=== PATIENT | female | born 1940 | race Hispanic/Latino ===

== ENCOUNTER → 2020-06-27 | Day surgery (SDC) | payer OTHER ==
[~2020-06-27] MED LIST: BUPIVACAINE 0.25% PF 10 ML VIAL ONE
--- OUTSIDE RECORDS SUMMARY | 2020-06-27 07:15 | XMS REPORT | Continuity of Care Document ---
:[address] [facility] t Address [address] [place] [address] Care Team Providers Name Role Phone Julio Cesar Jennings Attending Clinician Doctor Unassigned, Name Attending Clinician Unavailable Carmine North MD Attending Clinician Problems This patient has no known problems. Allergies, Adverse Reactions, Alerts Allergy Allergy Status Severity Reaction(s) Onset Inactive Treating Comm ents Source Name Type Date Date Clinician penicill Adverse Active Info Not [facility] Macrodan Adverse Active Info Not [facility] tin Reaction Available [facility] Cipro Adverse Active Info Not [facility] Reaction Available [facility] Bactrim Adverse Active Info Not [facility] DS Reaction Available [facility] Medications Ordered Filled Start Stop Current Ordering Indication Dosage Frequency Signature Comments Components Source Medication Medication Date Date Medication? Clinician (SIG) Name Name Mary Hernandez Yes Yung 1 tablet [facility] Procedures This patient has no known procedures. Encounters Start End Encounter Admission Attending Care Care Encounter Source Date/Time Date/Time Type Type Clinicians Facility Department ID 2020-05-04 2020-05-04 Refill LOIS Lovell [id number] 00:00:00 00:00:00 Julio Cesar [facility] [id number] Surgical [id number] Specialti [id number] es [address] [place] 2020-05-03 2020-05-03 [facility] [id number] [facility] 2020-04-08 2020-04-08 [facility] [id number] [facility]00 [facility] 2020-04-06 2020-04-06 Orders Doctor MINGO [id number] 00:00:00 00:00:00 Only Unassigned, [facility] [id number] [facility] [id number] 2020-04-05 2020-04-05 [facility] [id number] 00:00:00 00:00:00 [facility] [id number] Surgical [id number] Specialti [id number] es [address] [place] 2020-04-04 2020-04-04 Outpatient [facility] [id number] [facility] 00[facility]:00 [facility] 2020-03-24 2020-03-24 Orders Doctor AGUILA [id number] 00:00:00 00:00:00 Only Unassigned, RANDOL[place] [id number] [facility] [id number] 2020-03-14 2020-03-14 [facility] [id number] 00:00:00 00:00:00 [facility] [id number] Surgical [id number] Specialti [id number] es [address] [place] 2020-03-09 2020-03-09 [facility] [id number] 13:35:04 23:59:00 Encounter Navi Ngo [place] [id number] [place] [id number] [place] [id number] 2020-03-09 2020-03-09 Office Can RILILIAN [id number] 13:56:50 14:25:04 Visit [place] [id number] Surgical [id number] [facility] [id number] es Aura Thomas 2020-03-07 2020-03-07 Outpatient [facility] [id number] [facility] 2020-03-04 2020-03-04 [facility] [id number] [facility] 2020-03-01 2020-03-01 [facility] [id number] [facility] 2020-02-19 2020-02-19 Outpatient [facility] [id number] [facility] 2020-02-18 2020-02-18 Out[facility] [id number] [facility] 2020-02-11 2020-02-11 Out[facility] [id number] [facility] 2020-02-05 2020-02-05 [facility] [id number] [facility] 09:53:00 09:53:00 [facility] l Medicine Outpati ent Clinics 2020-02-04 2020-02-04 [facility] [id number] 10:45:00 10:45:00 t [facility] - Drive [facility] l Medicine Outpati ent Clinics 2020-02-02 2020-02-02 [facility] [id number] [address] 10:40:00 10:40:00 t [facility] - Drive [facility] Medicine l Medicine Outpati ent Clinics 2020-01-22 2020-01-22 [facility] [id number] 09:57:00 09:57:00 t [facility] [employer] [facility] Medicine l Medicine Outpati ent Clinics 2020-01-20 2020-01-20 [facility] [id number] 11:35:00 11:35:00 t [facility] l Medicine Outpati ent Clinics 2020-01-01 2020-01-01 [facility] [id number] 08:45:00 08:45:00 t [facility] l Medicine Outpati ent Clinics 2019-12-14 2019-12-14 [facility] [id number] [facility] 13:15:00 13:15:00 t Specialty/U Fide kes - Specialty rology Memori a /Urology Clinic l Clinic Outpati ent Clinics 2019-12-14 2019-12-14 [facility] [id number] [address] 09:00:00 09:00:00 t [facility] Medicine Outpati ent Clinics 2019-11-27 2019-11-27 [facility] [id number] 15:47:00 15:47:00 t [facility] Medicine Outpati ent Clinics 2019-11-05 2019-11-05 [facility] [id number] 16:14:00 16:14:00 t [facility] l Medicine Outpati ent Clinics 2019-10-14 2019-10-14 [facility] [id number] 10:30:00 10:30:00 t Specialty/U Fide kes - Specialty rology Memori a /Urology Clinic l Clinic Outpati ent Clinics 2019-10-02 2019-10-02 [facility] [id number] [facility] 10:04:00 10:04:00 t [facility] Medicine Outpati ent Clinics 2019-10-02 2019-10-02 [facility] [id number] [address] 10:00:00 10:00:00 t [facility] l Medicine Outpati ent Clinics 2019-10-02 2019-10-02 [facility] [id number] 09:15:00 09:15:00 [place] [employer] s - Drive [facility] Medicine l Medicine Outpati ent Clinics 2019-09-04 2019-09-04 [facility] [id number] 10:51:00 10:51:00 t [place] K[place] s - Drive [facility] Medicine Outpati ent Clinics 2019-07-16 2019-07-16 [facility] [id number] 13:32:00 13:32:00 t [place] K[place] s - Drive [facility] l Medicine Outpati ent Clinics 2019-07-15 2019-07-15 [facility] [id number] 09:30:00 09:30:00 t Specialty/U Fide kes - Specialty rology Memori a /Urology Clinic l Clinic Outpati ent Clinics 2019-07-08 2019-07-08 [facility] [id number] [facility] 16:44:00 16:44:00 [place] - Drive [facility] Medicine Outpati ent Clinics 2019-07-02 2019-07-02 [facility] [id number] 09:30:00 09:30:00 [place] - Drive [facility] Medicine Outpati ent Clinics 2019-06-25 2019-06-25 [facility] [id number] 09:30:00 09:30:00 t Specialty/U Fide kes - Specialty rology Memori a /Urology Clinic l Clinic Outpati ent Clinics 2019-06-16 2019-06-16 [facility] [id number] [facility] 14:49:00 14:49:00 [place] - Drive [facility] Medicine Medicine Outpati ent Clinics 2019-04-21 2019-04-21 [facility] [id number] 16:37:00 16:37:00 [place] - Drive [facility] l Medicine Outpati ent Clinics 2019-04-03 2019-04-03 [facility] [id number] 10:18:00 10:18:[address] [place] [address] - Drive [facility] Medicine Medicine Outpati ent Clinics 2019-04-01 2019-04-01 [facility] [id number] 09:45:00 09:45:[address] [place] [address] - Drive [facility] Medicine l Medicine Outpati ent Clinics 2019-02-19 2019-02-19 [facility] [id number] [facility] 14:34:00 14:34:[address] [place] [address] - Drive [facility] Medicine Medicine Outpati ent Clinics 2019-02-18 2019-02-18 [facility] [id number] [address] 08:03:00 08:03:[address] [place] [address] - Drive [facility] l Medicine Outpati ent Clinics 2019-02-17 2019-02-17 [facility] [id number] 08:36:00 08:36:00 [place] [employer] Luke s - Drive [facility] Medicine Outpati ent Clinics 2019-02-17 2019-02-17 [facility] [id number] 08:30:00 08:30:00 [place] [employer] Luke s - Drive [facility] Medicine Outpati ent Clinics 2019-02-12 2019-02-12 [facility] [id number] 14:02:00 14:02:00 [place] [employer] Luke s - Drive [facility] Medicine Outpati ent Clinics 2019-01-29 2019-01-29 [facility] [id number] 15:37:00 15:37:[address] [place] [address] - Drive [facility] Medicine Medicine Outpati ent Clinics 2018-12-17 2018-12-17 [facility] [id number] 15:00:00 15:00:[address] [place] [address] - Drive [facility] Medicine Outpati ent Clinics 2018-12-11 2018-12-11 [facility] [id number] [facility] 08:15:00 08:15:00 [place] [employer] Luke s - Drive [facility] Medicine Outpati ent Clinics 2018-12-10 2018-12-10 [facility] [id number] 13:26:00 13:26:[address] [place] [address] - Drive [facility] Medicine l Medicine Outpati ent Clinics 2018-12-10 2018-12-10 [facility] [id number] 11:15:00 11:15:[address] [place] [address] - Drive [facility] Medicine l Medicine Outpati ent Clinics 2018-11-25 2018-11-25 [facility] [id number] 09:51:00 09:51:[address] [place] [address] - Drive [facility] Medicine l Medicine Outpati ent Clinics 2018-11-12 2018-11-12 [facility] [id number] 16:03:00 16:03:[address] [place] [address] - Drive [facility] Medicine l Medicine Outpati ent Clinics 2018-09-30 2018-09-30 [facility] [id number] 10:20:00 10:20:[address] [place] [address] - Drive [facility] Medicine l Medicine Outpati ent Clinics 2018-09-25 2018-09-25 [facility] [id number] 09:30:00 09:30:[address] [place] [address] - Drive [facility] Medicine l Medicine Outpati ent Clinics 2018-09-22 2018-09-22 [facility] [id number] 12:14:00 12:14:[address] [place] [address] - Drive [facility] Medicine l Medicine Outpati ent Clinics 2018-09-10 2018-09-10 [facility] [id number] 11:30:00 11:30:[address] [place] [address] - Drive [facility] Medicine l Medicine Outpati ent Clinics 2018-08-26 2018-08-26 [facility] [id number] 08:30:00 08:30:[address] [place] [address] - Drive [facility] Medicine l Medicine Outpati ent Clinics 2018-08-20 2018-08-20 [facility] [id number] 14:30:00 14:30:[address] [place] [address] - Drive [facility] Medicine l Medicine Outpati ent Clinics 2018-08-19 2018-08-19 [facility] [id number] [facility] 12:42:00 12:42:00 t [facility] ent Clinics 2018-08-07 2018-08-07 [facility] [id number] 08:53:00 08:53:00 [place] [employer] - [employer] [facility] ent Clinics 2018-08-01 2018-08-01 [facility] [id number] [facility] 11:15:00 11:15:00 t [facility] 2018-07-25 2018-07-25 [facility] [id number] 10:45:00 10:45:00 [place] [employer] - [employer] [facility] ent Clinics 2018-07-23 2018-07-23 [facility] [id number] 09:00:00 09:00:00 t [facility] ent Clinics 2018-07-09 2018-07-09 [facility] [id number] 14:55:00 14:55:00 t [facility] ent Clinics 2018-07-04 2018-07-04 [facility] [id number] 14:54:00 14:54:00 [place] [facility] - [facility] ent Clinics 2018-06-10 2018-06-10 [facility] [id number] [address] 13:30:00 13:30:00 [place] [employer] - [employer] [facility] ent Clinics 2018-05-28 2018-05-28 [facility] [id number] 11:17:00 11:17:00 [place] - Drive [facility] ent Clinics 2018-05-27 2018-05-27 [facility] [id number] 10:45:00 10:45:[address] [place] [address] - [address] [facility] Medicine l Medicine Outpati ent Clinics 2018-05-27 2018-05-27 [facility] [id number] 09:58:00 09:58:[address] [place] [address] - Drive [facility] Medicine l Medicine Outpati ent Clinics 2018-05-23 2018-05-23 [facility] [id number] 15:20:00 15:20:[address] [place] [address] - Drive [facility] Medicine l Medicine Outpati ent Clinics 2018-05-15 2018-05-15 [facility] [id number] 12:06:00 12:06:[address] - [address] [facility] l Medicine Outpati ent Clinics 2018-04-29 2018-04-29 [facility] [id number] 14:06:00 14:06:[address] [place] [address] - [address] [facility] Medicine l Medicine Outpati ent Clinics 2018-02-25 2018-02-25 [facility] [id number] 08:31:00 08:31:[address] [place] [address] - Drive [facility] Medicine l Medicine Outpati ent Clinics 2018-02-24 2018-02-24 [facility] [id number] [facility] 09:30:00 09:30:[address] [place] [address] - Drive [facility] Medicine l Medicine Outpati ent Clinics 2018-01-30 2018-01-30 [facility] [id number] 11:22:00 11:22:[address] [place] [address] - [address] [facility] Medicine l Medicine Outpati ent Clinics 2018-01-27 2018-01-27 [facility] [id number] [facility] 09:16:00 09:16:[address] [place] [address] - Drive [facility] Medicine l Medicine Outpati ent Clinics 2018-01-15 2018-01-15 [facility] [id number] [facility] 13:10:00 13:10:[address] [place] [address] - Drive [facility] Medicine l Medicine Outpati ent Clinics 2018-01-13 2018-01-13 [facility] [id number] 14:29:00 14:29:[address] - [address] [facility] Medicine Outpati ent Clinics 2018-01-08 2018-01-08 [facility] [id number] 09:00:00 09:00:[address] - Drive [facility] Medicine Outpati ent Clinics 2017-12-19 2017-12-19 [facility] [id number] 10:30:00 10:30:00 [place] [employer] - Drive [facility] Medicine Outpati ent Clinics 2017-12-16 2017-12-16 [facility] [id number] 08:45:00 08:45:00 [place] - Drive [facility] Medicine Outpati ent Clinics 2017-09-16 2017-09-16 [facility] [id number] [facility] 14:47:00 14:47:00 [place] - Drive [facility] Medicine Outpati ent Clinics 2017-09-16 2017-09-16 [facility] [id number] [facility] 10:00:00 10:00:00 [place] - Drive [facility] Medicine Outpati ent Clinics 2017-08-13 2017-08-13 [facility] [id number] 09:30:00 09:30:00 t [place] - Drive [facility] Medicine Outpati ent Clinics Results This patient has no known results.
--- OUTSIDE RECORDS SUMMARY | 2020-06-27 07:16 | XMS REPORT | Summary of Care ---
:1940 Author Organization [facility] - Health Address [address] [place] [address] Care Team Providers Name Role Phone Yung Reyes Primary Care Provider Encounter Details Date Type Department Care Team Description 04/06/2020 Orders Only [facility] Doctor Unassigned, No [address] [facility] [place] [address] [address] [facility] [place] [phone] Allergies Active Allergy Reactions Severity Noted Date Comments Ciprofloxacin Other - See comments 08/05/2015 Dye Other - See comments 08/05/2015 Penicillins Other - See comments 08/05/2015 Sulfa (Sulfonamide Antibiotics) Other - See comments 0 08/05/2015 documented as of this encounter (statuses as of 04/20/2020) Medications Medication Sig Dispensed Refills Start Date End Date Status simvastatin (ZOCOR) 40 0 05/08/2015 Active mg tablet levothyroxine 0 06/03/2015 Activ e (SYNTHROID) 125 mcg tablet ferrous sulfate 325 mg 0 07/21/2015 Active (65 mg iron) tablet HYDROcodone-acetaminophe 0 08/02/2015 Active n (NORCO 5) 5-325 mg tablet ALPRAZolam (XANAX) 0.25 Take 0.25 mg by 0 Active mg tablet mouth 3 (three) times daily. meclizine (ANTIVERT) 25 Take 25 mg by 0 Active mg tablet mouth 3 (three) times daily as needed. metoprolol succinate XL Take 50 mg by 0 Active (TOPROL XL) 50 mg 24 hr mouth daily. tablet losartan-hydrochlorothia Take 1 Tab by 0 Active zide (HYZAAR) 100-25 mg mouth daily. per tablet sitagliptin-metformin Take by mouth. 0 Active (JANUMET XR) 50-1,000 mg per tablet traMADOL (ULTRAM) 50 mg Take 1 tablet by 40 tablet 0 6 Active tablet mouth every 6 (six) hours as needed (prn pain). diclofenac 75 mg EC Take 1 tablet by 60 tablet 1 03/09/2020 Active tabletIndications: Pain mouth 2 (two) in both knees, times daily with unspecified chronicity meals. DICLOFENAC 75 mg EC TAKE 1 TABLET BY 60 tablet 0 04/05/2020 Active tabletIndications: Pain MOUTH TWICE in both knees, DAILY WITH MEALS unspecified chronicity documented as of this encounter (statuses as of 04/20/2020) Active Problems No known active problemsdocumented as of this encounter (statuses as of 04/20/2020) Social History Tobacco Use Types Packs/Day Years Used Date Never Smoker Alcohol Use Drinks/Week oz/Week Comments Not Asked 0 Standard drinks or equivalent 0.0 Sex Assigned at Date Recorded Not on file COVID-19 Exposure Response Date Recorded In the last month, have you been in contact with No / Unsure 03/09/2020 2:01 PM CDT someone who was confirmed or suspected to have Coronavirus / COVID-19? documented as of this encounter Last Filed Vital Signs Not on filedocumented in this encounter Plan of Treatment Health Maintenance Due Date Last Done Comments DTaP,Tdap,and Td Vaccines (1 - Tdap) 1959 Zoster Recombinant Vaccine (SHINGRIX) (1 of 2) 1992 Medicare Wellness Visit 12/22/2007 Osteoporosis Screening 12/22/2007 PNEUMOCOCCAL VACCINES 65+ (1 of 1 - PPSV23) 12/22/2007 INFLUENZA VACCINE (#1) 2020 Depression Screening 03/09/2021 03/09/2020 documented as of this encounter Procedures Procedure Name Priority Date/Time Associated Diagnosis Comme nts EXTERNAL PROVIDER - ADC Routine 04/06/2020 12:01 AM 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
--- OUTSIDE RECORDS SUMMARY | 2020-06-27 07:16 | XMS REPORT ---
:1940 Author Organization [facility] Address [address] [place] [address] Care Team Providers Name Role Phone Yung Reyes Unavailable [phone] PROBLEMS Type Condition ICD9-CM [id number] Onset Condition SNOMED Code Notes Code Code Dates Status Problem Vitamin B 12 E53.8 Active 32859501 deficiency Problem Depression with F41.8 Active 362295227 anxiety Problem Cirrhosis of liver K74.60 Active 63078873 Problem Chronic kidney N18.3 Active 720391307 disease, stage 3 Problem Malaise and R53.81 Active 012181966 fatigue Problem Nausea R11.0 Active 084995370 Problem Hypomagnesemia E83.42 Active 525576274 Problem Osteoarthritis of M15.9 Active 497005761 multiple joints Problem GERD without K21.9 Active 907775343 esophagitis Problem Hyperlipidemia, E78.2 Active 665402486 mixed Problem Decreased hearing H91.93 Active 036136763 of both ears Problem 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 Active 73520085 simplex virus) anogenital infection Problem Diverticulosis of K57.30 Active 578618956 colon Problem Varicose veins I86.8 Active 559495140 Problem Slow transit K59.01 Active 27008367 constipation Problem Elevated alkaline R74.8 Active 762193005 phosphatase level Problem Encounter for Z01.419 Active 901204311 gynecological examination without abnormal finding Problem Hypothyroidism E03.9 Active 53114754 Problem Encounter for Z12.31 Active 024423714 screening mammogram for breast cancer Problem Vitamin D E55.9 Active 43713897 deficiency Problem Torus fracture of S52.522S Active 897151127 lower end of left radius, sequela Problem Hypertension I10 Active 12953231 Problem Left ovarian cyst N83.202 Active 59962959225085 108 Problem Dizziness R42 Active 153054498 Problem Migraine without G43.009 Active 154236882 aura and without status migrainosus, not intractable Problem Allergic rhinitis, J30.2 Active 769413443 seasonal Problem Displaced fracture S42.252S Active 749326182 of greater tuberosity of left humerus, sequela Problem Iron deficiency D50.0 Active 376663836 anemia due to chronic blood loss Problem Chronic J44.9 Active 32174035 obstructive pulmonary disease, unspecified COPD type Problem Urinary R32 Active 225763539 incontinence, unspecified type Problem Anemia, D64.9 Active 425157988 unspecified type Problem Generalized F41.1 Active 24281836 anxiety disorder Problem Secondary I85.10 Active 16362226 esophageal varices without bleeding Problem Diabetic E11.40 Active 812757160 neuropathy Problem Stress N39.3 Active 90658481 incontinence Problem Thrombocytopenia D69.6 Active 200455179 Problem Cervical disc M50.121 Active 663525121 disorder at C4-C5 level with radiculopathy Problem Gastritis K29.70 Active 5242699 Problem Intramural D25.1 Active 39103394 leiomyoma of uterus Problem Venous I87.2 Active 49210616 insufficiency Problem Current moderate F32.1 Active 05489708 episode of major depressive disorder without prior episode Problem [facility] Z79.4 Active 519208693 (current) use of insulin Problem Diabetes type 2, E11.65 Active 999912039 uncontrolled Problem Chronic kidney N18.3 Active 435777773 disease, stage 3 (moderate) Problem Type 2 diabetes E11.22 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 mellitus with diabetic chronic kidney disease ALLERGIES Allergen (clinical drug Drug/Non Drug Reaction Allergy Type Onset D ate Status ingredient) Allergy documented on EMR nitrofurantoin Macrodantin(NDC Unknown Drug Allergy Act chucho Code:[address]-89) ciprofloxacin Cipro(NDC Unknown Drug Allergy Active Code:[address]-97) sulfamethoxazole / Bactrim DS(NDC Unknown Drug Allergy Active trimethoprim Code:[address]-21) penicillin Unknown Drug Allergy Active ENCOUNTERS from 1940 to 2020-04-08 Encounter Location Date Provider Diagnosis Mikael Bowles [address], [place] [address] IMMUNIZATIONS No Information SOCIAL HISTORY Sex Assigned At : Social History Observation Description Sex Assigned At Unknown PHQ9 Question Answer Notes Little interest or pleasure in doing things More than half t he days Feeling down, depressed, or hopeless Several days Trouble falling or staying asleep or sleeping too much Not a t all Feeling tired or having little energy Not at all Poor appetite or overeating Several days Feeling bad about yourself, or that you are a failure, Not a t all or have let yourself or your family down Trouble concentrating on things, such as reading the Not at all newspaper or watching television Moving or speaking so slowly that other people could Not at all have noticed; or the opposite, being so fidgety or restless that you have been moving around a lot more than usual Total Score 4 Interpretation Minimal Depression Thoughts that you would be better off or of Not at all hurting yourself in some way REASON FOR REFERRAL No Information VITAL SIGNS No information MEDICATIONS Medication SIG (Take, Route, Notes Start Date End Date Status Frequency, Duration) Diazepam 5 MG (Schedule IV Drug) Act chucho TK 1 T PO QD Orally Once a day for 14 Aspirin 81 81 MG 1 tablet Orally Once Active a day Pravastatin Sodium 40 MG 1 tablet Orally Once Active a day NovoLog Mix 70/30 Flexpen INJECT 70 UNITS Active (70-30) 100 UNIT/ML UNDER THE SKIN EVERY MORNING WITH BREAKFAST AND 40 UNITS EVERY EVENING WITH DINNER for 27 Cozaar 100 MG 1 tablet Orally Once A ctive a day for 90 days Magnesium Oxide 400 MG 1 tablet as needed Active Orally Three times a day for 30 Levothyroxine Sodium 137 MCG 1 tablet on an empty Active stomach in the morning Orally Once a day for 90 days Pravastatin Sodium 40 MG TAKE 1 TABLET BY Active MOUTH EVERY DAY for 90 Breo Ellipta 200-25 MCG/INH 1 puff Inhalation Active Once a day for 30 Meclizine HCl 25 MG 1 tablet as needed Active Orally Once a day PRN Dizziness for 30 day(s) Hydrocodone-Acetaminophen 1 tablet as needed Active 5-325 MG Orally every 6 hrs Furosemide 20 MG TAKE 1 TABLET BY Ac tive MOUTH EVERY DAY for 90 Levothyroxine Sodium 137 MCG TAKE 1 TABLET BY Not-Taking MOUTH EVERY DAY for 90 Losartan Potassium 100 1 tablet Orally Once Not-Taking a day for 30 Promethazine HCl 25 MG TAKE 1 TABLET BY Active MOUTH EVERY DAILY NEEDED FOR FOR NAUSEA AND VOMITING for 30 NovoFine 32G X 6 MM as directed SB Twice Active a day for 90 days Amlodipine Besylate 10 MG TAKE 1 TABLET BY Active MOUTH EVERY DAY for 90 NovoLog Mix 70/30 Flexpen INJECT 70 UNITS Active (70-30) 100 UNIT/ML UNDER THE SKIN EVERY MORNING WITH BREAKFAST AND 40 UNITS EVERY EVENING WITH DINNER Subcutaneous Twice a day for 90 days Acyclovir 200 MG TAKE 1 CAPSULE BY A ctive MOUTH THREE TIMES DAILY for 30 OneTouch Ultra Test - TEST THREE TIMES Not-Taking DAILY for 30 Diazepam 5 MG 1 tablet at bedtime Ac tive Orally Once a day Hydrochlorothiazide 25 MG TAKE 1 TABLET BY Active MOUTH EVERY MORNING for 90 OneTouch Ultra - TEST THREE TIMES Ac tive DAILY for 66 Diclofenac Sodium 75 MG 1 tablet Orally Not-Taking Twice a day Omeprazole 40 MG 1 capsule Orally Ac tive Once a day for 90 days OneTouch Ultra Test - TEST THREE TIMES Active DAILY for 90 days Metoprolol Succinate ER 50 TAKE 1 TABLET BY Active MG MOUTH EVERY DAY for 90 Omeprazole 40 MG 1 capsule Orally No t-Taking Once a day for 90 Ferrous Sulfate 325 (65 Fe) 1 tablet Orally BID Active MG for 90 days Hydrocodone-Acetaminophen Not-Taking Estradiol 0.1 MG/GM 1/2 gm Vaginal as Active directed for 90 days Omeprazole 40 1 capsule Orally Not-T aking Once a day for 30 Losartan Potassium 100 MG TAKE 1 TABLET BY Active MOUTH EVERY DAY for 30 Aspirin 81 81 MG 1 tablet Orally Once Active a day Paroxetine HCl 10 MG 1 tablet in the Not-Taking morning Orally Once a day Promethazine HCl 25 MG 1 tablet as needed Active TOPICAL Once a day PROCEDURES No Information RESULTS No Results REASON FOR VISIT Question ? MEDICAL (GENERAL) HISTORY Type Description Date Medical History Cirrhosis of liver Medical History Nausea Medical History Diabetes type 2, uncontrolled Medical History Diabetic neuropathy Medical History Hypertension Medical History Hyperlipidemia, mixed Medical History Hypothyroidism Medical History Depression with anxiety Medical History GERD (gastroesophageal reflux disease) Medical History Osteoarthritis of multiple joints Medical History Diverticulosis of colon Medical History Intramural leiomyoma of uterus Medical History Iron deficiency anemia due to chronic bl ood loss Medical History Vitamin B 12 deficiency Medical History Dizziness Medical History Allergic rhinitis, seasonal Medical History Varicose veins Medical History Malaise and fatigue Medical History Venous insufficiency Medical History Chronic kidney disease, stage 3 Medical History Vitamin D deficiency Medical History Elevated alkaline phosphatase level Medical History Thrombocytopenia Medical History Secondary esophageal varices without ble eding Medical History Gastritis Medical History Cervical disc disorder at C4-C5 level wi th radiculopathy Medical History HSV (herpes simplex virus) anogenital in fection Medical History Hypomagnesemia Medical History Depression with anxiety Medical History Morbid obesity due to excess calories Medical History Anxiety disorder, unspecified Medical History Unspecified abnormalities of gait and mo bility Medical History Dizziness and giddiness Medical History [facility] current use of insulin Medical History [facility] current use of opiate analgesi c Medical History Allergy status to sulfonamides status Medical History Hyperlipidemia Medical History Benign essential hypertension Medical History Incontinence of urine Medical History Pain Medical History [facility] current use of aspirin Medical History Allergy status to penicillin Surgical History Cholecystectomy Surgical History Cataract surgery to both eyes Surgical History Laser treatment to both eyes Surgical History Hemorrhoidectomy Surgical History Positive for anxiety, depression, diabet es, insulin-dependent diabetes mellitus, gas tritis, hypertension, and hypothyroidism. Hospitalization History Childbirth Goals Section No Information Health Concerns No Information MEDICAL EQUIPMENT No Information MENTAL STATUS No Information FUNCTIONAL STATUS No Information ASSESSMENTS No Information PLAN OF TREATMENT Medication Medication Name Sig Start Date Stop Date Ferrous Sulfate 325 (65 Fe) MG 1 tablet Orally BID for 90 days Losartan Potassium 100 MG TAKE 1 TABLET BY MOUTH EVERY DAY for 30 NovoLog Mix 70/30 Flexpen (70-30) INJECT 70 UNITS UNDER THE SKIN 100 UNIT/ML EVERY MORNING WITH BREAKFAST AND 40 UNITS EVERY EVENING WITH DINNER for 27 Omeprazole 40 MG 1 capsule Orally Once a day for 90 days Metoprolol Succinate ER 50 MG TAKE 1 TABLET BY MOUTH EVERY DAY for 90 Breo Ellipta 200-25 MCG/INH 1 puff Inhalation Once a day for 30 OneTouch Ultra - TEST THREE TIMES DAILY for 66 Furosemide 20 MG TAKE 1 TABLET BY MOUTH EVERY DAY for 90 Amlodipine Besylate 10 MG TAKE 1 TABLET BY MOUTH EVERY DAY for 90 Levothyroxine Sodium 137 MCG 1 tablet on an empty stomach in the morning Orally Once a day for 90 days Meclizine HCl 25 MG 1 tablet as needed Orally Once a day PRN Dizziness for 30 day(s) OneTouch Ultra Test - TEST THREE TIMES DAILY for 90 days Promethazine HCl 25 MG TAKE 1 TABLET BY MOUTH EVERY DAILY NEEDED FOR FOR NAUSEA AND VOMITING for 30 Cozaar 100 MG 1 tablet Orally Once a day for 90 days NovoLog Mix 70/30 Flexpen (70-30) INJECT 70 UNITS UNDER THE SKIN 100 UNIT/ML EVERY MORNING WITH BREAKFAST AND 40 UNITS EVERY EVENING WITH DINNER Subcutaneous Twice a day for 90 days NovoFine 32G X 6 MM as directed SB Twice a day for 90 days Pravastatin Sodium 40 MG 1 tablet Orally Once a day Magnesium Oxide 400 MG 1 tablet as needed Orally Three times a day for 30 Next Appt Details Provider Name:Yung Reyes, 2020-04-27 0 8:45:00 AM, [address], [place], [address], Provider Name:Yung Reyes, 2020-05-03 1 0:10:00 AM, [address], [place], [address], Insurance Providers Payer Name Payer Payer Insured Name Patient Coverage Covera ge End Address Phone Relationship to Start Date Fabiano e Insured [employer] [phone] Galdamez De self 2005 MEDICARE [id number] [id number] [facility] [address]
--- OUTSIDE RECORDS SUMMARY | 2020-06-27 07:16 | XMS REPORT ---
:1940 Author Organization [facility] Address [address] [place] [address] Care Team Providers Name Role Phone Yung Reyes Unavailable [phone] PROBLEMS Type Condition ICD9-CM NTN43-AE Onset Condition SNOMED Code Notes Code Code Dates Status Problem Vitamin B 12 E53.8 Active 52785405 deficiency Problem Depression with F41.8 Active 457482363 anxiety Problem Cirrhosis of liver K74.60 Active 34545905 Problem Chronic kidney N18.3 Active 430788458 disease, stage 3 Problem Malaise and R53.81 Active 458513464 fatigue Problem Nausea R11.0 Active 736956744 Problem Hypomagnesemia E83.42 Active 372245955 Problem Osteoarthritis of M15.9 Active 478128316 multiple joints Problem GERD without K21.9 Active 238498706 esophagitis Problem Hyperlipidemia, E78.2 Active 590251625 mixed Problem Decreased hearing H91.93 Active 602283826 of both ears Problem 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 Active 97915244 simplex virus) anogenital infection Problem Diverticulosis of K57.30 Active 471530059 colon Problem Varicose veins I86.8 Active 694570449 Problem Slow transit K59.01 Active 04326812 constipation Problem Elevated alkaline R74.8 Active 657217484 phosphatase level Problem Encounter for Z01.419 Active 838656456 gynecological examination without abnormal finding Problem Hypothyroidism E03.9 Active 11453718 Problem Encounter for Z12.31 Active 795046738 screening mammogram for breast cancer Problem Vitamin D E55.9 Active 54955964 deficiency Problem Torus fracture of S52.522S Active 213980608 lower end of left radius, sequela Problem Hypertension I10 Active 71828614 Problem Left ovarian cyst N83.202 Active 47063248625648 108 Problem Dizziness R42 Active 267316866 Problem Migraine without G43.009 Active 062521704 aura and without status migrainosus, not intractable Problem Allergic rhinitis, J30.2 Active 635747088 seasonal Problem Displaced fracture S42.252S Active 997910458 of greater tuberosity of left humerus, sequela Problem Iron deficiency D50.0 Active 523979075 anemia due to chronic blood loss Problem Chronic J44.9 Active 95536018 obstructive pulmonary disease, unspecified COPD type Problem Urinary R32 Active 222585801 incontinence, unspecified type Problem Anemia, D64.9 Active 877539890 unspecified type Problem Generalized F41.1 Active 14580880 anxiety disorder Problem Secondary I85.10 Active 03350428 esophageal varices without bleeding Problem Diabetic E11.40 Active 408708246 neuropathy Problem Stress N39.3 Active 65931123 incontinence Problem Thrombocytopenia D69.6 Active 504504980 Problem Cervical disc M50.121 Active 516080951 disorder at C4-C5 level with radiculopathy Problem Gastritis K29.70 Active 9854184 Problem Intramural D25.1 Active 37215188 leiomyoma of uterus Problem Venous I87.2 Active 28706326 insufficiency Problem Current moderate F32.1 Active 96905209 episode of major depressive disorder without prior episode Problem [facility] Z79.4 Active 267744895 (current) use of insulin Problem Diabetes type 2, E11.65 Active 186423562 uncontrolled Problem Chronic kidney N18.3 Active 031658168 disease, stage 3 (moderate) Problem Type 2 diabetes E11.22 Active 33458954 mellitus with diabetic chronic kidney disease ALLERGIES Allergen (clinical drug Drug/Non Drug Reaction Allergy Type Onset D ate Status ingredient) Allergy documented on EMR nitrofurantoin Macrodantin(NDC Unknown Drug Allergy Act chucho Code:[address]-88) ciprofloxacin Cipro(NDC Unknown Drug Allergy Active Code:[address]-17) sulfamethoxazole / Bactrim DS(NDC Unknown Drug Allergy Active trimethoprim Code:[address]-51) penicillin Unknown Drug Allergy Active ENCOUNTERS from 1940 to 2020-04-04 Encounter Location Date Provider Diagnosis Mikael Robinson Wilbur [address] [facility] [place], [facility] Reyes Hyp ertension I10 and Family [facility] [address] [place], [place] [address] I87.2 IMMUNIZATIONS No Information SOCIAL HISTORY Sex Assigned [...] Information RESULTS No Results REASON FOR VISIT Swelling of feet MEDICAL (GENERAL) HISTORY Type Description Date Medical [...] Medical History Dizziness and giddiness Medical History penitentiary current use of insulin Medical History penitentiary current use of opiate analgesi c Medical History Allergy status to sulfonamides status Medical History Hyperlipidemia Medical History Benign essential hypertension Medical History Incontinence of urine Medical History Pain 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 Medical History Allergy [...] No Information FUNCTIONAL STATUS No Information ASSESSMENTS Encounter Date Diagnosis Assessment Notes Treatment Notes Treatm ent Clinical Notes Mar, Hypertension (ICD-10 - I10) Mar, Venous insufficiency (ICD-10 - I87.2) PLAN OF TREATMENT Medication Medication Name Sig [...] 8:45:00 AM, [address], [place], [address], Provider Name:Yung Reyes 2020-05-03 1 0:10:00 AM, [address], [address], [place], [address], Insurance Providers Payer Name Payer Payer Insured Name Patient Coverage Covera ge End Address Phone Relationship to Start Date Fabiano e Insured [employer] [phone] Galdamez De self 2005 MEDICARE [id number] [id number] [facility] [address]
--- OUTSIDE RECORDS SUMMARY | 2020-06-27 07:16 | XMS REPORT | Summary of Care ---
:1940 Author Organization [facility] Address [address] [place] [address] Care Team Providers Name Role Phone Yung Reyes Primary Care Provider Reason for Visit Reason Comments Refill Request Encounter Details Date Type Department Care Team Description 04/05/2020 Refill [facility] Orthopaedic Álvaro Lovell, PAC Refill Request Surgery- [place] [address] [facility] [address] [facility], [place] [address] [address] [place] [address] [phone] Allergies Active Allergy Reactions Severity Noted Date Comments Ciprofloxacin Other - See comments 08/05/2015 Dye Other - See comments 08/05/2015 Penicillins Other - See comments 08/05/2015 Sulfa (Sulfonamide Antibiotics) Other - See comments 0 08/05/2015 documented as of this encounter (statuses as of 04/05/2020) Medications Medication Sig Dispensed Refills Start Date End Date Status simvastatin (ZOCOR) 0 05/08/2015 Active 40 mg tablet levothyroxine 0 06/03/2015 Activ e (SYNTHROID) 125 mcg tablet ferrous sulfate 325 0 07/21/2015 Active mg (65 mg iron) tablet HYDROcodone-acetamin 0 08/02/2015 Active ophen (NORCO 5) 5-325 mg tablet ALPRAZolam (XANAX) Take 0.25 mg 0 Active 0.25 mg tablet by mouth 3 (three) times daily. meclizine (ANTIVERT) Take 25 mg by 0 Active 25 mg tablet mouth 3 (three) times daily as needed. metoprolol succinate Take 50 mg by 0 Active XL (TOPROL XL) 50 mg mouth daily. 24 hr tablet losartan-hydrochloro Take 1 Tab by 0 Active thiazide (HYZAAR) mouth daily. 100-25 mg per tablet sitagliptin-metformi Take by 0 Active n (JANUMET XR) mouth. 50-1,000 mg per tablet traMADOL (ULTRAM) 50 Take 1 tablet 40 tablet 0 11/02/2015 Active mg tablet by mouth every 6 (six) hours as needed (prn pain). diclofenac 75 mg EC Take 1 tablet 60 tablet 1 03/09/2020 Active tabletIndications: by mouth 2 Pain in both knees, (two) times unspecified daily with chronicity meals. DICLOFENAC 75 mg EC TAKE 1 TABLET 60 tablet 0 04/05/2020 Active tabletIndications: BY MOUTH Pain in both knees, TWICE DAILY unspecified WITH MEALS chronicity DICLOFENAC 75 mg EC TAKE 1 TABLET 60 tablet 0 03/03/202004/05 Discontinued tabletIndications: BY MOUTH Pain in both knees, TWICE DAILY unspecified WITH MEALS chronicity documented as of this encounter (statuses as of 04/05/2020) Active Problems No known active problemsdocumented as of this encounter (statuses as of 04/05/2020) Social History Tobacco Use Types Packs/Day Years [...] filedocumented in this encounter Plan of Treatment Date Type Specialty Care Team Description 04/19/2020 Appointment Radiology [facility] MD [address] [phone] Health Maintenance Due Date Last Done Comments DTaP,Tdap,and Td Vaccines (1 - Tdap) 1961 Zoster Recombinant Vaccine (SHINGRIX) (1 of 2) 1992 Medicare Wellness Visit 12/22/2007 Osteoporosis Screening 12/22/2007 PNEUMOCOCCAL VACCINES 65+ (1 of 1 - PPSV23) 12/22/2007 INFLUENZA VACCINE (#1) 2020 Depression Screening 03/09/2021 03/09/2020 documented as of this encounter Results Not on filedocumented in this encounter Visit Diagnoses Diagnosis Pain in both knees, unspecified chronici ty documented in this encounter Insurance Payer Benefit Plan Subscriber ID Effective Phone Address Typ e / Group Dates [employer] - [id number]-Prese [address] Medic are Adv [place] [id number] [place] [address] documented as of this encounter
--- OUTSIDE RECORDS SUMMARY | 2020-06-27 07:17 | XMS REPORT ---
:1940 Author Organization [facility] Address 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 Active 443936008 multiple joints Problem GERD without K21.9 Active 784733816 esophagitis Problem Hyperlipidemia, E78.2 Active 715069483 mixed Problem Decreased hearing H91.93 Active 151855984 of both ears Problem 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 Active 54428477 simplex virus) anogenital infection Problem Diverticulosis of K57.30 Active 099542261 colon Problem Varicose veins I86.8 Active 895441761 Problem Slow transit K59.01 Active 81301682 constipation Problem Elevated alkaline R74.8 Active 841012173 phosphatase level Problem Encounter for Z01.419 Active 838789577 gynecological examination without abnormal finding Problem Hypothyroidism E03.9 Active 49325205 Problem Encounter for Z12.31 Active 089716198 screening mammogram for breast cancer Problem Vitamin D E55.9 Active 60930657 deficiency Problem Torus fracture of S52.522S Active 655266402 lower end of left radius, sequela Problem Hypertension I10 Active 35679462 Problem Left ovarian cyst N83.202 Active 71062030942411 108 Problem Dizziness R42 Active 385193455 Problem Migraine without G43.009 Active 734959574 aura and without status migrainosus, not intractable Problem Allergic rhinitis, J30.2 Active 934017358 seasonal Problem Displaced fracture S42.252S Active 674417440 of greater tuberosity of left humerus, sequela Problem Iron deficiency D50.0 Active 473881167 anemia due to chronic blood loss Problem Chronic J44.9 Active 20762528 obstructive pulmonary disease, unspecified COPD type Problem Urinary R32 Active 298006506 incontinence, unspecified type Problem Anemia, D64.9 Active 927072523 unspecified type Problem Generalized F41.1 Active 26011764 anxiety disorder Problem Secondary I85.10 Active 63849586 esophageal varices without bleeding Problem Diabetic E11.40 Active 953095853 neuropathy Problem Stress N39.3 Active 82591373 incontinence Problem Thrombocytopenia D69.6 Active 411509550 Problem Cervical disc M50.121 Active 011531262 disorder at C4-C5 level with radiculopathy Problem Gastritis K29.70 Active 9602106 Problem Intramural D25.1 Active 02516628 leiomyoma of uterus Problem Venous I87.2 Active 01514412 insufficiency Problem Current moderate F32.1 Active 37973418 episode of major depressive disorder without prior episode Problem residential Z79.4 Active 399394199 (current) use of insulin Problem Diabetes type 2, E11.65 Active 447173312 uncontrolled Problem Chronic kidney N18.3 Active 368864474 disease, stage 3 (moderate) Problem Type 2 diabetes E11.22 Active 74436949 mellitus with diabetic chronic kidney disease ALLERGIES Allergen (clinical drug Drug/Non Drug Reaction Allergy Type Onset D ate Status ingredient) Allergy documented on EMR nitrofurantoin Macrodantin(NDC Unknown Drug Allergy Act chucho Code:[address]-47) ciprofloxacin Cipro(NDC Unknown Drug Allergy Active Code:[address]-42) sulfamethoxazole / Bactrim DS(NDC Unknown Drug Allergy Active trimethoprim Code:[address]-93) penicillin Unknown Drug Allergy Active ENCOUNTERS from 1940 to 2020-05-03 Encounter Location Date Provider Diagnosis Mikael Jimenez [address] [place], Yung Reyes Type [address], [place] [address] kidney disease E11.22 ; Chronic obstruc tive pulmonary disea se, unspecified SIEVE MAKER D type J44.9 ; Screeni ng mammogram, enco unter for Z12.31 ; Curren t moderate episod e of major depressiv e disorder withou t prior episode F32.1 ; Cirrhosis of li keshav K74.60 ; Iron d eficiency anemia due to c hronic blood loss D50. 0 ; GERD without esophag itis K21.9 ; Cervica l disc disorder at C4- C5 level with radiculopa thy M50.121 ; Traum atic ecchymosis of l eft lower leg, subsequent encounter S80.1 2XD ; Hypertension I1 0 ; History of fall within past 90 days Z9 1.81 ; Hypothyroidism E03.9 ; Hyperlipidemia, mixed E78.2 ; Migrain e without aura and withou t status migrainosus, no t intractable G43 .009 ; Chronic kidney disease, stage 3 N18.3 ; Non-compliant b ehavior R46.89 ; Hypoma gnesemia E83.42 ; Decrea sed hearing of both ears H91.93 ; Long t erm (current) use o f insulin Z79.4 ; General ized anxiety disorde r F41.1 ; Left leg pain M 79.605 ; Thrombocytopeni a D69.6 and Abdominal h ernia without obstruc tion and without gangren e, recurrence not specified, unsp ecified hernia type K46 .9 IMMUNIZATIONS No Information SOCIAL HISTORY Sex Assigned [...] REASON FOR REFERRAL No Information VITAL SIGNS Height 62.5 in Apr, Weight 206.1 lbs Apr, Temperature 97.2 degrees Fahrenheit Apr, BMI 37.09 kg/m2 Apr, Oximetry 97 % Apr, Respiratory Rate 19 /min Apr, Blood pressure systolic 135 mm Hg Apr, Blood pressure diastolic 68 mm Hg Apr, MEDICATIONS Medication SIG (Take, Route, Notes Start Date End Date Status Frequency, Duration) Diclofenac Sodium 75 MG 1 tablet Orally Not-Taking Twice a day Levothyroxine Sodium 137 MCG 1 tablet on an empty Active stomach in the morning Orally Once a day for 90 days Breo Ellipta 200-25 MCG/INH 1 puff Inhalation Active Once a day for 30 days Meclizine HCl 25 MG 1 tablet as needed Active Orally Once a day PRN Dizziness for 30 day(s) Hydrocodone-Acetaminophen 1 tablet as needed Active 5-325 MG Orally every 6 hrs OneTouch Ultra Test - TEST THREE TIMES Not-Taking DAILY for 30 Amlodipine Besylate 10 MG 1 tablet Orally Once Active a day for 90 days Diazepam 5 MG (Schedule IV Drug) Act chucho TK 1 T PO QD Orally Once a day for 14 Metoprolol Succinate ER 50 1 tablet Orally Once Active MG a day for 90 days OneTouch Ultra - TEST THREE TIMES Ac tive DAILY for 66 Magnesium Oxide 400 MG 1 tablet as needed Active Orally Three times a day for 30 Acyclovir 200 MG TAKE 1 CAPSULE BY N ot-Taking MOUTH THREE TIMES DAILY for 30 Amlodipine Besylate 10 MG TAKE 1 TABLET BY Active MOUTH EVERY DAY for 90 Cozaar 100 MG 1 tablet Orally Once A ctive a day for 90 days Aspirin 81 81 MG 1 tablet Orally Once Not-Taking a day Hydrocodone-Acetaminophen Not-Taking Pravastatin Sodium 40 MG TAKE 1 TABLET BY Active MOUTH EVERY DAY for 90 NovoFine 32G X 6 MM as directed SB Twice Active a day for 90 days OneTouch Ultra Test - TEST THREE TIMES Active DAILY for 90 days Furosemide 20 MG 1 tablet Orally Once Active a day for 90 days NovoLog Mix 70/30 Flexpen INJECT 70 UNITS Active (70-30) 100 UNIT/ML UNDER THE SKIN EVERY MORNING WITH BREAKFAST AND 40 UNITS EVERY EVENING WITH DINNER Subcutaneous Twice a day for 90 days Promethazine HCl 25 MG TAKE 1 TABLET BY Not-Taking MOUTH DAILY NEEDED FOR NAUSEA OR VOMITING for 30 Levothyroxine Sodium 137 MCG TAKE 1 TABLET BY Not-Taking MOUTH EVERY DAY for 90 Paroxetine HCl 10 MG 1 tablet in the Not-Taking morning Orally Once a day Omeprazole 40 MG 1 capsule Orally Ac tive Once a day for 90 days Metoprolol Succinate ER 50 TAKE 1 TABLET BY Active MG MOUTH EVERY DAY for 90 Omeprazole 40 1 capsule Orally Not-T aking Once a day for 30 Furosemide 20 MG TAKE 1 TABLET BY Ac tive MOUTH EVERY DAY for 90 Pravastatin Sodium 40 MG 1 tablet Orally Once Active a day Losartan Potassium 100 MG TAKE 1 TABLET BY Active MOUTH EVERY DAY for 30 Hydrochlorothiazide 25 MG TAKE 1 TABLET BY Not-Taking MOUTH EVERY MORNING for 90 Aspirin 81 81 MG 1 tablet Orally Once Active a day Ferrous Sulfate 325 (65 Fe) 1 tablet Orally BID Active MG for 90 days NovoLog Mix 70/30 Flexpen INJECT 70 UNITS Not-Taking (70-30) 100 UNIT/ML UNDER THE SKIN EVERY MORNING WITH BREAKFAST AND 40 UNITS EVERY EVENING WITH DINNER. for 27 Estradiol 0.1 MG/GM 1/2 gm Vaginal as Not-Taking directed for 90 days Diazepam 5 MG 1 tablet at bedtime No t-Taking Orally Once a day Omeprazole 40 MG 1 capsule Orally No t-Taking Once a day for 90 Breo Ellipta 200-25 MCG/INH 1 puff Inhalation Not-Taking Once a day for 30 Losartan Potassium 100 1 tablet Orally Once Not-Taking a day for 30 Promethazine HCl 25 MG 1 tablet as needed Active TOPICAL Once a day PROCEDURES No Information RESULTS No Results REASON FOR VISIT 3 [facility] f/u [facility] MEDICAL (GENERAL) HISTORY Type Description Date Medical [...] Medical History Dizziness and giddiness 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 mellitus with diabetic Continue current chronic kidney disease regimen. Education (ICD-10 - E11.22) given. Apr, Chronic obstructive Education given. pulmonary disease, Start Broe. Side unspecified COPD type effect discussed. (ICD-10 - J44.9) Apr, Screening mammogram, encounter for (ICD-10 - Z12.31) Apr, Current moderate Managed by . episode of major As, patient is on depressive disorder Opiods, I will not without prior episode prescribe BENZO, -- (ICD-10 - F32.1) Anxiety Education: Anxiety is a feeling of anxiousness or nervousness. Being extremely anxious or worried on most days for 6 months or longer is not normal. This is a type of anxiety disorder. This disorder can make it hard to do everyday tasks. Other types of anxiety include: post traumatic stress disorder, panic disorder, and phobias. Symptoms of anxiety may include: feeling worried or on the edge, trouble sleeping, or forgetting things. Feelings of stomach aches or chest tightness is another common symptom. Medicine, exercise, and other treatments like counseling, talk therapy, yoga, and massages maybe necessary to treat this disorder. Apr, Cirrhosis of liver Managed by GI. (ICD-10 - K74.60) Apr, Iron deficiency anemia encouragd on due to chronic blood compliance. loss (ICD-10 - D50.0) Asymptomatic. Instructed to take ferrous supplements BID. Instructed to make appt with GI for further evaluation. Apr, GERD without Refill given. SIde esophagitis (ICD-10 - effect discussed. K21.9) Make dietary changes. Apr, Cervical disc disorder Unable to be on at C4-C5 level with Opioids due to radiculopathy (ICD-10 being on Benzo. - M50.121) Education given. Managed by PNM. Apr, Traumatic ecchymosis Managed by of left lower leg, orthopedic. subsequent encounter REVIEWED ultrasound (ICD-10 - S80.12XD) of arterial and venous for reassurance. Education given. Discussed supportive measures for symptomatic relief. Fall preventions discussed. Apr, Hypertension (ICD-10 - Intermittent I10) controlled. Education given. Apr, History of fall within Fall precautions past 90 days (ICD-10 - given. Fall Z91.81) precautions given. Apr, Hypothyroidism (ICD-10 Compliant with - E03.9) medications. Apr, Hyperlipidemia, mixed Tolerating it well. (ICD-10 - E78.2) Stable. Compliant. Apr, Migraine without aura Discussed DDX. and without status Minimal relief with migrainosus, not OTC medications. intractable (ICD-10 - Referral to Neuro G43.009) for further evaluation. Keep YAO Diary. Apr, Chronic kidney Managed by Neprho. disease, stage 3 Previous Neprho: (ICD-10 - N18.3) Dr. Rendon. Referral to Dr. Frazier. Apr, Non-compliant behavior Patient has many (ICD-10 - R46.89) difficulties with obtaining proper standard of care: Financial difficulties, transportation issues, non-compliant with appointments and medications, minimal family support. Apr, Hypomagnesemia (ICD-10 Increased to TID. - E83.42) Patient agreeable. Apr, Decreased hearing of Referred to both ears (ICD-10 - Collar Stitcher. H91.93) Apr, residential (current) use of insulin (ICD-10 - Z79.4) Apr, Generalized anxiety disorder (ICD-10 - F41.1) Apr, Left leg pain (ICD-10 Doing well overall. - M79.605) Apr, Thrombocytopenia Asymptoamtic. (ICD-10 - D69.6) Instructed to take ASA every other day. Will monitor. If worsened, will refer. Apr, Abdominal hernia Referral to general without obstruction surgeon for further and without gangrene, evaluation recurrence not management. specified, unspecified hernia type (ICD-10 - K46.9) Apr, Other -- Medication reviewed and updated. -- Dietary and Lifestyle modifications addressed regarding diet, exercise and weight managemen t. -- Treatment options, risks and benefits, side effects reviewed in detail. -- Advised on signs/symptoms to monitor and when to call clinic and/or visit the nearest ER. Patient verbalized understanding and agreeable with plan. PLAN OF TREATMENT Medication Medication Name Sig Start Date Stop Date Ferrous Sulfate 325 (65 Fe) MG 1 tablet Orally BID for 90 days Omeprazole 40 MG 1 capsule Orally Once a day for 90 days Pravastatin Sodium 40 MG 1 tablet Orally Once a day Magnesium Oxide 400 MG 1 tablet as needed Orally Three times a day for 30 Breo Ellipta 200-25 MCG/INH 1 puff Inhalation Once a day for 30 days Amlodipine Besylate 10 MG 1 tablet Orally Once a day for 90 days Metoprolol Succinate ER 50 MG 1 tablet Orally Once a day for 90 days Levothyroxine Sodium 137 MCG 1 tablet on an empty stomach in the morning Orally Once a day for 90 days Furosemide 20 MG 1 tablet Orally Once a day for 90 days Cozaar 100 MG 1 tablet Orally Once a day for 90 days NovoFine 32G X 6 MM as directed SB Twice a day for 90 days OneTouch Ultra Test - TEST THREE TIMES DAILY for 90 days NovoLog Mix 70/30 Flexpen (70-30) INJECT 70 UNITS UNDER THE SKIN 100 UNIT/ML EVERY MORNING WITH BREAKFAST AND 40 UNITS EVERY EVENING WITH DINNER Subcutaneous Twice a day for 90 days Meclizine HCl 25 MG 1 tablet as needed Orally Once a day PRN Dizziness for 30 day(s) Treatment Notes Assessment Notes Clinical Notes Chronic kidney disease, stage 3 Managed by Neprho. Previous Neprho: Dr. Rendon. Referral to Dr. Frazier. Type 2 diabetes mellitus with Doing well. Continue current diabetic chronic kidney disease regimen. Education given. Migraine without aura and without Discussed DDX. Minimal rel ief with status migrainosus, not intractable OTC medications. Referra l to Neuro for further evaluation. Keep YAO Diary. Chronic obstructive pulmonary Education given. Start Broe. S rebekah disease, unspecified COPD type effect discussed. Hypomagnesemia Increased to TID. Patient agreeable. Current moderate episode of major Managed by . As, efren smallwood is depressive disorder without prior on Opiods, I will not pres cribe episode BENZO, -- Anxiety Education: Anxiety is a feeling of anxiousness or nervousness. Being extremely anxious or worried on most days for 6 months or longer is not normal. This is a type of anxiety disorder. This disorder can make it hard to do everyday tasks. Other types of anxiety include: post traumatic stress disorder, panic disorder, and phobias. Symptoms of anxiety may include: feeling worried or on the edge, trouble sleeping, or forgetting things. Feelings of stomach aches or chest tightness is another common symptom. Medicine, exercise, and other treatments like counseling, talk therapy, yoga, and massages maybe necessary to treat this disorder. Non-compliant behavior Patient has many difficulties with obtaining proper standard of care: Financial difficulties, transportation issues, non-compliant with appointments and medications, minimal family support. Cirrhosis of liver Managed by GI. Left leg pain Doing well overall. Iron deficiency anemia due to encouragd on compliance. chronic blood loss Asymptomatic. Instructed to take ferrous supplements BID. Instructed to make appt with GI for further evaluation. Decreased hearing of both ears Referred to Collar Stitcher. GERD without esophagitis Refill given. SIde effect discussed. Make dietary changes. Abdominal hernia without obstruction Referral to general nikko geon for and without gangrene, recurrence not further evaluation linnette villatoro. specified, unspecified hernia type Cervical disc disorder at C4-C5 Unable to be on Opioids due to level with radiculopathy being on Benzo. Education given. Managed by PNM. Thrombocytopenia Asymptoamtic. Instructed to take ASA every other day. Will monitor. If worsened, will refer. Hyperlipidemia, mixed Tolerating it well. Stable. Compliant. Hypothyroidism Compliant with medications. Traumatic ecchymosis of left lower Managed by orthopedic. Prachi ROSA leg, subsequent encounter ultrasound of arterial and venous for reassurance. Education given. Discussed supportive measures for symptomatic relief. Fall preventions discussed. Hypertension Intermittent controlled. Education given. History of fall within past 90 days Fall precautions given. Fall precautions given. Treatment Notes Test Name Order Date Lipid Panel With LDL/HDL Ratio 2020-05-03 Thyroid Panel With TSH 2020-05-03 Ferritin, Serum 2020-05-03 Microalbumin/Creat Ratio, Random Ur 2020-05-03 Hematopath Consultation, Smear 2020-05-03 Hemoglobin A1c 2020-05-03 Magnesium, Serum 2020-05-03 Comp. Metabolic Panel (14) (CMP) 2020-05-03 CBC With Differential/Platelet 2020-05-03 SCREENING MAMMOGRAM 2020-05-03 Next Appt Details 3 Months + Labs 1 week before Reason: Provider Name:Yung Eric, 2020-07-26 1 0:00:00 AM, [address], [place], [address], Provider Name:Yung Reyes, 2020-08-02 1 0:10:00 AM, [address], [address], [place], [address], Insurance Providers Payer Name Payer Payer Insured Name Patient Coverage Covera ge End Address Phone Relationship to Start Date Fabiano e Insured [employer] [phone] Galdamez De self 2005 MEDICARE [id number] [id number] [facility] [address]
--- OUTSIDE RECORDS SUMMARY | 2020-06-27 07:17 | XMS REPORT | Summary of Care ---
:1940 Author Organization [facility] Address [address] [place] [id number] Care Team Providers Name Role Phone Yung Reyes Primary Care Provider Reason for Visit Reason Comments Refill Request Encounter Details Date Type Department Care Team Description 05/04/2020 Refill [facility]opaedic Álvaro Lovell, PAC Refill Request Surgery- [facility] [address] [facility] [address] [facility], [place] [address] [address] [place] [address] [phone] Allergies Active Allergy Reactions Severity Noted Date Comments Ciprofloxacin Other - See comments 08/05/2015 Dye Other - See comments 08/05/2015 Penicillins Other - See comments 08/05/2015 Sulfa (Sulfonamide Antibiotics) Other - See comments 0 08/05/2015 documented as of this encounter (statuses as of 05/05/2020) Medications Medication Sig Dispensed Refills Start Date [...] EC TAKE 1 TABLET 60 tablet 0 05/05/2020 Active tabletIndications: BY MOUTH Pain in both knees, TWICE DAILY unspecified WITH MEALS chronicity DICLOFENAC 75 mg EC TAKE 1 TABLET 60 tablet 0 04/05/202005/05 Discontinued tabletIndications: BY MOUTH Pain in both knees, TWICE DAILY unspecified WITH MEALS chronicity documented as of this encounter (statuses as of 05/05/2020) Active Problems No known active problemsdocumented as of this encounter (statuses as of 05/05/2020) Social History Tobacco Use Types Packs/Day Years Used Date Never Smoker Alcohol Use Drinks/Week oz/Week Comments Not Asked 0 Standard drinks or equivalent 0.0 Sex Assigned at Date Recorded Not on file documented as of this encounter Last Filed Vital Signs Not on filedocumented in this encounter Plan of Treatment Health Maintenance Due Date Last Done Comments DTaP,Tdap,and Td Vaccines (1 - Tdap) 1961 Zoster Recombinant Vaccine (SHINGRIX) (1 of 2) 1992 Medicare Wellness Visit 12/22/2007 Osteoporosis Screening 12/22/2007 PNEUMOCOCCAL VACCINES 65+ (1 of - PPSV23) 12/22/2007 INFLUENZA VACCINE (#1) 2020 Depression Screening 03/09/2021 03/09/2020 documented as of this encounter Results Not on filedocumented in this encounter Visit Diagnoses Diagnosis Pain in both knees, unspecified chronici ty documented in this encounter Insurance Payer Benefit Plan Subscriber ID Effective Phone Address Typ e / Group Dates [employer] - [employer] [id number] 2019-Prese [address] Medic are Adv [place]NA[place] [id number] [place] [address] documented as of this encounter
== END ==
LOC: OR 07:12
PROVIDERS: ATTEND Surgery
DX: K43.9 Ventral hernia without obstruction or gangrene (principal); Z53.8 Procedure and treatment not carried out for other reasons

== ENCOUNTER 2020-11-09 14:14 | Inpatient (IN) | payer OTHER ==
--- OUTSIDE RECORDS SUMMARY | 2020-11-09 14:17 | XMS REPORT | Continuity of Care Document ---
:1940 Author Organization [facility] t Address [address] [place] [address] Care Team Providers Name Role Phone Julio Cesar Jennings Attending Clinician Doctor Unassigned, Name Attending Clinician Unavailable Can GUTIERREZ L Attending Clinician Problems This patient has no known problems. Allergies, Adverse Reactions, Alerts Allergy Allergy Status Severity Reaction(s) Onset Inactive Treating Comm ents Source Name Type Date Date Clinician penicill Adverse Active Info Not [facility] Available [facility] Macrodan Adverse Active Info Not [facility] tin Reaction Available [facility] Cipro Adverse Active Info Not [facility] Reaction Available [facility]ics Bactrim Adverse Active Info Not [facility] DS Reaction Available [facility] ent Clinics Medications Ordered Filled Start Stop Current Ordering Indication Dosage Frequency Signature Comments Components Source Medication Medication Date Date Medication? Clinician (SIG) Name Name Mary Hernandez Yes Yung 1 tablet [facility]ics Procedures This patient has no known procedures. Encounters Start End Encounter Admission Attending Care Care Encounter Source Date/Time Date/Time Type Type Clinicians Facility Department ID 2020-11-02 2020-11-02 Outpatient [id number] 2020-10-31 2020-10-31 Out[facility] [id number] [facility] 2020-10-31 2020-10-31 Out[facility] [id number] [facility] 2020-10-28 2020-10-28 Outpatient [facility] [id number] [facility] 2020-10-25 2020-10-25 Outpatient [facility] [id number] [facility] 2020-09-13 2020-09-13 Outpatient [facility] [id number] [facility] 2020-09-13 2020-09-13 Out[facility] [id number] [facility] 2020-08-31 2020-08-31 Outpatient [facility] [id number] [facility] 2020-08-26 2020-08-26 Outpatient [facility] [id number] [facility] 2020-08-19 2020-08-19 Outpatient [facility] [id number] [facility] 2020-08-15 2020-08-15 Outpatient [facility] [id number] [facility] 2020-08-12 2020-08-12 Outpatient [facility] [id number] [facility] 2020-08-10 2020-08-10 [facility] [id number] [facility] 2020-08-04 2020-08-04 Out[facility] [id number] [facility] 2020-08-01 2020-08-01 [facility] [id number] [facility] 2020-07-21 2020-07-21 [facility] [id number] [facility] 2020-07-20 2020-07-20 [facility] [id number] [facility] 2020-07-18 2020-07-18 Out[facility] [id number] [facility] 2020-07-08 2020-07-08 [facility] [id number] [facility] 2020-05-04 2020-05-04 LOIS Tuttle [id number] 00:00:00 00:00:00 [facility] [id number] [facility] [id number] Specialti [id number] [address] 2020-05-03 2020-05-03 [facility] [id number] [facility] 2020-04-08 2020-04-08 Out[facility] [id number] [facility] 2020-04-06 2020-04-06 Partha AGUILA [id number] 00:00:00 00:00:00 Only Unassigned, RANDOLPH [id number] [facility] [id number] 2020-04-05 2020-04-05 [facility] [id number] 00:00:00 00:00:00 [facility] [id number] Surgical [id number] Specialti [id number] es [address] 2020-04-04 2020-04-04 Out[facility] [id number] [facility]00 [facility] l Outpati ent Clinics 2020-03-24 2020-03-24 Orders Doctor AGUILA [id number] 00:00:00 00:00:00 Only Unassigned, RANDOLPH [id number] [facility] [place] [id number] 2020-03-14 2020-03-14 [facility] [id number] 00:00:00 00:00:00 Navi Ngo [facility] [id number] Surgical [id number] Specialti [id number] es [address] 2020-03-09 2020-03-09 [facility] [id number] 13:35:04 23:59:00 Encounter Navi Thomas [id number] [facility] [id number] [place] [id number] 2020-03-09 2020-03-09 Office [facility] [id number] 13:56:50 14:25:04 Visit Navi Ngo [facility] [id number] Surgical [id number] Specialti [id number] es [address] 2020-03-07 2020-03-07 Outpatient [facility] [id number] [facility]00 [facility] l Outpati ent Clinics 2020-03-04 2020-03-04 Outpatient [facility] [id number] [facility] 2020-03-01 2020-03-01 Out[facility] [id number] [facility] 2020-02-19 2020-02-19 Outpatient [facility] [id number] [facility] 2020-02-18 2020-02-18 Outpatient [facility] [id number] [facility] 2020-02-11 2020-02-11 Out[facility] [id number] [facility] 2020-02-05 2020-02-05 [facility] [id number] [facility] 09:53:00 09:53:00 t Stuart [employer] - Drive [facility] Medicine l Medicine Outpati ent Clinics 2020-02-04 2020-02-04 [facility] [id number] [facility] 10:45:00 10:45:00 t Stuart [employer] s - Drive [facility] Medicine l Medicine Outpati ent Clinics 2020-02-02 2020-02-02 [facility] [id number] [facility] 10:40:00 10:40:00 t Stuart [employer] s - Drive [facility] Family Medicine l Medicine Outpati ent Clinics 2020-01-22 2020-01-22 [facility] [id number] [facility] 09[facility]57:00 09:57:00 t Stuart [employer] s - Drive [facility] Family Medicine l Medicine Outpati ent Clinics 2020-01-20 2020-01-20 [facility] [id number] [address] 11:35:00 11:35:00 t Stuart [employer] s - Drive [facility] Medicine l Medicine Outpati ent Clinics 2020-01-01 2020-01-01 [facility] [id number] [facility] 08:45:00 08:45:00 t Stuart [employer] s - Drive [facility] Medicine l Medicine Outpati ent Clinics 2019-12-14 2019-12-14 [facility] [id number] [facility] 13:15:00 13:15:00 t Specialty/U Fide kes - Specialty rology Memori a /Urology Clinic l Clinic Outpati ent Clinics 2019-12-14 2019-12-14 [facility] [id number] [facility] 09:00:00 09:00:00 t Stuart [employer] s - Drive [facility] Medicine l Medicine Outpati ent Clinics 2019-11-27 2019-11-27 [facility] [id number] 15:47:00 15:47:00 t Climateminder s - [email or web address] [facility] Medicine l Medicine Outpati ent Clinics 2019-11-05 2019-11-05 [facility] [id number] 16:14:00 16:14:00 t Climateminder s [employer] [facility] Medicine l Medicine Outpati ent Clinics 2019-10-14 2019-10-14 [facility] [id number] 10:30:00 10:30:00 t Specialty/U Fide kes - Specialty rology Memori a /Urology Clinic l Clinic Outpati ent Clinics 2019-10-02 2019-10-02 [facility] [id number] 10:04:00 10:04:00 t Climateminder s - [email or web address] [facility] Medicine l Medicine Outpati ent Clinics 2019-10-02 2019-10-02 [facility] [id number] [facility] 10:00:00 10:00:00 t Climateminder s [employer] [facility] Medicine l Medicine Outpati ent Clinics 2019-10-02 2019-10-02 [facility] [id number] [facility] 09:15:00 09:15:00 t Climateminder s [place] [facility] l Medicine Outpati ent Clinics 2019-09-04 2019-09-04 [facility] [id number] 10:51:00 10:51:00 t Climateminder s [place] [facility] l Medicine Outpati ent Clinics 2019-07-16 2019-07-16 [facility] [id number] [facility] 13:32:00 13:32:00 t [employer] s - Drive [facility] Medicine l Medicine Outpati ent Clinics 2019-07-15 2019-07-15 [facility] [id number] 09:30:00 09:30:00 t Specialty/U Fide kes - Specialty rology Memori a /Urology Clinic l Clinic Outpati ent Clinics 2019-07-08 2019-07-08 [facility] [id number] 16:44:00 16:44:00 t Stuart [employer] s - Drive [facility] Medicine l Medicine Outpati ent Clinics 2019-07-02 2019-07-02 [facility] [id number] [facility] 09:30:00 09:30:00 t Stuart [employer] s - Drive [facility] Medicine Outpati ent Clinics 2019-06-25 2019-06-25 [facility] [id number] [facility] 09:30:00 09:30:00 t Specialty/U Fide kes - Specialty rology Memori a /Urology Clinic l Clinic Outpati ent Clinics 2019-06-16 2019-06-16 [facility] [id number] [facility] 14:49:00 14:49:00 t Stuart [employer] - [email or web address] [facility] Medicine Outpati ent Clinics 2019-04-21 2019-04-21 [facility] [id number] 16:37:00 16:37:00 t Climateminder s - [email or web address] [facility] l Medicine Outpati ent Clinics 2019-04-03 2019-04-03 [facility] [id number] [facility] 10:18:00 10:18:00 t Stuart [employer] - [email or web address] [facility] Medicine Outpati ent Clinics 2019-04-01 2019-04-01 [facility] [id number] [facility] 09:45:00 09:45:00 t Stuart [employer] s - Drive [facility] l Medicine Outpati ent Clinics 2019-02-19 2019-02-19 [facility] [id number] [facility] 14:34:00 14:34:00 t Stuart [employer] s - Drive [facility] Medicine Outpati ent Clinics 2019-02-18 2019-02-18 [facility] [id number] [facility] 08:03:00 08:03:[address] Luke s - Drive [facility] Family Medicine l Medicine Outpati ent Clinics 2019-02-17 2019-02-17 [facility] [id number] [facility] 08:36:00 08:36:[address] Luke s - Drive [facility] Family Medicine l Medicine Outpati ent Clinics 2019-02-17 2019-02-17 [facility] [id number] [facility] 08:30:00 08:30:[address] Luke s - Drive [facility] Family Medicine l Medicine Outpati ent Clinics 2019-02-12 2019-02-12 [facility] [id number] [address] 14:02:00 14:02:[address] Luke s - Drive [facility] Family Medicine l Medicine Outpati ent Clinics 2019-01-29 2019-01-29 [facility] [id number] 15:37:00 15:37:[address] Luke s - Drive [facility] Medicine l Medicine Outpati ent Clinics 2018-12-17 2018-12-17 [facility] [id number] [facility] 15:00:00 15:00:[address] Luke s - Drive [facility] Medicine l Medicine Outpati ent Clinics 2018-12-11 2018-12-11 [facility] [id number] 08:15:00 08:15:[address] Luke s - Drive [facility] Medicine l Medicine Outpati ent Clinics 2018-12-10 2018-12-10 [facility] [id number] [facility] 13:26:00 13:26:[address] Luke s - Drive [facility] Medicine l Medicine Outpati ent Clinics 2018-12-10 2018-12-10 [facility] [id number] [facility] 11:15:00 11:15:[address] Luke s - Drive [facility] Medicine l Medicine Outpati ent Clinics 2018-11-25 2018-11-25 [facility] [id number] [facility] 09:51:00 09:51:[address] Luke s - Drive [facility] Medicine Outpati ent Clinics 2018-11-12 2018-11-12 [facility] [id number] 16:03:00 16:03:00 t Stuart Stuart [email or web address] Luke s - Drive [facility] Medicine Outpati ent Clinics 2018-09-30 2018-09-30 [facility] [id number] 10:20:00 10:20:00 t Stuart Stuart [email or web address] s - Drive [facility] Medicine Outpati ent Clinics 2018-09-25 2018-09-25 [facility] [id number] 09:30:00 09:30:00 t Stuart Stuart [email or web address] s - Drive [facility] Medicine Outpati ent Clinics 2018-09-22 2018-09-22 [facility] [id number] 12:14:00 12:14:00 t Stuart Stuart [email or web address] s - Drive [facility] Medicine Outpati ent Clinics 2018-09-10 2018-09-10 [facility] [id number] 11:30:00 11:30:00 t Stuart Stuart [employer] s - Drive [facility] Medicine Outpati ent Clinics 2018-08-26 2018-08-26 [facility] [id number] [facility] 08:30:00 08:30:00 t Stuart Stuart [employer] s - Drive [facility] Medicine Outpati ent Clinics 2018-08-20 2018-08-20 [facility] [id number] [facility] 14:30:00 14:30:00 t Stuart Stuart [employer] s - Drive [facility] Medicine Outpati ent Clinics 2018-08-19 2018-08-19 [facility] [id number] 12:42:00 12:42:00 t Bone Bone and [facility] - [facility] ent Clinics 2018-08-07 2018-08-07 [facility] [id number] 08:53:00 08:53:00 t Stuart Stuart [employer] s - Drive [facility] Medicine Outpati ent Clinics 2018-08-01 2018-08-01 [facility] [id number] [facility] 11:15:00 11:15:00 t [facility]ens [facility] ent Clinics 2018-07-25 2018-07-25 [facility] [id number] [facility] 10:45:00 10:45:[address] Luke s - Drive [facility] Outpati ent Clinics 2018-07-23 2018-07-23 [facility] [id number] 09:00:00 09:00:00 t [facility] - [facility] ent Clinics 2018-07-09 2018-07-09 [facility] [id number] 14:55:00 14:55:00 t [facility] and [facility] - [facility] ent Clinics 2018-07-04 2018-07-04 [facility] [id number] [facility] 14:54:00 14:54:[address] Luke s - Drive [facility] Outpati ent Clinics 2018-06-10 2018-06-10 [facility] [id number] 13:30:00 13:30:[address] Luke s - Drive [facility] Outpati ent Clinics 2018-05-28 2018-05-28 [facility] [id number] 11:17:00 11:17:[address] Luke s - Drive [facility] Medicine Outpati ent Clinics 2018-05-27 2018-05-27 [facility] [id number] 10:45:00 10:45:[address] Luke s - Drive [facility] Medicine Outpati ent Clinics 2018-05-27 2018-05-27 [facility] [id number] 09:58:00 09:58:[address] Luke s - Drive [facility] Medicine Outpati ent Clinics 2018-05-23 2018-05-23 [facility] [id number] 15:20:00 15:20:[address] Luke s - Drive [facility] l Medicine Outpati ent Clinics 2018-05-15 2018-05-15 [facility] [id number] 12:06:00 12:06:[address] Luke s - Drive [facility] Medicine l Medicine Outpati ent Clinics 2018-04-29 2018-04-29 [facility] [id number] [facility] 14:06:00 14:06:[address] Luke s - Drive [facility] Medicine l Medicine Outpati ent Clinics 2018-02-25 2018-02-25 [facility] [id number] 08:31:00 08:31:[address] Luke s - Drive [facility] Medicine l Medicine Outpati ent Clinics 2018-02-24 2018-02-24 [facility] [id number] [facility] 09:30:00 09:30:[address] Luke s - Drive [facility] Medicine l Medicine Outpati ent Clinics 2018-01-30 2018-01-30 [facility] [id number] 11:22:00 11:22:[address] Luke s - Drive [facility] Medicine l Medicine Outpati ent Clinics 2018-01-27 2018-01-27 [facility] [id number] [facility] 09:16:00 09:16:[address] Luke s - Drive [facility] Medicine l Medicine Outpati ent Clinics 2018-01-15 2018-01-15 [facility] [id number] 13:10:00 13:10:[address] Luke s - Drive [facility] Medicine l Medicine Outpati ent Clinics 2018-01-13 2018-01-13 [facility] [id number] [facility] 14:29:00 14:29:[address] Luke s - Drive [facility] Medicine l Medicine Outpati ent Clinics 2018-01-08 2018-01-08 [facility] [id number] [facility] 09:00:00 09:00:[address] Luke s - Drive [facility] Medicine l Medicine Outpati ent Clinics 2017-12-19 2017-12-19 [facility] [id number] [facility] 10:30:00 10:30:[address] Luke s - Drive [facility] Medicine Outpati ent Clinics 2017-12-16 2017-12-16 [facility] [id number] [facility] 08:45:00 08:45:00 t [facility] Medicine Outpati ent Clinics 2017-09-16 2017-09-16 [facility] [id number] 14:47:00 14:47:00 t [facility] Medicine Outpati ent Clinics 2017-09-16 2017-09-16 [facility] [id number] 10:00:00 10:00:00 t [facility] Medicine Outpati ent Clinics 2017-08-13 2017-08-13 [facility] [id number] 09:30:00 09:30:00 t [facility] Medicine Outpati ent Clinics Results This patient has no known results.
--- NOTE | 2020-11-09 15:14 | P.HP ---
Certification for Inpatient Patient admitted to: Observation With expected LOS: <2 Midnights Practitioner: I am a practitioner with admitting privileges, knowledge of patient current condition, hospital course, and medical plan of care. Services: Services provided to patient in accordance with Admission requirements found in Title 42 Section 412.3 of the Code of Federal Regulations Patient History Date of Service: 11/09/20 Reason for admission: intractable abdominal pain, ventral hernia History of Present Illness: 79yo F, PMH: ventral hernia, insulin dependent DM2, HTN, GERD, Anxiety Sent to ED by Dr. Wade from his office due to severe, progressively worsening abdominal pain over the past few days. Patient reports severe pain at hernia site, worsened with any movement that increases abdominal pressure. She had a normal BM this morning. Denies SOB, chest pain, vomiting. Son is at bedside, states patient was hardly able to move, pain would "bring her to her knees". She reports high blood pressure this morning at the office and took her medication. She has a known ventral hernia and was to undergo repair a few months ago but patient refused on day of surgery due to anxiety. In the ED, bloodwork revealed: hypokalemia, no leukocytosis. CT abd/pelvis: 8cm ventral hernia with 2cm neck, with fluid and fat stranding Patient is admitted for pain management and to undergo ventral hernia repair with Dr. Wade tomorrow. Allergies ciprofloxacin [From Cipro] Allergy (Verified 06/23/20 09:44) Hives gentamicin Allergy (Verified 06/23/20 09:45) Hives Iodinated Contrast Media Allergy (Verified 06/23/20 09:22) Hives nitrofurantoin Allergy (Verified 06/23/20 09:44) Hives Sulfa (Sulfonamide Antibiotics) Allergy (Verified 06/23/20 09:45) Hives Home Medications: Amlodipine [Norvasc] 10 mg PO DAILY 06/23/20 Aspirin Chewable [Aspirin Chewable*] 81 mg PO DAILY 06/23/20 Diazepam [Valium] 5 mg PO DAILY 06/23/20 Dicyclomine HCl 20 mg PO DAILY 06/23/20 Furosemide [Lasix] 20 mg PO DAILY 06/23/20 Hydrocodone Bit/Acetaminophen [Hydrocodon-Acetaminophen 5-325] 1 each PO Q6HR 06/23/20 Insulin Aspart [Novolog Flexpen] 100 unit SQ TID 06/23/20 Levothyroxine [Synthroid] 125 mcg PO [id number] 06/23/20 Losartan Potassium [Cozaar] 100 mg PO DAILY 06/23/20 Meclizine HCl 25 mg PO DAILY 06/23/20 Metoprolol Succinate [Toprol Xl] 50 mg PO DAILY 06/23/20 Omeprazole [Prilosec] 40 mg PO DAILY 06/23/20 Pravastatin Sodium 40 mg PO DAILY 06/23/20 Promethazine Tab [Phenergan] 12.5 mg PO Q6HP PRN 06/23/20 - Past Medical/Surgical History -: DM2, insulin dependent -: Hypertension -: b/l lower extremity edema -: chronic pain -: hypothyroidism -: anxiety -: prior ventral hernia repair - Family History Family History: Reviewed- Non-Contributory (patient unsure) - Social History Smoking Status: Never smoker Alcohol use: No Place of Residence: Home Review of Systems 10-point ROS is otherwise unremarkable Physical Examination - Physical Exam General: Alert, Oriented x3, Mild distress HEENT: PERRLA, EOMI, Sclerae nonicteric Neck: Supple Respiratory: Clear to auscultation bilaterally, Normal air movement Cardiovascular: No edema, Regular rate/rhythm, Normal S1 S2 Gastrointestinal: Soft and benign, Non-distended, Tenderness (periumbilical, too severe/sensitive to evaluate incarceration or not) Musculoskeletal: No erythema, No tenderness Integumentary: No rashes, No breakdown Neurological: Normal speech, Normal strength at 5/5 x4 extr, Normal affect Assessment and Plan - Advance Directives Does patient have a Living Will: No Does patient have a Durable POA for Healthcare: No Physician Review Additional Text: Problem List Abdominal pain due to ventral hernia DM2, insulin dependent HTN Anxiety chronic pain -does not appear septic at this time -NPO, gentle IVF -pain control -obtain/confirm home medications, restart as appropriate. patient unsure of exact insulin 70/30 dosing -insulin sliding scale / accucheks -Dr. Wade consulted Dispo: anticipate dc home in 24-48hrs Time Spent Managing Pts Care (In Minutes): 60
[2020-11-09 15:24] LABS: Basophils % 0.8 % (0-1.3); Hematocrit 38.1 % (36.0-45.0); Lymphocytes % 15.5 % (15.3-44.8); MPV 11.5 fL (7.6-11.3); RBC Red Blood Cell Count 4.14 M/uL (3.86-4.86)
--- NOTE | 2020-11-09 15:44 | RAD REPORT ---
EXAM DESCRIPTION: CT - Abdomen Pelvis Wo Contrast - 11/09/2020 3:19 pm CLINICAL HISTORY: Abdominal pain COMPARISON: None TECHNIQUE: Computed axial tomography of the abdomen and pelvis was obtained. IV and oral contrast we re not requested. All CT scans are performed using dose optimization technique as appropriate and may include automated exposure control or mA/KV adjustment according to patient size. FINDINGS: The evaluation of solid organs, vessels and bowel is limited secondary to the lack of con trast administration. Cirrhotic liver. Mild splenomegaly. The pancreas, adrenals and kidneys appear grossly normal. A ventral hernia within the abdomen midline has a neck 2 centimeters. The herniated sac measures 8 ce ntimeters and contains small amount of fluid and stranding within the fat. An umbilical hernia has a neck of 1.6 centimeters. Herniated sac measures 4.3 centimeters and contain s fluid 4.2 centimeter cystic left adnexal mass. 1.8 centimeter subserosal calcified uterine fibroid. Small amount of ascites. Stranding is present within fat of the omentum and peritoneum Small inguinal hernias contain fat IMPRESSION: Cirrhosis Umbilical hernia Ventral hernia 4.3 centimeter cystic left adnexal mass. Nonemergent ultrasound recommended for further evaluation
[2020-11-09 15:47] LABS: Potassium 3.3 mmol/L (3.5-5.1)
[2020-11-09 15:48] LABS: Protime INR 1.04
--- NOTE | 2020-11-09 16:01 | EDPHYS ---
Physician Documentation [facility] Name: Britany Ash Age: 79 yrs Sex: Female : 1940 Arrival Date: 11/09/2020 Time: 14:17 Bed 19 Private MD: ED Physician Otoniel Navas HPI: 11/09 14:38 This 79 yrs old Female presents to ER via EMS with complaints of abdominal rn pain. 14:38 The patient presents with abdominal pain in the periumbilical area. Onset: The rn symptoms/episode began/occurred 3 day(s) ago. The symptoms do not radiate. Associated signs and symptoms: Pertinent positives: constipation, nausea, Pertinent negatives: blood in stools, fever, shortness of breath, vomiting blood. The symptoms are described as crampy, intermittent, sharp. Modifying factors: The symptoms are alleviated by nothing, the symptoms are aggravated by touching the area. 14:43 Severity of pain: At its worst the pain was moderate in the emergency department the rn pain is unchanged. The patient has not experienced similar symptoms in the past. The patient has been recently seen by a physician:. Sent by Dr. Wade from clinic for suspected incarcerated umbilical hernia, was supposed to have surgery a few months ago but she declined, now having 3 days of umbilical pain, nausea, and feeling anxious. Reports having bowel movements. . Historical: - Allergies: 14:27 Iodinated Contrast Media - IV Dye; ph 14:27 Sulfa (Sulfonamide Antibiotics); ph 14:27 Nitrofurantoin; ph 14:27 Gentamicin; ph 14:27 Ciprofloxacin; ph - Home Meds: 15:12 Phenergan Oral 25 mg as needed [Active]; furosemide 20 mg Oral tab 1 tab once daily ph [Active]; diazepam 5 mg Oral tab [Active]; amlodipine 10 mg tab 1 tab once daily [Active]; paroxetine HCl 10 mg oral tab 1 tab once daily [Active]; levothyroxine 137 mcg tab 1 tab once daily [Active]; losartan 50 mg oral tab 1 tab once daily [Active]; omeprazole 40 mg Oral cpDR 1 cap once daily [Active]; pravastatin 40 mg oral tab 1 tab once daily [Active]; aspirin 81 mg Oral TbEC 1 tab once daily [Active]; Novolin 70/30 100 unit/mL (70-30) subcutaneous susp [Active]; - Immunization history:: Client reports having NOT received the Covid vaccine. - Family history:: not pertinent. - Social history:: Smoking status: Patient denies any tobacco usage or history of. - Hospitalizations: : No recent hospitalization is reported. ROS: 14:43 Constitutional: Negative for fever, chills, and weight loss, Eyes: Negative for injury, rn pain, redness, and discharge, Cardiovascular: Negative for chest pain, palpitations, and edema, Respiratory: Negative for shortness of breath, cough, wheezing, and pleuritic chest pain, Abdomen/GI: + abd pain/nausea/constipation Back: Negative for injury and pain, : Negative for injury, bleeding, discharge, and swelling, MS/Extremity: Negative for injury and deformity, Skin: Negative for injury, rash, and discoloration, Neuro: Negative for headache, weakness, numbness, tingling, and seizure. Exam: 14:43 Constitutional: This is a well developed, well nourished patient who is awake, alert, rn appears in pain Head/Face: Normocephalic, atraumatic. Eyes: Periorbital areas with no swelling, redness, or edema. Cardiovascular: Tachycardic, regular Respiratory: No increased work of breathing, no retractions or nasal flaring. Abdomen/GI: soft, + umbilical hernia with tenderness, + ventral hernia with mild tenderness. Skin: Warm, dry MS/ Extremity: Pulses equal, no cyanosis. Neuro: Awake and alert, GCS 15 Vital Signs: 14:18 BP 125 / 60; Pulse 132; Resp 18; Temp 97.2; Pulse Ox 95% on R/A; ph 15:30 BP 99 / 62; Pulse 150; Resp 20; Pulse Ox 97% on R/A; ph 16:30 BP 109 / 68; Pulse 128; Resp 20; Pulse Ox 98% on R/A; ph 17:30 BP 101 / 63; Pulse 111; Resp 18; Pulse Ox 98% on R/A; ph 18:11 BP 101 / 63; Pulse 101; Resp 19; Pulse Ox 92% on R/A; ph MDM: 14:17 Patient medically screened. rn 14:47 Differential diagnosis: bowel obstruction, incarcerated hernia, strangulated hernia. rn Data reviewed: vital signs, nurses notes, and as a result, I will admit patient. Counseling: I had a detailed discussion with the patient and/or guardian regarding: the historical points, exam findings, and any diagnostic results supporting the discharge/admit diagnosis, the need for further work-up and treatment in the hospital. 15:59 Admission orders: after a detailed discussion of the patient's condition and case, the materials intern orders are written by me. 16:38 ED course: Pt tachycardic, ecg obtained, shows possible afib with rvr. Will rate rn control and reeval. Pt and son deny hx of afib.. 11/09 14:18 Order name: CBC with Diff rn 11/09 14:18 Order name: Basic Metabolic Panel rn 11/09 14:18 Order name: Protime (+inr) rn 11/09 14:18 Order name: Ptt, Activated rn 11/09 15:31 Order name: CBC with Automated Diff; Complete Time: 15:44 EDCT 11/09 15:47 Order name: Basic Metabolic Panel; Complete Time: 15:59 EDCT 11/09 14:54 Order name: CT Abd/Pelvis - Without Contrast rn 11/09 15:45 Order name: CT; Complete Time: 15:59 EDCT 11/09 15:52 Order name: Protime (+INR); Complete Time: 15:59 EDCT 11/09 15:52 Order name: PTT, Activated Partial Thromb; Complete Time: 15:59 EDCT 11/09 15:57 Order name: COVID-19 : Document "Date of Symptom Onset" if Symptomatic. ss 11/09 17:02 Order name: [facility] 11/09 17:56 Order name: SARS-COV-2 RT PCR [facility] 11/09 14:18 Order name: IV Start; Complete Time: 16:07 rn 11/09 14:18 Order name: EKG; Complete Time: 14:18 rn 11/09 14:18 Order name: EKG - Nurse/Tech; Complete Time: 19:05 rn Administered Medications: 16:06 Drug: Zofran (Ondansetron) 4 mg Route: IVP; Site: left antecubital; ph 19:27 Follow up: Response: No adverse reaction; Nausea is decreased ph 16:06 Drug: NS 0.9% 500 ml Route: IV; Rate: bolus; Site: left antecubital; ph 17:00 Follow up: Response: No adverse reaction; IV Status: Completed infusion; IV Intake: ph 500ml 16:07 Drug: Demerol (meperidine) 25 mg Route: IVP; Site: left antecubital; ph 19:27 Follow up: Response: No adverse reaction; Pain is decreased ph 16:57 Drug: Metoprolol 25 mg Route: PO; ph 19:27 Follow up: Response: No adverse reaction ph 16:57 Drug: Ativan (LORazepam) 0.5 mg Route: IVP; Site: left antecubital; ph 19:26 Follow up: Response: No adverse reaction; Anxiety decreased ph Disposition: 11/09/20 16:01 Hospitalization ordered by Rah Navas for Inpatient Admission. Preliminary diagnosis are Incarcerated ventral hernia, Unspecified abdominal pain. - Bed requested for Telemetry/MedSurg (Inpatient). - Status is Inpatient Admission. ak2 - Condition is Stable. - Problem is new. - Symptoms have improved. Signatures: Dispatcher [employer] EDMS Otoniel Navas MD MD rn Attema, Lee, LINEMARKER-C LINEMARKER-Cla1 Ebonie Goodwin RN RN tl1 Yesi Lopez RN RN Temo Mejia ak2 Corrections: (The following items were deleted from the chart) 16:00 14:43 Constitutional: This is a well developed, well nourished patient who is awake, rn alert, appears in pain Head/Face: Normocephalic, atraumatic. Eyes: Periorbital areas with no swelling, redness, or edema. Cardiovascular: Tachycardic, regular Respiratory: No increased work of breathing, no retractions or nasal flaring. Abdomen/GI: soft, + umbilical hernia with tenderness Skin: Warm, dry MS/ Extremity: Pulses equal, no cyanosis. Neuro: Awake and alert, GCS 15 rn 19:18 16:01 Hospitalization Ordered by Rah Navas MD for Inpatient Admission. Preliminary tl1 diagnosis is Incarcerated ventral hernia; Unspecified abdominal pain. Bed requested for Telemetry/MedSurg (Inpatient). Status is Inpatient Admission. Condition is Stable. Problem is new. Symptoms have improved. rn 20:00 19:18 11/09/2020 16:01 Hospitalization Ordered by Rah Navas MD for Inpatient ak2 Admission. Preliminary diagnosis is Incarcerated ventral hernia; Unspecified abdominal pain. Bed requested for Telemetry/MedSurg (Inpatient). Status is Inpatient Admission. Condition is Stable. Problem is new. Symptoms have improved. tl1
--- NOTE | 2020-11-09 16:01 | ER ---
Nurse's Notes [facility] Name: Britany Ash Age: 79 yrs Sex: Female : 1940 Arrival Date: 11/09/2020 Time: 14:17 Bed 19 Private MD: Diagnosis: Incarcerated ventral hernia;Unspecified abdominal pain Presentation: 11/09 14:18 Chief complaint: EMS states: Sent from Dr's office for abdominal pain, has an abdominal ph hernia and will be getting surgery tomorrow per Dr Wade, IV to LAC, 30 mg Toradol and 4 mg Zofran given. Coronavirus screen: Client denies travel out of the [place] in the last 14 days. At this time, the client does not indicate any symptoms associated with coronavirus-19. Ebola Screen: No symptoms or risks identified at this time. 14:18 Method Of Arrival: EMS: [facility] 14:26 Initial Sepsis Screen: Does the patient meet any 2 criteria? HR > 90 bpm. Does the patient have a suspected source of infection? No. Patient's initial sepsis screen is negative. Risk Assessment: Do you want to hurt yourself or someone else? Patient reports no desire to harm self or others. Onset of symptoms was November 09, 2020. 14:26 Acuity: BEBE 2 ph Historical: - Allergies: 14:27 Iodinated Contrast Media - IV Dye; ph 14:27 Sulfa (Sulfonamide Antibiotics); ph 14:27 Nitrofurantoin; ph 14:27 Gentamicin; ph 14:27 Ciprofloxacin; ph - Home Meds: 15:12 Phenergan Oral 25 mg as needed [Active]; furosemide 20 mg Oral tab 1 tab once daily ph [Active]; diazepam 5 mg Oral tab [Active]; amlodipine 10 mg tab 1 tab once daily [Active]; paroxetine HCl 10 mg oral tab 1 tab once daily [Active]; levothyroxine 137 mcg tab 1 tab once daily [Active]; losartan 50 mg oral tab 1 tab once daily [Active]; omeprazole 40 mg Oral cpDR 1 cap once daily [Active]; pravastatin 40 mg oral tab 1 tab once daily [Active]; aspirin 81 mg Oral TbEC 1 tab once daily [Active]; Novolin 70/30 100 unit/mL (70-30) subcutaneous susp [Active]; - Immunization history:: Client reports having NOT received the Covid vaccine. - Family history:: not pertinent. - Social history:: Smoking status: Patient denies any tobacco usage or history of. - Hospitalizations: : No recent hospitalization is reported. Screenin:10 Abuse screen: Denies threats or abuse. Denies injuries from another. Nutritional ph screening: No deficits noted. Tuberculosis screening: No symptoms or risk factors identified. Fall Risk None identified. Assessment: 14:30 General: Appears in no apparent distress. uncomfortable, well groomed, Behavior is ph cooperative, appropriate for age, anxious, Denies fever. Pain: Complains of pain in umbilical area. Neuro: Level of Consciousness is awake, alert, obeys commands, Oriented to person, place, time, situation. Cardiovascular: Capillary refill < 3 seconds in bilateral fingers Patient's skin is warm and dry. Respiratory: Airway is patent Respiratory effort is even, unlabored, Respiratory pattern is regular, symmetrical. GI: Abdomen is round large hernia noted to L umbilical region. Derm: Skin is intact, Skin is pink, warm \T\ dry. Musculoskeletal: Circulation, motion, and sensation intact. Range of motion: intact in all extremities. 16:00 Reassessment: Patient appears in no apparent distress at this time. Patient and/or ph family updated on plan of care and expected duration. Pain level reassessed. Patient is alert, oriented x 3, equal unlabored respirations, skin warm/dry/pink. Pt assisted to bedside commode, denies pain at this time. 16:30 Reassessment: Patient appears in no apparent distress at this time. Patient and/or ph family updated on plan of care and expected duration. Pain level reassessed. Pt placed on male infertility specialist, rhythm noted to be atrial fib w/ RVR, rate 130s- 150s, 12 lead EKG obtained and given to ERP, verbal order received for PO metoprolol and Ativan IVP for anxiety, see MAR. 17:30 Reassessment: Patient appears in no apparent distress at this time. Patient and/or ph family updated on plan of care and expected duration. Pain level reassessed. Patient is alert, oriented x 3, equal unlabored respirations, skin warm/dry/pink. HR has slowed to 101-108, remains atrial fib, pt appears less anxious, other VSS. 18:30 Reassessment: Patient appears in no apparent distress at this time. Patient and/or ph family updated on plan of care and expected duration. Pain level reassessed. Pt resting quietly w/ eyes closed, respirations even and unlabored, son at bedside, HR improved to 80-95, remains irregular. 19:33 General: report called to rn. ak2 Vital Signs: 14:18 BP 125 / 60; Pulse 132; Resp 18; Temp 97.2; Pulse Ox 95% on R/A; ph 15:30 BP 99 / 62; Pulse 150; Resp 20; Pulse Ox 97% on R/A; ph 16:30 BP 109 / 68; Pulse 128; Resp 20; Pulse Ox 98% on R/A; ph 17:30 BP 101 / 63; Pulse 111; Resp 18; Pulse Ox 98% on R/A; ph 18:11 BP 101 / 63; Pulse 101; Resp 19; Pulse Ox 92% on R/A; ph ED Course: 14:17 Patient arrived in ED. rn 14:17 Otoniel Navas MD is Attending Physician. rn 14:17 Yesi Lopez, ISAI is Primary Nurse. ph 14:26 Triage completed. ph 14:26 Arm band placed on Patient placed in an exam room, on a stretcher, on pulse oximetry. ph 16:00 Rah Navas MD is Hospitalizing Provider. rn 18:11 Patient has correct armband on for positive identification. Bed in low position. Call ph light in reach. Side rails up X 1. chemist pharmaceutical on. Pulse ox on. NIBP on. 19:28 No provider procedures requiring assistance completed. ph 19:28 Maintain EMS IV. Dressing intact. Good blood return noted. Site clean \T\ dry. Gauge \T\ ph site: 20 LAC. IV is patent, with fluids infusing freely, with good blood return. 19:28 Patient admitted, IV remains in place. ph Administered Medications: 16:06 Drug: Zofran (Ondansetron) 4 mg Route: IVP; Site: left antecubital; ph 19:27 Follow up: Response: No adverse reaction; Nausea is decreased ph 16:06 Drug: NS 0.9% 500 ml Route: IV; Rate: bolus; Site: left antecubital; ph 17:00 Follow up: Response: No adverse reaction; IV Status: Completed infusion; IV Intake: ph 500ml 16:07 Drug: Demerol (meperidine) 25 mg Route: IVP; Site: left antecubital; ph 19:27 Follow up: Response: No adverse reaction; Pain is decreased ph 16:57 Drug: Metoprolol 25 mg Route: PO; ph 19:27 Follow up: Response: No adverse reaction ph 16:57 Drug: Ativan (LORazepam) 0.5 mg Route: IVP; Site: left antecubital; ph 19:26 Follow up: Response: No adverse reaction; Anxiety decreased ph Intake: 17:00 IV: 500ml; Total: 500ml. ph Outcome: 16:01 Decision to Hospitalize by Provider. rn 20:00 Admitted to Med/surg ak2 20:00 Condition: good 20:00 Patient left the ED. ak2 Signatures: Otoniel Navas MD MD rn Hall, Patricia, RN RN ph [place], Anthony ak2
[2020-11-09] MEDS ORDERED: ONDANSETRON 4 MG/2 ML VIAL ONE (16:22)
[2020-11-09] MEDS ORDERED: NA CHLORIDE 0.9% 500 ML ONE (16:23)
[2020-11-09] MEDS ORDERED: MEPERIDINE HCL 25 MG/ML SYR ONE (16:23)
[2020-11-09] MEDS ORDERED: METOPROLOL TAR 25 MG TAB ONE (17:04)
[2020-11-09] MEDS ORDERED: LORazepam 2 MG/ML VIAL ONE (17:04)
[2020-11-09] MEDS: PIPER/TAZO/NS 3.375gm 3.375 GM/100 ML BAG IVPB SCH (17:26)
[2020-11-09] MEDS ORDERED: MORPHINE 2 MG/ML SYR IV PRN (19:48)
[2020-11-09] MEDS ORDERED: ONDANSETRON 4 MG/2 ML VIAL IV PRN (19:48)
[2020-11-09] MEDS: INSULIN -REGULAR HUMAN 50 UNIT/0.5 ML ML SQ SCH ×2 (19:48→20:06)
[2020-11-09] MEDS: NA CHLORIDE 0.9% 1,000 ML IV SCH (20:04)
[2020-11-09] MEDS: HYDROCODONE/APAP 5/325 MG TAB PO PRN (20:52)
[2020-11-09 23:02] LABS: Albumin 3.1 g/dL (3.4-5.0); Bilirubin Direct 0.3 mg/dL (0-0.2); Bilirubin Total 1.1 mg/dL (0.2-1.0); Protein, Total 6.9 g/dL (6.4-8.2)
[2020-11-10] MEDS ORDERED: PIPERACIL/TAZO 3.375 GM VIAL IV ONE (00:37)
[2020-11-10] MEDS ORDERED: NA CHLORIDE 0.9% 100 ML ONE (00:37)
[2020-11-10 00:54] LABS: Urine Appearance CLEAR (Clear); Urine Bilirubin NEGATIVE (Negative); Urine Blood NEGATIVE (Negative); Urine Color YELLOW (Yellow); Urine Glucose NEGATIVE (Negative); Urine Protein 1+ (Negative)
[2020-11-10] MEDS: PIPER/TAZO/NS 3.375gm 3.375 GM/100 ML BAG IVPB SCH ×3 (01:00→17:07)
[2020-11-10 01:17] LABS: Urine Microscopic Reflex NO UMIC
[2020-11-10 04:31] LABS: Absolute Lymphocytes (CBC) 0.9 K/uL (0.7-4.9); Basophils % 0.6 % (0-1.3); Hematocrit 35.2 % (36.0-45.0); Lymphocytes % 15.5 % (15.3-44.8); MPV 10.9 fL (7.6-11.3)
[2020-11-10 04:48] LABS: Albumin 3.3 g/dL (3.4-5.0); Bilirubin Total 1.6 mg/dL (0.2-1.0); Potassium 3.7 mmol/L (3.5-5.1); Protein, Total 7.1 g/dL (6.4-8.2)
[2020-11-10] MEDS: ONDANSETRON 4 MG/2 ML VIAL IV PRN (05:45)
[2020-11-10] MEDS: NA CHLORIDE 0.9% 1,000 ML IV SCH ×2 (05:57→08:45)
[2020-11-10] MEDS ORDERED: KCL 20 MEQ/100 mL IVPB 20 MEQ/100 ML BAG IV SCH (07:00)
[2020-11-10] MEDS ORDERED: NA CHLORIDE 0.9% 1,000 ML IV ONE (07:36)
[2020-11-10] MEDS ORDERED: PNEUMOCOCCAL VACCINE 0.5 ML IMVAC ONE (08:00)
[2020-11-10] MEDS ORDERED: POTASSIUM CL SA 10 MEQ TAB PO ONE (09:00)
--- NOTE | 2020-11-10 09:19 | P.PN ---
Subjective Date of Service: 11/10/20 Chief Complaint: intractable abdominal pain, ventral hernia Subjective: Other (heart rate better ovrernight, remained in afib. denies abd pain this morning. +nausea and few episodes of diarrhea this morning.) Review of Systems 10-point ROS is otherwise unremarkable Physical Examination - Vital Signs Temperature: 97.9 F Blood Pressure: 105/61 Pulse: 98 Respirations: 19 Pulse Ox (%): 95 - Studies Laboratory Data (last 24 hrs) 11/09/20 15:10: PT 12.0, INR 1.04, APTT 24.6 11/09/20 15:10: Sodium 135 L, Potassium 3.3 L, BUN 7, Creatinine 1.02, Glucose 170 H 11/09/20 15:10: WBC 6.60, Hgb 12.7, Hct 38.1, Plt Count 103 L Assessment & Plan Physician Review Additional Text: Physical Exam Gen: NAD, AAOx3 HEENT: normal conjunctiva, sclera anicteric CV: irregular rate/rhythm, HR: 100, no murmur Pulm: clear to auscultation bilaterally, nonlabored on room air Abd: soft, +Ventral hernia nontender/reducible, +umbilical hernia: nontender/re ducible Ext: no edema, no rash Problem List Abdominal pain due to ventral hernia nausea/diarrhea new onset Afib with RVR EYAL DM2, insulin dependent HTN Anxiety Chronic pain -nausea/diarrhea overnight/this morning, possible gastroenteritis vs medication induced -also with rise in creatinine, possibly from dehydration with diarrhea, no urinary retention, denies history of CKD -NPO, increase IVF to 125/hr for now -nephrology consulted -patient in new onset afib in ER, rate improved with metoprolol however still in afib, echo ordered, cardiology consulted, no anticoagulation at this time as patient will be undergoing surgery -pain control -home valium ordered for anxiety -obtain/confirm home medications, restart as appropriate. patient unsure of exact insulin 70/30 dosing -insulin sliding scale / accucheks -Dr. Wade consulted Diet: npo for surgery, IVF VTE: SCDs Code: fulld Dispo: anticipate dc home in 24-48hrs Time Spent Managing Pts Care (In Minutes): 45
[2020-11-10] MEDS ORDERED: AMIODARONE HCL 150 MG in D5W 100 ML IV STA (09:54)
[2020-11-10] MEDS ORDERED: AMIODARONE HCL 450 MG in D5W 241 ML IV SCH (10:00)
[2020-11-10] MEDS: LOPERAMIDE HCL 2 MG CAPSULE PO PRN (10:30)
[2020-11-10] MEDS: INSULIN -REGULAR HUMAN 50 UNIT/0.5 ML ML SQ SCH ×4 (10:32→21:00)
--- NOTE | 2020-11-10 10:34 | EKG ---
Test Date: 2020-11-09 Test Time: 16:24:52 Systems Engineering Manager: PH MEASUREMENT RESULTS: Intervals: Rate: 138 PA: QRSD: 78 QT: 312 QTc: 472 [place]: P: PA: QRS: 46 T: 21 INTERPRETIVE STATEMENTS: Atrial fibrillation with rapid ventricular response with premature ventricular or aberrantly conducted complexes Possible Anterior infarct, age undetermined Abnormal ECG No previous ECG available for comparison Electronically Signed On 11-10-20 10:31:44 CDT by Robert Garcia
--- NOTE | 2020-11-10 10:36 | ECHO ---
HEIGHT: 5 ft 3 in WEIGHT: 190 lb 0 oz DATE OF STUDY: 11/10/[address]: Rah Navas MD 2-DIMENSIONAL: YES M.MODE: YES DOPPLER: YES COLOR FLOW: YES TDS: NO PORTABLE: NO DEFINITY: NO BUBBLE STUDY: NO DIAGNOSIS: ATRIAL FIBRILLATION CARDIAC HISTORY: CATHERIZATION: NO SURGERY: NO PROSTHETIC VALVE: NO PACEMAKER: NO MEASUREMENTS (cm) DIASTOLIC (NORMALS) SYSTOLIC (NORMALS) IVSd 1.0 (0.6-1.2) LA Diam 4.8 (1.9-4.0) LVEF 51% LVIDd 4.2 (3.5-5.7) LVIDs 3.1 (2.0-3.5) %FS 26% LVPWd 1.1 (0.6-1.2) Ao Diam 2.6 (2.0-3.7) 2 DIMENSIONAL ASSESSMENT: RIGHT ATRIUM: NORMAL LEFT ATRIUM: DILATED RIGHT VENTRICLE: NORMAL LEFT VENTRICLE: NORMAL TRICUSPID VALVE: NORMAL MITRAL VALVE: NORMAL PULMONIC VALVE: NORMAL AORTIC VALVE: NORMAL PERICARDIAL EFFUSION: NONE AORTIC ROOT: NORMAL LEFT VENTRICULAR WALL MOTION: NORMAL DOPPLER/COLOR FLOW: MILD TRICUSPID REGURGITATION. NORMAL RIGHT VENTRICULAR SYSTOLIC PRESSURE. COMMENTS: NORMAL LEFT VENTRICULAR SIZE AND FUNCTION. LEFT VENTRICULAR EJECTION FRACTION 51%. ATRIAL FIBRILLATION WITH RAPID VENTRICULAR RESPONSE. MILD TRICUSPID REGURGITATION. NORMAL RIGHT VENTRICULAR SYSTOLIC PRESSURE. LEFT ATRIAL ENLARGEMENT. NO THROMBUS. TECHNOLOGIST: Vika JACOB
--- NOTE | 2020-11-10 11:33 | RAD REPORT ---
EXAM DESCRIPTION: US - Renal Ultrasound-Complete - 11/10/2020 11:09 am CLINICAL HISTORY: EYAL Flank pain COMPARISON: No comparisons FINDINGS: Both kidneys are normal in size, shape and echotexture. The right kidney measures 10.3 x 4.8 x 4.3 cm. No hydronephrosis, focal mass or perinephric fluid. The left kidney measures 11.5 x 4.7 x 4.0 cm. No hydronephrosis, focal mass or perinephric fluid. The urinary bladder is incompletely distended without gross abnormality seen. IMPRESSION: Unremarkable renal sonogram.
[2020-11-10] MEDS: HYDROCODONE/APAP 5/325 MG TAB PO PRN ×2 (12:06→19:13)
--- NOTE | 2020-11-10 12:42 | CON ---
Date of Consultation: 11/10/2020 Reason For Consultation: Elevated BUN and creatinine, hypertension. History Of Present Illness: This is a pleasant 79-year-old female. All the information has been obt ained from the son by bedside as the patient is in pain and do not speak Mongolian. 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 The patient developed AFib with RVR. The patient denied taking any nonsteroi alek or change in her medications. Upon arrival to the hospital, her creatinine was 1, today creatini ne 1.6. For that reason, we have been consulted. Reviewing the record for the patient, the patient had CT with contrast yesterday. The patient had AFib yesterday and had low blood pressure down to th e 90. Reviewing the medication, the patient is supposed to be started on amiodarone. As home medica tion, the patient is being on losartan and Lasix. Past Medical History: Includes; 1.Hypertension. 2.Hyperlipidemia. 3.Diabetes complicated with neuropathy and no retinopathy. 4.Chronic kidney disease. Upon arrival to the hospital, creatinine 1 with GFR of 53. Allergies: TO CIPRO, GENTAMICIN, IODINE, NITROFURANTOIN, AND SULFA. Home Medications: Include amlodipine, aspirin, diazepam, demeclocycline, Lasix 20, hydrocodone, levo thyroxine, losartan, metoprolol, omeprazole, pravastatin, promethazine. Family History: Positive for hypertension and diabetes. Social History: Denied smoking. Denied drinking. Denied drugs abuse. Review of Systems: Head and Neck: No red eye. No ear pain. GI: Has abdominal pain. Has nausea. : No polyuria. No dysuria. No hematuria. WAGE AND SALARY SPECIALIST: No vaginal discharge. Respiratory: No shortness of breath. Cardiovascular: No chest pain. Endocrine: No polydipsia. Skin: No rash. Neuro: Has neuropathy. Musculoskeletal: No joint pain. Physical Examination: Vital Signs: When I saw the patient; blood pressure 105/61, pulse of 98, afebrile. Chest: Clear to auscultation. Heart: S1, S2. Regular. Tachy. Abdomen: Soft. Incarcerated hernia on the midline. Extremities: No edema. Neuro: Alert. No focality. Laboratory Data: Sodium 139, potassium 3.7, bicarb 25, BUN 11, creatinine 1.6, GFR of 30, calcium 8, magnesium of 2. Albumin of 3.3. WBC 5.8, H and H 11.5/35. Urinalysis; specific gravity of 1.010, +1 protein. Renal ultrasound still pending. Assessment And Plan: 1.Acute kidney injury, multifactorial, possible contrast-induced nephropathy/prerenal secondary to p oor perfusion, ATN, superimposed with atrial fibrillation. To rule out any atheroemboli, I am going to go ahead and send for complement and urine eosinophil and we will follow up the patient. We will start the patient on hydration. I agree with holding the Lasix and losartan given the recent exposur e to contrast and the acute kidney injury and we will follow up. 2.Hypertension, currently low blood pressure. Hold all blood pressure medications. We will continu e hydration. I am going to order chest x-ray for better evaluation for the fluid status for the cade ent. 3.Atrial fibrillation with rapid ventricular response as by Cardiology. Again, we will send for com plement and urine eosinophil and repeat UA. 4.Diabetes as by primary. 5.Incarcerated hernia as by the Surgery. RANDELL/ALLIE Voice ID: [id number] Report ID: [id number]
--- NOTE | 2020-11-10 16:32 | RAD REPORT ---
EXAM DESCRIPTION: RAD - Chest Single View - 11/10/2020 3:31 pm CLINICAL HISTORY: COPD COMPARISON: None TECHNIQUE: AP portable chest image was obtained 11/10/2020 3:31 pm . FINDINGS: Lungs are clear. Heart size is prominent, accentuated by under penetrated portable techniq ue. No acute vascular engorgement. No measurable pleural effusion and no pneumothorax. No acute bony abnormality seen. No acute aortic findings suspected. IMPRESSION: No acute cardiopulmonary process.
[2020-11-10] MEDS ORDERED: AMIODARONE HCL 900 MG in D5W 482 ML IV SCH (17:00)
[2020-11-10] MEDS ORDERED: PIPER/TAZO/NS 3.375gm 3.375 GM/100 ML BAG ONE (17:27)
[2020-11-10] MEDS ORDERED: HYDROCODONE/APAP 5/325 MG TAB ONE (19:11)
[2020-11-11] MEDS: HYDROCODONE/APAP 5/325 MG TAB PO PRN (01:15)
[2020-11-11] MEDS: PIPER/TAZO/NS 3.375gm 3.375 GM/100 ML BAG IVPB SCH ×3 (01:17→21:23)
[2020-11-11] MEDS: NA CHLORIDE 0.9% 1,000 ML IV SCH ×3 (01:17→17:31)
[2020-11-11] MEDS ORDERED: HYDROCODONE/APAP 5/325 MG TAB ONE (01:35)
[2020-11-11] MEDS ORDERED: PIPER/TAZO/NS 3.375gm 3.375 GM/100 ML BAG ONE (01:36)
[2020-11-11] MEDS: ONDANSETRON 4 MG/2 ML VIAL IV PRN (06:04)
--- NOTE | 2020-11-11 06:12 | P.PN ---
Subjective Date of Service: 11/11/20 Chief Complaint: intractable abdominal pain, ventral hernia Underwent laparoscopic ventral hernia repair with mesh today. Physical Examination - Vital Signs Temperature: 96.9 F Blood Pressure: 114/86 Pulse: 102 Respirations: 24 Pulse Ox (%): 93 - Physical Exam General: Other (Appears as her stated age) HEENT: Atraumatic, Normocephalic Neck: Supple Respiratory: Diminished Cardiovascular: No rubs, No murmurs Gastrointestinal: Soft and benign Musculoskeletal: No clubbing, No swelling Integumentary: No warmth Neurological: Normal tone Urinary: Marroquin catheter External genitalia: Deferred Rectal: Deferred Assessment And Plan - Plan # EYAL, multifactorial, possible contrast-induced nephropathy/prerenal secondary to poor perfusion, ATN, superimposed with atrial fibrillation w/ RVR, & hypotension R/o atheroemboli. No peripheral eosinophilia. F/u C3 & C4. Has hypotension episodes yesterday & also deonte-operatively today Start midodrine 5 mg po bid MAP goal > 65-70 HR control per Cardiology Keep marroquin Monitor I/O, renal panel # Afib Mngt per Cardiology Anticoagulation therapy held d/t surgery today # Incarcerated abdominal/ventral hernia S/p repair w/ mesh on 11/11 On antibiotics # Htn Hypotensive episodes yesterday & today Received IV fluid bolus Midodrine as above # DM Mngt per primary team
[2020-11-11] MEDS ORDERED: ONDANSETRON 4 MG/2 ML VIAL ONE (06:24)
[2020-11-11] MEDS ORDERED: MORPHINE 2 MG/ML SYR ONE (06:51)
[2020-11-11] MEDS: HYDROMORPHONE HCL 1 MG/ML INJ IV PRN ×3 (07:03→20:30)
[2020-11-11] MEDS ORDERED: HYDROMORPHONE HCL 1 MG/ML INJ ONE ×3 (07:20→19:31)
[2020-11-11 07:30] LABS: Basophils % 0.6 % (0-1.3); Hematocrit 35.2 % (36.0-45.0); Lymphocytes % 19.4 % (15.3-44.8); MPV 11.6 fL (7.6-11.3); RBC Red Blood Cell Count 3.73 M/uL (3.86-4.86)
[2020-11-11] MEDS: INSULIN -REGULAR HUMAN 50 UNIT/0.5 ML ML SQ SCH ×4 (07:30→21:24)
[2020-11-11 07:54] LABS: Albumin 3.4 g/dL (3.4-5.0); Phosphorus 3.6 mg/dL (2.5-4.9); Potassium 4.1 mmol/L (3.5-5.1)
[2020-11-11] MEDS ORDERED: METOPROLOL TARTRATE 5 MG/5 ML INJ IV STA ×2 (08:22→08:48)
[2020-11-11] MEDS ORDERED: METOPROLOL TARTRATE 5 MG/5 ML INJ IV ONE ×3 (08:48→09:16)
--- NOTE | 2020-11-11 09:01 | P.PN ---
Subjective Date of Service: 11/10/20 Chief Complaint: intractable abdominal pain, ventral hernia Patient scheduled for surgery, feels very anxious, had AFib with RVR overnight Physical Examination - Vital Signs Temperature: 96.9 F Blood Pressure: 120/78 Pulse: 118 Respirations: 22 Pulse Ox (%): 96 - Physical Exam General: Alert, Oriented x3, Cooperative (anxiety) Gastrointestinal: Other (soft, moderate TTP @ verntral hernias, incarcerated) Assessment And Plan - Current Problems (Diagnosis) (1) Incarcerated ventral hernia Current Visit: Yes Status: Acute Plan: - Patient had atrial fibrillation with RVR, anesthiologist wanted patient corrected prior to surgical intervention, - Patient started on Amiodarone per Dr. Garcia - will plan for surgical intervention in AM if patient stabilized Physician Review Additional Text: Physical Exam Gen: NAD, AAOx3 HEENT: normal conjunctiva, sclera anicteric CV: irregular rate/rhythm, HR: 100, no murmur Pulm: clear to auscultation bilaterally, nonlabored on room air Abd: soft, +Ventral hernia nontender/reducible, +umbilical hernia: nontender/reducible Ext: no edema, no rash Problem List Abdominal pain due to ventral hernia nausea/diarrhea new onset Afib with RVR EYAL DM2, insulin dependent HTN Anxiety Chronic pain -nausea/diarrhea overnight/this morning, possible gastroenteritis vs medication induced -also with rise in creatinine, possibly from dehydration with diarrhea, no urinary retention, denies history of CKD -NPO, increase IVF to 125/hr for now -nephrology consulted -patient in new onset afib in ER, rate improved with metoprolol however still in afib, echo ordered, cardiology consulted, no anticoagulation at this time as patient will be undergoing surgery -pain control -home valium ordered for anxiety -obtain/confirm home medications, restart as appropriate. patient unsure of exact insulin 70/30 dosing -insulin sliding scale / accucheks -Dr. Wade consulted Diet: npo for surgery, IVF VTE: SCDs Code: fulld Dispo: anticipate dc home in 24-48hrs
[2020-11-11 09:13] LABS: Platelet Estimate DECR; White Blood Cell Scan OK (OK)
[2020-11-11 09:14] LABS: Blood Morphology Comment NOT SEEN (NOT SEEN)
[2020-11-11] MEDS ORDERED: NA CHLORIDE 0.9% 1,000 ML ONE ×3 (10:10→17:44)
[2020-11-11] MEDS ORDERED: MIDAZOLAM HCL 2 MG/2 ML INJ ONE (10:12)
[2020-11-11] MEDS: BUPIVACAINE 0.25% PF 10 ML VIAL ONE ×2 (10:27→10:42)
[2020-11-11] MEDS ORDERED: propofoL 200 MG/20 ML VIAL IV ONE (10:29)
[2020-11-11] MEDS ORDERED: ROCURONIUM 50 MG/5 ML VIAL IV ONE (10:30)
[2020-11-11] MEDS ORDERED: FENTANYL CITR 100 MCG/2 ML ONE (10:30)
[2020-11-11] MEDS ORDERED: LIDOCAINE 2% MPF 5 ML VIAL ONE (10:30)
[2020-11-11] MEDS ORDERED: Phenylephrine HCl 10 MG/ML 1 ML VIAL ONE (11:01)
--- NOTE | 2020-11-11 12:01 | P.OP ---
Preoperative diagnosis: Incarcerated Ventral Abdominal Wall Hernias Postoperative diagnosis: Incarcerated Ventral Abdominal Wall Hernias Primary procedure: Laparoscopic Adhesiolysis > 1 hour Secondary procedure: Laparoscopic ventral hernia repair with mesh Anesthesia: GETA + Local Estimated blood loss: <20cc Specimen: none Findings: multiple incarcerated ventral abdominal wall hernias, colon, SB involved Complications: None Implants: 20 x 15 cm Bard Ventralite Mesh with Echo positoin Transferred to: Recovery Room Condition: Good
[2020-11-11] MEDS ORDERED: NEOSTIGMINE 1 MG/ML -5 ML ONE (12:16)
[2020-11-11] MEDS ORDERED: GLYCOPYRROLATE 0.2 MG/ML SYR ONE ×2 (12:16→12:17)
--- NOTE | 2020-11-11 13:26 | CON ---
Date of Consultation: 11/09/2020 Brief History Of Present Illness: The patient is a 79-year-old female known to me from previous clin ic visits where she came to me with complaints of abdominal pain and was found to have a ventral abdo jethro hernia x2, 1 in the periumbilical position, 1 in the ventral abdominal wall. She was scheduled for surgery on multiple occasions, but on every occasion she got "nervous" and canceled the surgery. She came to my clinic on 11/09/2020 for discussion and surgical planning once again as her abdomina l pain increased over the past 2 days. When seen in the clinic, she had significant abdominal pain a nd as such she was sent by ambulance to the emergency room for admission and surgical planning. Past Medical History: Significant for diabetes, hypertension, bilateral lower extremity edema, chron ic pain, hypothyroidism, anxiety, cirrhosis/JUAREZ, nonalcoholic steatohepatitis. Past Surgical History: She has had a prior ventral hernia repair. EGD and colonoscopy with Dr. Maldonado . Allergies: TO CIPRO, GENTAMICIN, IODINE, NITROFURANTOIN, AND SULFA. Home Medications: Include Norvasc, aspirin, Valium, dicyclomine, Lasix, [place], NovoLog, Synthroid, C ozaar, meclizine, metoprolol, Prilosec, pravastatin, Phenergan. Social History: She denies smoking, alcohol, or recreational drug. Review of Systems: Ten-point review of systems other than HPI, denies. Physical Examination: At the time of my examination: General: She is awake, alert, and oriented. Psychiatric: She is appropriately conversive. HEENT: She is normocephalic. Her sclerae are anicteric. Her mucous membranes are moist. Oropharyn x is clear. Neck: Supple without JVD. Chest: Normal expansion and excursion. Cardiovascular: She is tachycardic during my examination, but she states she is nervous and has anxi ety. Chest: Otherwise unremarkable. Abdomen: Soft with positive tenderness to the periumbilical and left upper ventral abdominal area wh ere incarcerated ventral hernias are palpable. They are tender on examination. Extremities: No clubbing, cyanosis, or edema. Skin: Warm and dry. Laboratory Data: Reveals a white blood cell count of 6.6, hemoglobin 12.7, hematocrit 38.1, platelet count was 103. Her sodium was 135, potassium 3.3, chloride 104, carbon dioxide of 25, BUN 7, creati nine 1.02, glucose 170, lactic acid is 1.4, calcium is 8.4, total bilirubin 1.1, direct bilirubin 0.3 , AST 26, ALT 27, alkaline phosphatase 107. UA was essentially negative. She had imaging performed, which included a CT of the abdomen and pelvis, officially read as a ventra l hernia within the abdomen midline, has a neck of 2 cm. The herniated sac measures 8 cm and contain s a small amount of fluid and stranding within the fat. Umbilical hernia has a neck of 1.6 cm. Donna ia sac measured 4.3 cm and contains fluid. There is a 4.2 cm cystic left adnexal mass, 1.8 cm subser osal calcified uterine fibroids. Small amount of ascites stranding present within the fat of the ome ntum and peritoneum. Small inguinal hernias containing fat. She has cirrhosis as well. Assessment And Plan: This is a 79-year-old female who comes in with signs and symptoms of incarcerat ed possibly strangulated ventral abdominal hernias. 1.IV fluid hydration. 2.Antibiotic coverage. 3.Medical optimization and management and hydration prior to surgery and cardiac clearance prior nikko daniel as the patient's heart rate continues to be high. I have explained the risks, benefits, and alt ernatives of laparoscopic possible open ventral abdominal hernia repair including, but not limited to bleeding, infection, damage to surrounding tissues, blood clots, strokes, heart attack, trouble with mesh, need for further operation procedures. Kinyarwanda-speaking staff are present during my discussion as well as family members. PHYLLIS/ALLIE Voice ID: [id number] Report ID: [id number]
[2020-11-11] MEDS ORDERED: NA CHLORIDE 0.9% 500 ML IV ONE ×2 (15:00→18:47)
[2020-11-11] MEDS: MIDODRINE HCL 5 MG TABLET PO SCH ×2 (15:50→21:26)
--- NOTE | 2020-11-11 17:43 | P.PN ---
Subjective Date of Service: 11/11/20 Chief Complaint: intractable abdominal pain, ventral hernia Subjective: Other (did well overnight, received 1dose ativan. this morning reports significant pain in groin - feels like needs to urinate or have BM. marroquin placed with minimal UOP, pt with rectal pain) Review of Systems 10-point ROS is otherwise unremarkable Physical Examination - Vital Signs Temperature: 97.3 F Blood Pressure: 91/69 Pulse: 80 Respirations: 96 Pulse Ox (%): 21 Assessment & Plan Physician Review Additional Text: Physical Exam Gen: moderate distress, AAOx3 HEENT: normal conjunctiva, sclera anicteric CV: irregular rate/rhythm, HR: 100-130, no edema Pulm: clear to auscultation bilaterally, nonlabored on room air Abd: soft, +Ventral hernia nontender/reducible, +umbilical hernia: nontender/reducible Ext: no edema, no rash : no rash/discharge, marroquin in place no external hemorrhoid / fissure Problem List Abdominal pain due to ventral hernia nausea/diarrhea new onset Afib with RVR EYAL DM2, insulin dependent HTN Anxiety Chronic pain -nausea/diarrhea overnight/this morning, possible gastroenteritis vs medication induced -also with rise in creatinine, possibly from dehydration with diarrhea, denies history of CKD -continue IVF, nephrology consulted -npo for surgery today -more tachycardic when in pain and anxious -will give metoprolol 5mg IV q5min x3 - discussed with cardiology -resume PO metoprolol after surgery if can tolerate -continue amiodarone - increased rate -pain control -home valium ordered for anxiety -insulin sliding scale / accucheks -Dr. Wade consulted Diet: npo for surgery, IVF VTE: SCDs Code: fulld Dispo: anticipate dc home in ~48hrs Time Spent Managing Pts Care (In Minutes): 40
[2020-11-11] MEDS ORDERED: ALBUMIN HUMAN 25% 100 ML IV ONE (20:00)
--- NOTE | 2020-11-11 20:31 | OP ---
Date of Procedure: 11/11/2020 Surgeon: Omari Wade MD, Preoperative Diagnosis: Incarcerated ventral abdominal hernias. Postoperative Diagnosis: Incarcerated ventral abdominal hernias. Procedure Performed: 1.Laparoscopic adhesiolysis greater than 1. 2.Laparoscopic ventral hernia repair with mesh. 3.Laparoscopic primary hernia closure. Anesthesia: General endotracheal plus local with 0.25% Marcaine. Estimated Blood Loss: 20 cc. Specimen: None. Findings: Multiple incarcerated ventral abdominal hernias, colon and small bowel were involved, michele s obvious cirrhosis. Complication: None. Implants: 20 x 15 cm Bard Ventralight mesh with echo positioning system. Disposition: The patient was transferred to recovery room in good condition. Procedure In Detail: After informed consent was obtained, patient was brought to the operating room, prepped and draped in the usual sterile fashion after adequate anesthesia was achieved. The area of left upper quadrant was anesthetized with 0.25% Marcaine. A 5 mm trocar was introduced in the abdom en without evidence of complication. Insufflation was obtained to 15 mmHg. At this time, there was no injury to vital structure upon entering the abdomen. The abdomen was inspected. At this point, t wo additional trocar sites were chose in the left lower quadrant and the left mid abdomen, were locat ed, identified and a 5 mm trocar was placed in left lower quadrant and a 12 mm trocar was placed in t he left mid quadrant under direct visualization without evidence of complication. Ratcheted grasper was used to grasp the patient's omentum, which was found to be in close apposition and contained with in an incarcerated ventral abdominal hernia. The patient had a previous hernia repair in this area. This was clearly involved. Careful meticulous dissection was required as the colon and small bowel were closely involved using a combination of LigaSure and blunt dissection. All these structures wer e swept clear, which took a little bit over an hour to perform. After this was performed, the area w as inspected and found to be quite clean at this point displaying several abdominal hernias rather th an a single abdominal hernia. There was 1 umbilical hernia and multiple ventral abdominal hernias. After measuring this area and sizing it appropriately, I brought in the Endo stitch with a V-Loc and 0 V-Loc was then used to run these defects closed with good apposition of the tissue. At this point, I then brought in the Bard Ventralight ST mesh with Echo positioning system of 20 x 15 cm, deployed in between the mesh to allow for 5 cm of overlap between the 2 hernia defects. At this point, the ab sorbable fixation SorbaFix Tacker was used to secure the mesh to the anterior abdominal wall. The ba lloon deployment system was then removed intact and the remainder of the approximately 90 tacks were used to secure a double crown type positioning of the mesh to anterior abdominal wall with good appos ition of the mesh to the abdominal wall. At this point, the area was inspected. No hemostatic maneu vers were required. I then closed the 12 mm trocar site using a Fred-Wayne suture passer with a 0 Vicryl in interrupted fashion with good approximation of tissues. The remaining trocars were jeremiah nikki under direct visualization without evidence of complication. All skin incisions were then copiou sly irrigated and closed with a 4-0 Monocryl in a running fashion. Dermabond was placed over top. T he patient tolerated the procedure well without evidence of complication and transferred to PACU in g ood condition. All counts were correct at the end of the case. PHYLLIS/MARISOLL Voice ID: [id number] Report ID: [id number]
[2020-11-11] MEDS ORDERED: INSULIN -REGULAR HUMAN 50 UNIT/0.5 ML ML ONE (21:14)
[2020-11-12] MEDS ORDERED: HYDROMORPHONE HCL 1 MG/ML INJ ONE (00:03)
[2020-11-12] MEDS: HYDROMORPHONE HCL 1 MG/ML INJ IV PRN (00:15)
[2020-11-12] MEDS: PIPER/TAZO/NS 3.375gm 3.375 GM/100 ML BAG IVPB SCH ×3 (01:23→16:52)
[2020-11-12] MEDS: NA CHLORIDE 0.9% 1,000 ML IV SCH (01:23)
[2020-11-12] MEDS ORDERED: NA CHLORIDE 0.9% 1,000 ML ONE (01:40)
[2020-11-12] MEDS: HYDROCODONE/APAP 5/325 MG TAB PO PRN ×3 (05:27→23:45)
[2020-11-12] MEDS ORDERED: HYDROCODONE/APAP 5/325 MG TAB ONE ×3 (05:48→23:51)
[2020-11-12 05:53] LABS: Absolute Lymphocytes (CBC) 1.1 K/uL (0.7-4.9); Basophils % 0.2 % (0-1.3); Hematocrit 29.9 % (36.0-45.0); Lymphocytes % 9.3 % (15.3-44.8); MPV 11.1 fL (7.6-11.3); RBC Red Blood Cell Count 3.18 M/uL (3.86-4.86)
[2020-11-12 06:10] LABS: Albumin 2.9 g/dL (3.4-5.0); Magnesium 1.7 mg/dL (1.8-2.4); Phosphorus 3.7 mg/dL (2.5-4.9); Potassium 4.3 mmol/L (3.5-5.1)
[2020-11-12] MEDS: INSULIN -REGULAR HUMAN 50 UNIT/0.5 ML ML SQ SCH ×4 (07:31→21:09)
[2020-11-12] MEDS: MIDODRINE HCL 5 MG TABLET PO SCH ×2 (07:32→20:23)
[2020-11-12] MEDS: METOPROLOL TAR 25 MG TAB PO SCH ×2 (10:06→17:44)
[2020-11-12] MEDS ORDERED: METOPROLOL TAR 25 MG TAB ONE ×2 (10:26→17:21)
--- NOTE | 2020-11-12 11:22 | RAD REPORT ---
EXAM DESCRIPTION: RAD - Chest Single View - 11/12/2020 10:59 am CLINICAL HISTORY: ARF, Vl overload COMPARISON: November 10 TECHNIQUE: AP portable chest image was obtained 11/12/2020 10:59 am . FINDINGS: Lung volumes are low accentuating the baseline interstitial pattern. Cardiomegaly and vasc ular engorgement are present also due to portable technique and low lung volumes. Trachea is midline. No measurable pleural effusion and no pneumothorax. No acute bony abnormality seen. No acute aortic findings suspected. IMPRESSION: No peripheral mass or consolidation identifiable. Heart, vasculature and lung markings are accentuated due to shallow inspiration. No significant failu re or volume overload suspected.
[2020-11-12] MEDS ORDERED: FUROSEMIDE 40 MG/4 ML VIAL IV ONE (12:00)
[2020-11-12] MEDS ORDERED: INSULIN -REGULAR HUMAN 50 UNIT/0.5 ML ML ONE ×3 (12:01→21:33)
[2020-11-12] MEDS: ONDANSETRON 4 MG/2 ML VIAL IV PRN (12:03)
[2020-11-12 12:08] LABS: Urine Protein/Creatinine Ratio 0.55 ratio (<0.15)
[2020-11-12 12:13] LABS: Urine Appearance CLOUDY (Clear); Urine Bilirubin NEGATIVE (Negative); Urine Blood 2+ (Negative); Urine Color YELLOW (Yellow); Urine Glucose NEGATIVE (Negative); Urine Protein TRACE (Negative); Urine Specific Gravity 1.015 (1.005-1.030); Urine Urobilinogen 0.2 mg/dL (0.2-1.0)
[2020-11-12] MEDS ORDERED: ONDANSETRON 4 MG/2 ML VIAL ONE (12:24)
--- NOTE | 2020-11-12 12:59 | P.PN ---
Subjective Date of Service: 11/12/20 Chief Complaint: intractable abdominal pain, ventral hernia Subjective: Improving (feeling better after surgery. +abdominal pain - mostly with movement / deep breath. reports some pain and sensation of needing to urinate/have BM still. marroquin in place, UOP improving. -nausea. +headache) Review of Systems 10-point ROS is otherwise unremarkable Physical Examination - Vital Signs Temperature: 96.9 F Blood Pressure: 112/77 Pulse: 114 Respirations: 20 Pulse Ox (%): 97 Assessment & Plan Physician Review Additional Text: Physical Exam Gen: NAD, AAOx3 HEENT: normal conjunctiva, sclera anicteric CV: irregular rate/rhythm, HR: 100-120, +edema b/l feet Pulm: clear to auscultation bilaterally, diminished at bases, nonlabored Abd: +abdominal tenderness, surgical dressing c/d/i, abd binder in place : no rash/discharge, marroquin in place Problem List Abdominal pain due to ventral hernia new onset /finding Afib with RVR EYAL DM2, insulin dependent HTN Anxiety Chronic pain -EYAL, unclear etiology, prerenal vs obstruction, however no improvement s/p marroquin and no evidence of further obstruction -nephrhology consulted -s/p ventral hernia repair on 11/11, pain control and advance diet per surgery -continue amio drip, add PO metoprolol, titrate as needed if BP can tolerate -home valium ordered for anxiety -insulin sliding scale / accucheks -Cardiology consulted, if no improvement, may need cardioversion on Saturday -pt with sensation of needing to urinate / have BM, reports significant pain, no outward evidence of infection -Adnexal mass noted on CT, unlikely to be causing issue, will obtain transvaginal US for further eval -dc marroquin in AM -discussed with surgery - hold off anticoagulation for at least 48hrs, ok with VTE prophylaxis Diet: ADA VTE: heparin sq Code: full Dispo: anticipate dc home in ~48-72hrs Time Spent Managing Pts Care (In Minutes): 45
[2020-11-12] MEDS ORDERED: FUROSEMIDE 40 MG in NA CHLORIDE 0.9% 50 ML IV ONE (13:00)
[2020-11-12 13:11] LABS: Urine Bacteria <20 /HPF (<20)
[2020-11-12 13:24] LABS: C.diff Antigen/Toxin Ag neg : Tox neg (NEG : NEG)
--- NOTE | 2020-11-12 13:32 | PN ---
Date of Progress Note: 11/12/2020 Subjective: The patient was admitted with incarcerated hernia. The patient had acute kidney injury secondary to contrast-induced nephropathy and poor perfusion, ATN, atrial fibrillation. The patient after hydration stabilized of blood pressure. Kidney function has plateaued. Physical Examination: Vital Signs: When I saw the patient, blood pressure 112/75, afebrile, tachycardic. Heart: S1, S2. Regular. Tachycardic. Chest: Faint rales bilateral base. Abdomen: Soft, mild tenderness. No guarding or rebound. Extremity: Trace edema. Neuro: Alert. No focality. Laboratory Data: Sodium 135, potassium 4.3, bicarb 19, BUN 19, creatinine 2.3, calcium 7, phos 3.7, magnesium 1.7, albumin 2.9. WBC 11.9, H and H 9.9/29.9. Urine eosinophil PC ratio is still pending. Complement is still pending. Current Medications: The patient on, its include: 1.Zosyn. 2.Midodrine 5 b.i.d. 3.Amiodarone. 4.Metoprolol. 5.Loperamide. 6.Normal saline. Assessment And Plan: 1.Acute kidney injury, multifactorial, secondary to contrast-induced nephropathy, prerenal/cardioren al slightly on the over volume side. I am going to discontinue IV fluid. We will give the patient g entle dose of Lasix and we will monitor the patient. 2.Hypertension, currently hypotension. Continue midodrine. We will follow up with Cardiology. 3.Atrial fibrillation with rapid ventricular response as by Cardiology. 4.I sent for complement and urine eosinophils. Doubt to have any embolic as alkaline phosphatase is normal. We will follow up any hematuria in the urine. 5.Incarcerated hernia, status post surgery. We will follow up. RANDELL/ALLIE Voice ID: [id number] Report ID: [id number]
[2020-11-12] MEDS: HYDROMORPHONE HCL 0.5 MG/0.5 ML INJ IV PRN ×2 (14:50→20:44)
--- NOTE | 2020-11-12 14:59 | RAD REPORT ---
EXAM DESCRIPTION: US - Transvaginal Study Probe - 11/12/2020 2:35 pm CLINICAL HISTORY: r/o cystic lesion, adenoxal mass COMPARISON: <Comparisons> TECHNIQUE: Endovaginal sonography was performed. FINDINGS: Nondiagnostic examination. Patient was unable to tolerate endovaginal sonography and trans abdominal sonography access was precluded. Follow-up can be obtained when patient is better able to undergo the examination.
[2020-11-12] MEDS ORDERED: HYDROMORPHONE HCL 0.5 MG/0.5 ML INJ ONE ×2 (15:11→21:05)
[2020-11-12] MEDS: HEPARIN 5000 UNIT/ML 1 ML VIAL SQ SCH (20:24)
[2020-11-12] MEDS ORDERED: HEPARIN 5000 UNIT/ML 1 ML VIAL ONE (20:24)
[2020-11-13] MEDS: PIPER/TAZO/NS 3.375gm 3.375 GM/100 ML BAG IVPB SCH ×3 (00:15→16:51)
[2020-11-13] MEDS: ONDANSETRON 4 MG/2 ML VIAL IV PRN (02:43)
[2020-11-13] MEDS ORDERED: ONDANSETRON 4 MG/2 ML VIAL ONE (03:02)
[2020-11-13] MEDS: METOPROLOL TAR 25 MG TAB PO SCH ×2 (05:55→16:50)
[2020-11-13 05:56] LABS: Absolute Lymphocytes (CBC) 0.7 K/uL (0.7-4.9); Basophils % 0.3 % (0-1.3); Hematocrit 30.3 % (36.0-45.0); Lymphocytes % 11.4 % (15.3-44.8); MPV 10.9 fL (7.6-11.3); RBC Red Blood Cell Count 3.24 M/uL (3.86-4.86)
[2020-11-13] MEDS ORDERED: METOPROLOL TAR 25 MG TAB ONE ×2 (06:15→17:10)
[2020-11-13 06:19] LABS: Albumin 2.9 g/dL (3.4-5.0); Bilirubin Direct 0.4 mg/dL (0-0.2); Bilirubin Total 1.3 mg/dL (0.2-1.0); Magnesium 1.6 mg/dL (1.8-2.4); Phosphorus 2.9 mg/dL (2.5-4.9); Potassium 3.6 mmol/L (3.5-5.1)
--- NOTE | 2020-11-13 06:52 | P.PN ---
Subjective Date of Service: 11/13/20 Chief Complaint: intractable abdominal pain, ventral hernia Subjective: Improving (feeling better, abd pain with deep breath/coughing. marroquin removed this morning. +flatus HR improving but remains tachycardic and in afib. +headache) Review of Systems 10-point ROS is otherwise unremarkable Physical Examination - Vital Signs Temperature: 98.3 F Blood Pressure: 125/74 Pulse: 112 Respirations: 22 Pulse Ox (%): 96 Assessment & Plan Physician Review Additional Text: Physical Exam Gen: NAD, AAOx3 HEENT: normal conjunctiva, sclera anicteric CV: irregular rate/rhythm, HR: 100-110s, +trace to 1+ edema b/l feet Pulm: clear to auscultation bilaterally, diminished at bases, nonlabored on 2L NC Abd: +abdominal tenderness, surgical dressing c/d/i, abd binder in place Problem List Abdominal pain due to incarcerated ventral hernia, s/p repair on 11/11 new onset /finding Afib with RVR EYAL DM2, insulin dependent HTN Anxiety Chronic pain -EYAL, multifactorial, prerenal/cardiorenal possible contrast-induced nephropathy, nephrhology consulted -s/p ventral hernia repair on 11/11, pain control and advance diet per surgery -transition amio drip to PO amio 400mg BID x 7 days, then 200mg daily -lopressor increased, continue as BP tolerates -home valium ordered for anxiety -midodrine added by nephro for hypotension - needing some diuresis and beta marion usage -insulin sliding scale / accucheks -Cardiology consulted, if no improvement, may need cardioversion on Saturday, however patient not anticoagulated - recent surgery, and now with worse thrombocytopenia -Adnexal mass noted on CT, unlikely to be causing issue, U/S attempted, however unable to complete due to patient's discomfort -marroquin dc'd this am -PT consulted Diet: ADA VTE: SCDs, thrombocytopenia Code: full Dispo: can transfer to floor, anticipate dc home in ~48hrs Time Spent Managing Pts Care (In Minutes): 45
[2020-11-13] MEDS: INSULIN -REGULAR HUMAN 50 UNIT/0.5 ML ML SQ SCH ×4 (07:49→20:01)
[2020-11-13] MEDS: HYDROCODONE/APAP 5/325 MG TAB PO PRN ×3 (07:55→20:45)
[2020-11-13] MEDS ORDERED: POTASSIUM CL SA 10 MEQ TAB PO ONE ×2 (08:00→08:08)
[2020-11-13] MEDS ORDERED: INSULIN -REGULAR HUMAN 50 UNIT/0.5 ML ML ONE ×4 (08:07→20:26)
[2020-11-13] MEDS ORDERED: MAGNESIUM SULFATE 1 gm IVPB 1 GM/100 ML BAG IV ONE ×2 (08:08→09:00)
[2020-11-13] MEDS ORDERED: HYDROCODONE/APAP 5/325 MG TAB ONE ×3 (08:14→20:28)
[2020-11-13] MEDS: MIDODRINE HCL 5 MG TABLET PO SCH ×2 (09:00→21:00)
[2020-11-13] MEDS: HEPARIN 5000 UNIT/ML 1 ML VIAL SQ SCH (09:00)
--- NOTE | 2020-11-13 10:54 | PN ---
Date of Progress Note: 11/11/2020 Ms. Ash had come in with incidental rapid atrial fibrillation along with her hypertension, dyslip idemia, diabetes, and hypothyroidism. We had started her on beta-blockers and Lovenox because of her atrial fibrillation, but her heart rate remained fast. She is to go to surgery today for ventral he rnia repair. I would transfer her to the ICU, start on IV amiodarone after a bolus and drip. Hopefu lly, they convert her at least low down enough to have surgery, then we will deal with atrial fibrill ation later. She is asymptomatic as far as atrial fibrillation is concern. She is not having any co ngestive heart failure clinically. I think she is cleared to go to surgery and hopefully, we will tr y to get her heart rate in the low 100s and may be convert her. ISRAEL/ALLIE Voice ID: [id number] Report ID: [id number]
[2020-11-13] MEDS: HYDROMORPHONE HCL 0.5 MG/0.5 ML INJ IV PRN ×2 (16:18→21:11)
[2020-11-13] MEDS ORDERED: HYDROMORPHONE HCL 0.5 MG/0.5 ML INJ ONE ×2 (16:21→21:31)
[2020-11-13] MEDS: AMIODARONE HCL 200 MG TAB PO SCH (16:50)
[2020-11-13] MEDS ORDERED: AMIODARONE HCL 200 MG TAB ONE (17:10)
[2020-11-13] MEDS ORDERED: METOPROLOL TARTRATE 5 MG/5 ML INJ IV STA ×3 (19:27→20:48)
[2020-11-13] MEDS ORDERED: METOPROLOL TARTRATE 5 MG/5 ML INJ IV ONE ×3 (19:52→21:13)
--- NOTE | 2020-11-13 20:21 | PN ---
Date of Progress Note: 11/13/2020 Subjective: The patient was admitted with incarcerated hernia. The patient had surgery. The patien t has atrial fibrillation with RVR. The patient had acute kidney injury secondary to poor perfusion, ATN/contrast induced nephropathy. Yesterday, the patient was slightly on the over volume side, gave Lasix. Currently, blood pressure has been stabilized. Objective: Vital Signs: Blood pressure 125/73. The patient did not receive any midodrine today. T he patient had good urine output of 3500, negative of 1500. Chest: Faint thrills in bilateral base, more on the left side. Heart: S1, S2. Regular. Tachycardic. Abdomen: Soft, nontender. No guarding or rebound. Extremities: No edema. Laboratory Data: H and H 10..3. Sodium 137, potassium 3.6, bicarb 21, BUN 20, creatinine 2, chase nding down. Calcium 7.5, phosphorus 2.9, magnesium 1.6. Current Medications: The patient on midodrine p.r.n. b.i.d., Zosyn, amiodarone, metoprolol 12.5 b.i. d. Assessment And Plan: 1.Acute kidney injury secondary to contrast-induced nephropathy, poor perfusion, acute tubular necro sis, recovered. Look to me started to be in normal volume. We will continue to monitor. 2.Hypertension, currently hypotension. Use midodrine only as needed. We will increase metoprolol t o 25 for better rate control. 3.Atrial fibrillation with rapid ventricular response as by Cardiology. 4.Hypomagnesemia. We will supplement. 5.Hypokalemia. We will supplement. RANDELL/ALLIE Voice ID: [id number] Report ID: [id number]
[2020-11-13] MEDS ORDERED: DIGOXIN 0.25 MG/ML AMP IV ONE (21:27)
[2020-11-13] MEDS ORDERED: DIGOXIN 0.25 MG/ML AMP ONE (21:54)
[2020-11-13] MEDS: DIAZEPAM 5 MG TABLET PO PRN (23:33)
[2020-11-13] MEDS ORDERED: DIAZEPAM 5 MG TABLET ONE (23:54)
[2020-11-14] MEDS: PIPER/TAZO/NS 3.375gm 3.375 GM/100 ML BAG IVPB SCH ×3 (00:09→18:30)
[2020-11-14] MEDS: HYDROMORPHONE HCL 0.5 MG/0.5 ML INJ IV PRN ×3 (03:48→20:10)
[2020-11-14] MEDS ORDERED: HYDROMORPHONE HCL 0.5 MG/0.5 ML INJ ONE ×2 (04:06→14:41)
[2020-11-14 05:21] LABS: Absolute Lymphocytes (CBC) 0.6 K/uL (0.7-4.9); Basophils % 0.4 % (0-1.3); Hematocrit 27.5 % (36.0-45.0); Lymphocytes % 11.8 % (15.3-44.8); MPV 10.7 fL (7.6-11.3); RBC Red Blood Cell Count 2.95 M/uL (3.86-4.86)
[2020-11-14 05:29] LABS: Albumin 2.7 g/dL (3.4-5.0); Bilirubin Direct 0.3 mg/dL (0-0.2); Bilirubin Total 0.9 mg/dL (0.2-1.0); Magnesium 1.6 mg/dL (1.8-2.4); Phosphorus 2.3 mg/dL (2.5-4.9); Potassium 3.9 mmol/L (3.5-5.1); Protein, Total 6.3 g/dL (6.4-8.2)
[2020-11-14] MEDS ORDERED: METOPROLOL TAR 25 MG TAB ONE (05:48)
[2020-11-14] MEDS: METOPROLOL TAR 25 MG TAB PO SCH ×2 (06:05→18:29)
--- NOTE | 2020-11-14 06:22 | P.PN ---
Subjective Date of Service: 11/14/20 Chief Complaint: intractable abdominal pain, ventral hernia Subjective: Other (received metoprolol 5mg IV x3, digoxin x1 for afib with rvr. ~1hr after digoxin, hr <100 pain improved, voiding, +flatus. overall feeling better. +cough) Review of Systems 10-point ROS is otherwise unremarkable Physical Examination - Vital Signs Temperature: 99 F Blood Pressure: 113/77 Pulse: 93 Respirations: 32 Pulse Ox (%): 96 Assessment & Plan Physician Review Additional Text: Physical Exam Gen: NAD, AAOx3 HEENT: normal conjunctiva, sclera anicteric CV: irregular rate/rhythm, HR: 90-110s Pulm: nonlabored on 2L NC Abd: +abdominal tenderness, surgical dressing c/d/i, abd binder in place Neuro: moves all extremities Problem List Abdominal pain due to incarcerated ventral hernia, s/p repair on 11/11 new onset /finding Afib with RVR EYAL DM2, insulin dependent HTN Anxiety Chronic pain -EYAL, multifactorial, prerenal/cardiorenal possible contrast-induced nephropathy, nephrhology consulted -s/p ventral hernia repair on 11/11, pain control and advance diet per surgery -11/13 transitioned amio drip to PO amio 400mg BID x 7 days, then 200mg daily -lopressor increased, continue as BP tolerates -home valium ordered for anxiety -midodrine added by nephro for hypotension - needing some diuresis and beta marion usage -insulin sliding scale / accucheks -Cardiology consulted, if no improvement, may need cardioversion, however patient not anticoagulated - recent surgery, worsening thrombocytopenia -Adnexal mass noted on CT, unlikely to be causing issue, U/S attempted, however unable to complete due to patient's discomfort -cara dc'd 11/13 -PT consulted Diet: ADA VTE: SCDs, thrombocytopenia Code: full Dispo: anticipate dc home in ~24 - 48hrs Time Spent Managing Pts Care (In Minutes): 45
[2020-11-14] MEDS ORDERED: MAGNESIUM SULFATE 1 gm IVPB 1 GM/100 ML BAG IV ONE (07:17)
[2020-11-14] MEDS: INSULIN -REGULAR HUMAN 50 UNIT/0.5 ML ML SQ SCH ×4 (07:30→21:45)
[2020-11-14] MEDS ORDERED: POTASSIUM CL SA 10 MEQ TAB PO ONE ×2 (07:52→08:36)
[2020-11-14] MEDS: AMIODARONE HCL 200 MG TAB PO SCH ×2 (08:22→19:25)
[2020-11-14] MEDS: POTASS/SODIUM PHOSPHATE 1 PKT POWD.PACK PO SCH ×3 (08:22→10:13)
[2020-11-14] MEDS: HYDROCODONE/APAP 5/325 MG TAB PO PRN ×2 (08:22→16:18)
[2020-11-14] MEDS: MIDODRINE HCL 5 MG TABLET PO SCH ×2 (08:23→20:02)
[2020-11-14] MEDS ORDERED: AMIODARONE HCL 200 MG TAB ONE (08:36)
[2020-11-14] MEDS ORDERED: POTASS/SODIUM PHOSPHATE 1 PKT POWD.PACK ONE (08:36)
[2020-11-14] MEDS ORDERED: HYDROCODONE/APAP 5/325 MG TAB ONE (08:37)
[2020-11-14] MEDS: ONDANSETRON 4 MG/2 ML VIAL IV PRN (11:54)
--- NOTE | 2020-11-14 12:01 | PN ---
Date of Progress Note: 11/12/2020 Subjective: Ms. Ash remains in atrial fibrillation with a pulse of 117 and asymptomatic, on IV a miodarone. Underwent her ventricular hernia surgery successfully. Hemodynamically stable. No cardi ac symptoms. I recommend we switch her to p.o. amiodarone 400 b.i.d. for 7 days and then 200 mg daily. Apparently , she has low platelets and may be at risk for bleeding from anticoagulation. I will just keep her o n the baby aspirin. Have high risk factors for heart disease including hypertension, diabetes, and d yslipidemia. Whenever she is ready to go home, she should go home on her home medication plus amioda court plus aspirin. I will make arrangements for her to see her as an outpatient. Otherwise, I will sign off her case for now. ISRAEL/ALLIE Voice ID: [id number] Report ID: [id number]
[2020-11-14] MEDS ORDERED: INSULIN -REGULAR HUMAN 50 UNIT/0.5 ML ML ONE (12:14)
[2020-11-14] MEDS ORDERED: ONDANSETRON 4 MG/2 ML VIAL ONE (12:14)
[2020-11-14] MEDS ORDERED: chlordiazePOXIDE HCl 5 MG CAP PO ONE (15:21)
[2020-11-14] MEDS: DIAZEPAM 5 MG TABLET PO PRN (19:25)
[2020-11-14] MEDS: ACETAMINOPHEN 500 MG TAB PO PRN (22:08)
[2020-11-14] MEDS ORDERED: ACETAMINOPHEN 500 MG TAB ONE (22:29)
--- NOTE | 2020-11-14 22:34 | PN ---
Date of Progress Note: 11/14/2020 Chief Complaint: Acute kidney injury secondary to contrast-induced nephropathy. Subjective: The patient developed hypoperfusion due to prerenal azotemia, which resulted in nonoligu joy acute tubular necrosis. Creatinine level was up to 2 and BUN was 20. The patient was found to h ave hypomagnesemia, borderline hypophosphatemia, and hypocalcemia. The patient has multiple medical problems including history of atrial fibrillation. She was seen by tool designer. She has history of hypertension, although she was found to have hypotension and she was on midodrine for blood pressure support. Review of Systems: The patient is feeling better. Physical Examination: Lungs: Diminished breath sounds at bases. Heart: S1, S2. Abdomen: Soft, benign. Extremities: No edema. Impression And Plan: 1.The patient underwent surgery for incarcerated hernia. She has atrial fibrillation with rapid lily tricular response. Continue beta-marion for rate control. 2.Acute tubular necrosis secondary to hypoperfusion, complicated by contrast-induced nephropathy. C ontinue IV fluids. Monitor electrolytes. The patient has multiple electrolyte abnormalities. Indira nue to monitor potassium level and adjust treatment with replacement. 3.Hypomagnesemia. Continue replacement. 4.Hypertension. Monitor blood pressure and adjust treatment accordingly. EB/MODL Voice ID: [id number] Report ID: [id number]
[2020-11-14] MEDS: HYDROMORPHONE HCL 1 MG/ML INJ IV PRN (23:21)
[2020-11-15] MEDS: PIPER/TAZO/NS 3.375gm 3.375 GM/100 ML BAG IVPB SCH ×3 (00:20→18:09)
[2020-11-15 05:10] LABS: Absolute Lymphocytes (CBC) 0.4 K/uL (0.7-4.9); Basophils % 0.5 % (0-1.3); Hematocrit 25.7 % (36.0-45.0); Lymphocytes % 13.5 % (15.3-44.8); RBC Red Blood Cell Count 2.78 M/uL (3.86-4.86)
[2020-11-15 05:26] LABS: Albumin 2.5 g/dL (3.4-5.0); Bilirubin Direct 0.3 mg/dL (0-0.2); Bilirubin Total 0.8 mg/dL (0.2-1.0); Magnesium 1.4 mg/dL (1.8-2.4); Phosphorus 2.6 mg/dL (2.5-4.9); Protein, Total 5.8 g/dL (6.4-8.2)
[2020-11-15] MEDS ORDERED: Magnesium Sulfate 2gm IVPB 2 G/50 ML BAG IV ONE (05:40)
[2020-11-15 05:43] LABS: Blood Morphology Comment NOT SEEN (NOT SEEN); Platelet Estimate DECR
[2020-11-15] MEDS: METOPROLOL TAR 25 MG TAB PO SCH ×2 (05:47→18:06)
[2020-11-15] MEDS: HYDROMORPHONE HCL 1 MG/ML INJ IV PRN ×2 (07:14→11:42)
[2020-11-15] MEDS: AMIODARONE HCL 200 MG TAB PO SCH ×2 (07:15→19:54)
[2020-11-15] MEDS: MIDODRINE HCL 5 MG TABLET PO SCH ×2 (07:16→19:54)
[2020-11-15] MEDS: INSULIN -REGULAR HUMAN 50 UNIT/0.5 ML ML SQ SCH ×4 (07:30→19:56)
[2020-11-15] MEDS: HYDROCODONE/APAP 5/325 MG TAB PO PRN ×2 (09:27→21:29)
[2020-11-15] MEDS: DIAZEPAM 5 MG TABLET PO PRN ×2 (10:17→21:25)
--- NOTE | 2020-11-15 12:20 | PN ---
Date of Progress Note: 11/15/2020 Subjective: The patient was admitted with incarcerated hernia, atrial fibrillation with RVR. The pa tient had surgery, had acute kidney injury secondary to contrast-induced nephropathy, poor perfusion ATN, had over volume after diuresis. Kidney function has normalized and the patient has been stable. Physical Examination: General: When I saw the patient, the patient sitting in the chair. Vital Signs: Blood pressure on the lower side 105/60, pulse tachy. Heart: S1, S2 regular. Abdomen: Soft, nontender. Extremities: No edema. Neuro: Alert. No focality. Laboratory Data: Sodium 135, potassium 4, bicarb 25, BUN 13, creatinine 1.1, GFR of 44, calcium 7.5, phos 2.6, magnesium 1.4, albumin 2.5, corrected calcium 8.7. Current Medications: The patient on, its include: 1.Zosyn. 2.Amiodarone. 3.Midodrine. 4.Insulin. Assessment And Plan: 1.Acute kidney injury, multifactorial secondary to poor perfusion acute tubular necrosis, contrast-i nduced nephropathy on the recovery phase, looked to me on the normal side. I am going to continue th e patient to monitor and we will follow up the patient. 2.Hypertension, currently blood pressure on the lower side. We will utilize blood pressure for bett er rate control. 3.Atrial fibrillation with rapid ventricular response as by Cardiology. 4.Hypomagnesemia. We will supplement. 5.Incarcerated hernia, status post repair. We will follow up with primary and Surgery. 6.COVID pneumonia. Follow up with Pulmonary. RANDELL/ALLIE Voice ID: [id number] Report ID: [id number]
[2020-11-15] MEDS: ONDANSETRON 4 MG/2 ML VIAL IV PRN ×2 (15:02→19:38)
--- NOTE | 2020-11-15 15:37 | P.PN ---
Subjective Date of Service: 11/15/20 Chief Complaint: intractable abdominal pain, ventral hernia Patient complaining of abdominal pain. She desaturate to 86% on room air. No fever. She is tolerating oxygen by nasal cannula with good oxygen saturation. Physical Examination - Vital Signs Temperature: 97.0 F Blood Pressure: 104/70 Pulse: 89 Respirations: 15 Pulse Ox (%): 88 - Physical Exam General: Alert, In no apparent distress HEENT: Mucous membr. moist/pink Neck: Supple Respiratory: Other (Nonlabored breathing.) Cardiovascular: No edema, Regular rate/rhythm, Normal S1 S2 Gastrointestinal: Normal bowel sounds, Soft and benign, Non-distended Musculoskeletal: No swelling Integumentary: Other (Ecchymosis on the skin of the lower abdomen.) Assessment And Plan Physician Review Additional Text: Physical Exam Gen: NAD, AAOx3 HEENT: normal conjunctiva, sclera anicteric CV: irregular rate/rhythm, HR: 90-110s Pulm: nonlabored on 2L NC Abd: +abdominal tenderness, surgical dressing c/d/i, abd binder in place Neuro: moves all extremities Problem List Abdominal pain due to incarcerated ventral hernia, s/p repair on 11/11 new onset /finding Afib with RVR EYAL DM2, insulin dependent HTN Anxiety Chronic pain COVID 19 infection Acute respiratory failure with hypoxia -EYAL, multifactorial, prerenal/cardiorenal possible contrast-induced nephropathy. Followed by nephrology. EYAL resolved. -s/p ventral hernia repair on 11/11, pain control and advance diet per surgery -11/13 transitioned amio drip to PO amio 400mg BID x 7 days, then 200mg daily. Rate controlled -lopressor increased, continue as BP tolerates -home valium ordered for anxiety -midodrine added by nephro for hypotension. Blood pressure is stable with the midodrine. -insulin sliding scale / accucheks -Cardiology consulted, if no improvement, may need cardioversion, however cade ent not anticoagulated - recent surgery, worsening thrombocytopenia. Heart rate is controlled now. -Adnexal mass noted on CT, unlikely to be causing issue, U/S attempted, however unable to complete due to patient's discomfort -cara escudero'cesar 11/13 -PT consulted but patient declining therapy due to pain. -patient is hypoxic on room at rest. -start prednisone, vitamin-C, zinc, vitamin D. -Ivermectin -arrange for home oxygen. Diet: ADA VTE: SCDs, thrombocytopenia Code: full
[2020-11-15 15:40] LABS: C-Reactive Protein 55.8 mg/L (<3.00); Ferritin 176.5 ng/mL (8-388)
[2020-11-15 15:45] LABS: Magnesium 1.8 mg/dL (1.8-2.4)
[2020-11-15] MEDS: HYDROMORPHONE HCL 0.5 MG/0.5 ML INJ IV PRN ×2 (15:45→19:53)
--- NOTE | 2020-11-15 15:46 | RAD REPORT ---
EXAM DESCRIPTION: [place] Single View11/15/2020 3:39 pm CLINICAL HISTORY: Cough COMPARISON: November 12, 2020 FINDINGS: The lungs appear clear of acute infiltrate. The heart is mildly enlarged IMPRESSION: No acute abnormalities displayed
[2020-11-15] MEDS ORDERED: MAGNESIUM SULFATE 1 gm IVPB 1 GM/100 ML BAG IV ONE (17:58)
[2020-11-15] MEDS: IVERMECTIN 3 MG TABLET PO SCH (18:07)
[2020-11-16] MEDS: PIPER/TAZO/NS 3.375gm 3.375 GM/100 ML BAG IVPB SCH ×3 (00:09→16:33)
[2020-11-16] MEDS: ONDANSETRON 4 MG/2 ML VIAL IV PRN (03:24)
[2020-11-16] MEDS: HYDROMORPHONE HCL 0.5 MG/0.5 ML INJ IV PRN ×2 (03:26→16:59)
[2020-11-16] MEDS: HYDROCODONE/APAP 5/325 MG TAB PO PRN ×3 (05:03→19:47)
[2020-11-16] MEDS: METOPROLOL TAR 25 MG TAB PO SCH ×2 (05:04→16:33)
[2020-11-16 05:19] LABS: Absolute Lymphocytes (CBC) 0.7 K/uL (0.7-4.9); Basophils % 0.5 % (0-1.3); Hematocrit 25.9 % (36.0-45.0); Lymphocytes % 17.5 % (15.3-44.8); MPV 10.7 fL (7.6-11.3); RBC Red Blood Cell Count 2.82 M/uL (3.86-4.86)
[2020-11-16 05:34] LABS: Albumin 2.3 g/dL (3.4-5.0); Bilirubin Total 0.9 mg/dL (0.2-1.0); Potassium 3.7 mmol/L (3.5-5.1); Protein, Total 5.9 g/dL (6.4-8.2)
[2020-11-16] MEDS: INSULIN -REGULAR HUMAN 50 UNIT/0.5 ML ML SQ SCH ×4 (07:23→20:16)
[2020-11-16] MEDS: ACETAMINOPHEN 500 MG TAB PO PRN (07:50)
[2020-11-16] MEDS: DIAZEPAM 5 MG TABLET PO PRN ×2 (07:51→19:49)
[2020-11-16] MEDS: VITAMIN D 5,000 UNIT CAP PO SCH (07:51)
[2020-11-16] MEDS: AMIODARONE HCL 200 MG TAB PO SCH ×2 (07:51→19:48)
[2020-11-16] MEDS: predniSONE 20 MG TAB PO SCH (07:51)
[2020-11-16] MEDS: ZINC SULFATE 220 MG CAP PO SCH (07:51)
[2020-11-16] MEDS: ASCORBIC ACID 500 MG TABLET PO SCH (07:51)
[2020-11-16] MEDS: MIDODRINE HCL 5 MG TABLET PO SCH (07:52)
[2020-11-16] MEDS ORDERED: POTASSIUM CL SA 10 MEQ TAB PO ONE (09:00)
[2020-11-16] MEDS: LOPERAMIDE HCL 2 MG CAPSULE PO PRN ×2 (11:03→20:15)
--- NOTE | 2020-11-16 11:21 | PN ---
Date of Progress Note: 11/16/2020 Subjective: The patient was admitted with incarcerated hernia, status post surgery. The patient had AFib with RVR. The patient had acute kidney injury secondary to prerenal/contrast induced nephropat hy. The patient was treated, kidney function has been improved significantly, nonoliguric. Physical Examination: Vital Signs: Blood pressure of 122/64, pulse of 88 and regular. Chest: Faint rales on the left base. Heart: S1, S2. Regular. Abdomen: Soft, nontender. Extremity: Trace edema. Neuro: Alert. No focality. Laboratory Data: WBC 3.8, H and H 9.1/25.9. Sodium 135, potassium 3.7, bicarb 25, BUN 12, creatinin e 1, GFR 51, calcium 7.2. Procalcitonin 0.2. Current Medications: The patient on include ivermectin, Zosyn, midodrine, amiodarone 400 b.i.d., met oprolol 25 b.i.d., Valium, zinc sulfate, loperamide, insulin. Assessment And Plan: 1.Acute kidney injury, multifactorial, secondary to poor perfusion ATN/contrast induced nephropathy, recovered, back to baseline. We will continue to monitor. 2.Hypertension, controlled, optimal. Did not use midodrine for the last 48 hours. I am going to di scontinue midodrine, continue metoprolol. 3.Atrial fibrillation with rapid ventricular rate as by Cardiology, rate controlled currently. 4.Incarcerated hernia, status post surgery. We will follow up with surgeon. 5.COVID pneumonia. Continue current treatment. We will follow up with Pulmonary. 6.Hypokalemia, hypomagnesemia. We will supplement. 7.The patient cleared from the Renal standpoint for discharge planning to follow up in the office in 2-3 weeks. RANDELL/ALLIE Voice ID: [id number] Report ID: [id number]
[2020-11-16] MEDS: HYDROMORPHONE HCL 1 MG/ML INJ IV PRN (14:00)
--- NOTE | 2020-11-16 14:17 | P.PN ---
Subjective Date of Service: 11/16/20 Chief Complaint: intractable abdominal pain, ventral hernia Patient complaining of lower abdominal pain. She is also having diarrhea. She desaturate to 86% on room air. No fever. She is tolerating oxygen by nasal cannula with good oxygen saturation. Physical Examination - Vital Signs Temperature: 98.5 F Blood Pressure: 110/55 Pulse: 99 Respirations: 16 Pulse Ox (%): 95 - Physical Exam General: Alert, In no apparent distress, Obese HEENT: Mucous membr. moist/pink Neck: JVD not distended Respiratory: Other (Nonlabored breathing) Cardiovascular: No edema, Regular rate/rhythm, Normal S1 S2 Gastrointestinal: Normal bowel sounds, Soft and benign, Distended (Mildly distended), Tenderness (Lower abdomen) Musculoskeletal: No swelling Integumentary: Other (Ecchymoses lower abdomen) Neurological: Normal strength at 5/5 x4 extr Assessment And Plan Physician Review Additional Text: Physical Exam Gen: NAD, AAOx3 HEENT: normal conjunctiva, sclera anicteric CV: irregular rate/rhythm, HR: 90-110s Pulm: nonlabored on 2L NC Abd: +abdominal tenderness, surgical dressing c/d/i, abd binder in place Neuro: moves all extremities Problem List Abdominal pain due to incarcerated ventral hernia, s/p repair on 11/11 new onset /finding Afib with RVR EYAL DM2, insulin dependent HTN Anxiety Chronic pain COVID 19 infection Acute respiratory failure with hypoxia -EYAL, multifactorial, prerenal/cardiorenal possible contrast-induced nephropathy. Followed by nephrology. EYAL resolved. -s/p ventral hernia repair on 11/11, pain control and advance diet per surgery -11/13 transitioned amio drip to PO amio 400mg BID x 7 days, then 200mg daily. Rate controlled -continue Lopressor, as BP tolerates -home valium for anxiety -midodrine added by nephro for hypotension. Blood pressure is stable with the midodrine. -insulin sliding scale / accucheks -Cardiology is following. If no improvement, may need cardioversion, however patient not anticoagulated - recent surgery, worsening thrombocytopenia. Heart rate is controlled now. -Adnexal mass noted on CT, unlikely to be causing issue, U/S attempted, however unable to complete due to patient's discomfort -cara escudero'cesar 11/13 -PT consulted but patient declining therapy due to pain. -patient is hypoxic on room at rest. -contain prednisone, vitamin-C, zinc, vitamin D. -Ivermectin -arrange for home oxygen. -no anticoagulation due to thrombocytopenia. Diet: ADA VTE: SCDs, thrombocytopenia Code: full
[2020-11-17] MEDS: PIPER/TAZO/NS 3.375gm 3.375 GM/100 ML BAG IVPB SCH ×3 (00:06→17:13)
[2020-11-17] MEDS: HYDROMORPHONE HCL 0.5 MG/0.5 ML INJ IV PRN (05:06)
[2020-11-17 05:30] LABS: Potassium 3.8 mmol/L (3.5-5.1)
[2020-11-17 05:45] LABS: Absolute Lymphocytes (CBC) 0.5 K/uL (0.7-4.9); Basophils % 0.2 % (0-1.3); Hematocrit 27.6 % (36.0-45.0); Lymphocytes % 16.7 % (15.3-44.8); MPV 11.1 fL (7.6-11.3); RBC Red Blood Cell Count 2.99 M/uL (3.86-4.86)
[2020-11-17] MEDS ORDERED: POTASSIUM 25 MEQ EFFERV TAB PO ONE (05:53)
[2020-11-17] MEDS: METOPROLOL TAR 25 MG TAB PO SCH ×2 (06:00→17:13)
[2020-11-17] MEDS: INSULIN -REGULAR HUMAN 50 UNIT/0.5 ML ML SQ SCH ×4 (06:55→17:31)
[2020-11-17] MEDS: HYDROCODONE/APAP 5/325 MG TAB PO PRN ×3 (06:56→17:31)
[2020-11-17] MEDS: ASCORBIC ACID 500 MG TABLET PO SCH (08:32)
[2020-11-17] MEDS: ZINC SULFATE 220 MG CAP PO SCH (08:32)
[2020-11-17] MEDS: VITAMIN D 5,000 UNIT CAP PO SCH (08:32)
[2020-11-17] MEDS: AMIODARONE HCL 200 MG TAB PO SCH ×2 (08:33→19:37)
[2020-11-17] MEDS: predniSONE 20 MG TAB PO SCH (08:33)
[2020-11-17] MEDS: LOPERAMIDE HCL 2 MG CAPSULE PO PRN ×2 (10:48→19:38)
[2020-11-17] MEDS: ACETAMINOPHEN 500 MG TAB PO PRN (11:41)
--- NOTE | 2020-11-17 14:29 | P.PN ---
Subjective Date of Service: 11/17/20 Chief Complaint: intractable abdominal pain, ventral hernia Patient doing better today. She was able to participate in physical therapy, she was up from bed and ambulated a bit. She continued to have loose stools, and complaining of lower abdominal pain. No fever. She is tolerating oxygen by nasal cannula with good oxygen saturation. Physical Examination - Vital Signs Temperature: 98.9 F Blood Pressure: 104/57 Pulse: 79 Respirations: 17 Pulse Ox (%): 94 - Physical Exam General: In no apparent distress, Obese Neck: JVD not distended Respiratory: Other (Nonlabored breathing) Cardiovascular: No edema, Regular rate/rhythm, Normal S1 S2 Gastrointestinal: Normal bowel sounds, Soft and benign, Tenderness (Lower abdomen) Musculoskeletal: No swelling, No tenderness Integumentary: Other (Ecchymosis lower abdomen) Neurological: Normal strength at 5/5 x4 extr, Cranial nerves 3-12 intact Assessment And Plan Physician Review Additional Text: Problem List Abdominal pain due to incarcerated ventral hernia, s/p repair on 11/11 new onset /finding Afib with RVR EYAL DM2, insulin dependent HTN Anxiety Chronic pain COVID 19 infection Acute respiratory failure with hypoxia -EYAL, multifactorial, prerenal/cardiorenal possible contrast-induced nephropathy. Followed by nephrology. EYAL resolved. -s/p ventral hernia repair on 11/11, continue pain management. -11/13 transitioned amio drip to PO amio 400mg BID x 7 days, then 200mg daily. Rate controlled -continue Lopressor, as BP tolerates -home valium for anxiety -midodrine for hypotension. Blood pressure is stable with the midodrine. -insulin sliding scale / accucheks -Cardiology is following. Patient not anticoagulated - recent surgery, thrombocytopenia. Heart rate is controlled now. -Adnexal mass noted on CT, unlikely to be causing issue, U/S attempted, however unable to complete due to patient's discomfort. -obtain ultrasound as an outpatient -cara ramos 11/13 -Patient now tolerating PT -patient is hypoxic on room at rest. -contain prednisone, vitamin-C, zinc, vitamin D. -Ivermectin -arrange for home oxygen. -no anticoagulation due to thrombocytopenia. Diet: ADA VTE: SCDs, thrombocytopenia Code: full Disposition: Home with home health.
--- NOTE | 2020-11-17 14:58 | RAD REPORT ---
EXAM DESCRIPTION: RAD - Abdomen 1 View (KUB) - 11/17/2020 2:21 pm CLINICAL HISTORY: ongoing pain s/p surgery COMPARISON: Abdomen Pelvis Wo Contrast dated 11/09/2020 FINDINGS: Bowel gas pattern is non-specific. No obstruction, free air or pneumatosis. Calcification in the lower right pelvis matches the CT study and is believed be part of an exophytic calcified fib roid. No significant bony findings IMPRESSION: KUB examination shows no acute or suspicious finding.
[2020-11-17] MEDS: IVERMECTIN 3 MG TABLET PO SCH (17:13)
[2020-11-17] MEDS: DIAZEPAM 5 MG TABLET PO PRN (19:38)
[2020-11-17] MEDS: ENSURE HIGH PROTEIN 237 ML CAN PO SCH (19:38)
[2020-11-18] MEDS: PIPER/TAZO/NS 3.375gm 3.375 GM/100 ML BAG IVPB SCH ×3 (00:04→16:00)
[2020-11-18] MEDS: HYDROCODONE/APAP 5/325 MG TAB PO PRN ×4 (00:06→21:37)
[2020-11-18] MEDS ORDERED: HYDROMORPHONE HCL 1 MG/ML INJ IV ONE (04:33)
[2020-11-18] MEDS: ACETAMINOPHEN 500 MG TAB PO PRN ×2 (04:43→11:01)
[2020-11-18] MEDS: ONDANSETRON 4 MG/2 ML VIAL IV PRN ×4 (04:44→21:38)
[2020-11-18] MEDS ORDERED: HYDROMORPHONE HCL 0.5 MG/0.5 ML INJ ONE (05:00)
[2020-11-18] MEDS: METOPROLOL TAR 25 MG TAB PO SCH ×2 (05:01→17:08)
[2020-11-18 05:26] LABS: RBC Red Blood Cell Count 3.19 M/uL (3.86-4.86)
[2020-11-18 05:27] LABS: Absolute Lymphocytes (CBC) 0.7 K/uL (0.7-4.9); Basophils % 0.3 % (0-1.3); Hematocrit 29.4 % (36.0-45.0); Lymphocytes % 12.7 % (15.3-44.8); MPV 10.9 fL (7.6-11.3)
[2020-11-18 05:32] LABS: Potassium 3.8 mmol/L (3.5-5.1)
[2020-11-18] MEDS ORDERED: POTASSIUM CL SA 10 MEQ TAB PO ONE (05:33)
[2020-11-18] MEDS: INSULIN -REGULAR HUMAN 50 UNIT/0.5 ML ML SQ SCH ×4 (07:30→20:22)
--- NOTE | 2020-11-18 07:32 | P.PN ---
Subjective Date of Service: 11/18/20 Chief Complaint: intractable abdominal pain, ventral hernia Subjective: No new changes no complaints of shortness of breath. Physical Examination - Vital Signs Temperature: 100.5 F Blood Pressure: 133/85 Pulse: 132 Respirations: 22 Pulse Ox (%): 94 - Physical Exam General: Other (appears as her stated age) HEENT: Atraumatic, Normocephalic Neck: Supple, JVD not distended Respiratory: Normal air movement Cardiovascular: No rubs, No murmurs Gastrointestinal: Soft and benign, No guarding Musculoskeletal: No clubbing, No warmth Integumentary: No warmth Neurological: Normal speech, Normal tone Lymphatics: No axilla or inguinal lymphadenopathy Urinary: Other (no bladder distention) External genitalia: Deferred Rectal: Deferred Assessment And Plan - Plan # EYAL, multifactorial, possible contrast-induced nephropathy/prerenal secondary to poor perfusion, ATN, superimposed with atrial fibrillation w/ RVR, & hypotension Resolved Monitor I/O, renal panel # Afib Mngt per Cardiology # Incarcerated abdominal/ventral hernia S/p repair w/ mesh on 11/11 Per Surgery service # Htn Controlled Cont metoprolol # DM Mngt per primary team # COVID PNA Per ICU team #Dispo May dc from renal standpoint, follow up in the office in 2-3 weeks
[2020-11-18] MEDS: VITAMIN D 5,000 UNIT CAP PO SCH (07:46)
[2020-11-18] MEDS: predniSONE 20 MG TAB PO SCH (07:46)
[2020-11-18] MEDS: AMIODARONE HCL 200 MG TAB PO SCH ×2 (07:46→20:22)
[2020-11-18] MEDS: ZINC SULFATE 220 MG CAP PO SCH (07:46)
[2020-11-18] MEDS: ASCORBIC ACID 500 MG TABLET PO SCH (07:47)
[2020-11-18] MEDS: ENSURE HIGH PROTEIN 237 ML CAN PO SCH ×2 (07:49→20:22)
[2020-11-18] MEDS: LOPERAMIDE HCL 2 MG CAPSULE PO PRN ×3 (09:41→20:23)
--- NOTE | 2020-11-18 13:54 | P.DS ---
Admission Date: 11/10/20 Discharge Date: 11/18/20 Disposition: DC HOME/HOME HEALTH CARE Discharge Condition: FAIR Reason for Admission: intractable abdominal pain, ventral hernia Brief History of Present Illness: 79yo F, PMH: ventral hernia, insulin dependent DM2, HTN, GERD, Anxiety who was referred to the ED by Dr. Wade from his office due to severe, progressively worsening abdominal pain. Patient reported severe pain at her hernia site. She has a known ventral hernia and was to undergo repair a few months ago but patient refused on day of surgery due to anxiety. In the ED, bloodwork revealed: hypokalemia, no leukocytosis. CT abd/pelvis: 8cm ventral hernia with 2cm neck, with fluid and fat stranding Patient admitted for pain management and to undergo ventral hernia repair with Dr. Wade. Hospital Course: -patient developed EYAL, multifactorial, prerenal/cardiorenal possible contrast- induced nephropathy. Followed by nephrology. EYAL resolved with IV fluid. -s/p ventral hernia repair on 11/11. -she developed rapid atrial fibrillation. She is metoprolol at home. -she was put on amiodarone drip which was later transition to oral amiodarone. Cardiology Dr. Garcia consulted who assisted with management -11/13 transitioned amio drip to PO amio 400mg BID x 7 days, then 200mg daily. Rate controlled -continued Lopressor. -discontinue her antihypertensives-amlodipine and Losartan -continued home valium for anxiety -had midodrine for hypotension. She was weaned off midodrine. -blood sugar managed with insulin sliding scale / accucheks -Patient not anticoagulated due to recent surgery and thrombocytopenia. -Adnexal mass noted on CT, unlikely to be causing issue, U/S attempted, however unable to complete due to patient's discomfort. -obtain transvaginal ultrasound as an outpatient -had cara which was dc'd on 11/13 -Patient tolerated PT and was able to transfer with assistance. -she tested positive for COVID 19. Chest x-ray showed no acute abnormality. -patient is hypoxic on room at rest. -treated with prednisone, vitamin-C, zinc, vitamin D for COVID 19 infection -Ivermectin for COVID 19 infection. -home oxygen arranged. -no anticoagulation due to thrombocytopenia. -patient discharged in family advised the patient need to live with family for now. Home health prescribed on discharge. Vital Signs/Physical Exam: Temp Pulse Resp BP Pulse Ox 98.9 F 108 H 21 H 123/80 94 11/18/20 13:24 11/18/20 13:24 11/18/20 13:24 11/18/20 13:24 11/18/20 13:24 General: Alert, In no apparent distress, Oriented x3 Neck: JVD not distended Respiratory: Other (Nonlabored breathing.) Cardiovascular: No edema, Irregular heart rate/rhythm Gastrointestinal: Normal bowel sounds, Soft and benign, Non-distended, Tenderness (Mild tenderness in the lower abdomen) Musculoskeletal: No swelling Integumentary: Other (Ecchymosis lower abdominal wall) Neurological: Other (No focal motor deficit.) Laboratory Data at Discharge: WBC 5.20 K/uL (4.3-10.9) D 11/18/20 04:31 Hgb 10.0 g/dL (12.0-15.0) L 11/18/20 04:31 Hct 29.4 % (36.0-45.0) L 11/18/20 04:31 Plt Count 70 K/uL (152-406) L 11/18/20 04:31 PT 12.0 SECONDS (9.5-12.5) 11/09/20 15:10 INR 1.04 11/09/20 15:10 APTT 24.6 SECONDS (24.3-36.9) 11/09/20 15:10 Sodium 136 mmol/L (136-145) 11/18/20 04:31 Potassium 3.8 mmol/L (3.5-5.1) 11/18/20 04:31 BUN 12 mg/dL (7-18) 11/18/20 04:31 Creatinine 0.92 mg/dL (0.55-1.3) 11/18/20 04:31 Glucose 99 mg/dL (74-106) 11/18/20 04:31 Phosphorus 2.6 mg/dL (2.5-4.9) 11/15/20 04:43 Magnesium 1.8 mg/dL (1.8-2.4) 11/15/20 14:51 Magnesium Cancelled 11/15/20 14:51 Total Bilirubin 0.9 mg/dL (0.2-1.0) 11/16/20 04:59 AST 33 U/L (15-37) 11/16/20 04:59 ALT 19 U/L (12-78) 11/16/20 04:59 Alkaline Phosphatase 80 U/L (45-117) 11/16/20 04:59 Home Medications: Aspirin Chewable [Aspirin Chewable*] 81 mg PO DAILY 06/23/20 Diazepam [Valium] 5 mg PO DAILY 06/23/20 Dicyclomine HCl 20 mg PO DAILY 06/23/20 Levothyroxine [Synthroid*] 125 mcg PO [id number] 06/23/20 Meclizine HCl 25 mg PO DAILY 06/23/20 Omeprazole [Prilosec] 40 mg PO DAILY 06/23/20 Pravastatin Sodium 40 mg PO DAILY 06/23/20 Promethazine Tab [Phenergan*] 12.5 mg PO Q6HP PRN 06/23/20 Amiodarone HCl [Cordarone*] 400 mg PO BID #80 tab 11/18/20 Ascorbic Acid [Vitamin C*] 500 mg PO DAILY #30 tablet 11/18/20 Cholecalciferol (Vitamin D3) [Vitamin D 5,000 IU Cap*] 5,000 unit PO DAILY #30 cap 11/18/20 Ensure High Protein 237 ml PO BID #60 can 11/18/20 Hydrocodone 5/APAP 325 [[place] 5/325*] 1 tab PO Q6H PRN #20 tab 11/18/20 Insulin Aspart [Novolog Flexpen] 15 unit SQ TID #1 cart 11/18/20 Loperamide [Imodium*] 2 mg PO Q4H PRN #15 cap 11/18/20 Metoprolol Tartrate [Lopressor*] 25 mg PO BID 6AM 6PM #60 tab 11/18/20 Zinc Sulfate [Zinc Sulfate*] 220 mg PO DAILY #30 cap 11/18/20 predniSONE [Prednisone*] 20 mg PO DAILY #7 tab 11/18/20 New Medications: Amiodarone HCl [Cordarone*] 400 mg PO BID #80 tab Ensure High Protein 237 ml PO BID #60 can Loperamide [Imodium*] 2 mg PO Q4H PRN #15 cap PRN Reason: Diarrhea Metoprolol Tartrate [Lopressor*] 25 mg PO BID 6AM 6PM #60 tab Hydrocodone 5/APAP 325 [[place] 5/325*] 1 tab PO Q6H PRN #20 tab PRN Reason: Pain Scale 5-7 (Moderate) Insulin Aspart [Novolog Flexpen] 15 unit SQ TID #1 cart predniSONE [Prednisone*] 20 mg PO DAILY #7 tab Ascorbic Acid [Vitamin C*] 500 mg PO DAILY #30 tablet Cholecalciferol (Vitamin D3) [Vitamin D 5,000 IU Cap*] 5,000 unit PO DAILY #30 cap Zinc Sulfate [Zinc Sulfate*] 220 mg PO DAILY #30 cap Diet: ADA Activity: Fall precautions Followup: Jones Ross MD [ACTIVE - CAN ADMIT] - 1 Week Omari Wade MD [ACTIVE - CAN ADMIT] - 1 Week SOPHIA CORTES [Primary Care Provider] - 1-2 Weeks Time spent managing pt's care (in minutes): 40
--- NOTE | 2020-11-18 19:27 | P.PN ---
Subjective Date of Service: 11/18/20 Chief Complaint: intractable abdominal pain, ventral hernia Patient doing better today. No issues overnight. No fever. She is tolerating oxygen by nasal cannula with good oxygen saturation. Physical Examination - Vital Signs Temperature: 98.2 F Blood Pressure: 133/76 Pulse: 86 Respirations: 20 Pulse Ox (%): 96 - Physical Exam General: Alert, In no apparent distress, Oriented x3 Neck: JVD not distended Respiratory: Other (Nonlabored breathing.) Cardiovascular: No edema, Regular rate/rhythm, Normal S1 S2 Gastrointestinal: Soft and benign, Non-distended, Tenderness (Lower abdomen) Neurological: Normal strength at 5/5 x4 extr Assessment And Plan Physician Review Additional Text: Problem List Abdominal pain due to incarcerated ventral hernia, s/p repair on 11/11 new onset /finding Afib with RVR EYAL DM2, insulin dependent HTN Anxiety Chronic pain COVID 19 infection Acute respiratory failure with hypoxia -EYAL, multifactorial, prerenal/cardiorenal possible contrast-induced nephropathy. Followed by nephrology. EYAL resolved. -s/p ventral hernia repair on 11/11, continue pain management. -amio drip 11/13, transitioned to PO amiodarone. Currently rate controlled -continue Lopressor, as BP tolerates -home valium for anxiety -blood pressure stable off midodrine -insulin sliding scale / accucheks -seen by cardiology. Patient not anticoagulated - recent surgery, thrombocytopenia. -Adnexal mass noted on CT, unlikely to be causing issue, U/S attempted, however unable to complete due to patient's discomfort. -obtain ultrasound as an outpatient -cara escudero'cesar 11/13 -Patient now tolerating PT -patient is hypoxic on room at rest. -contain prednisone, vitamin-C, zinc, vitamin D. -status post Ivermectin -arrange for home oxygen. -no anticoagulation due to thrombocytopenia. Diet: ADA VTE: SCDs, thrombocytopenia Code: full Disposition: Patient's since refused to come for patient stating they are too weak to take care of her. She lives alone and needs significant assistance for transfer. She needs to live with somebody until her functional status improve. Recommend skilled rehab.
[2020-11-18] MEDS: DIAZEPAM 5 MG TABLET PO PRN (22:20)
[2020-11-19] MEDS: PIPER/TAZO/NS 3.375gm 3.375 GM/100 ML BAG IVPB SCH ×2 (00:18→08:27)
[2020-11-19] MEDS: ONDANSETRON 4 MG/2 ML VIAL IV PRN (02:44)
[2020-11-19] MEDS: LOPERAMIDE HCL 2 MG CAPSULE PO PRN ×2 (02:44→13:36)
[2020-11-19] MEDS: HYDROCODONE/APAP 5/325 MG TAB PO PRN ×4 (02:44→22:45)
[2020-11-19] MEDS: METOPROLOL TAR 25 MG TAB PO SCH ×2 (03:10→16:36)
[2020-11-19] MEDS ORDERED: ACETAMINOPHEN 325 MG TABLET PO ONE (03:15)
[2020-11-19] MEDS ORDERED: ACETAMINOPHEN 325 MG TABLET ONE (03:42)
[2020-11-19 04:04] VITALS: BMI 40.5
[2020-11-19] MEDS ORDERED: METOPROLOL TARTRATE 5 MG/5 ML INJ IV STA (04:15)
[2020-11-19 06:04] LABS: Potassium 3.6 mmol/L (3.5-5.1)
[2020-11-19 06:06] LABS: Magnesium 1.2 mg/dL (1.8-2.4)
[2020-11-19] MEDS ORDERED: MAGNESIUM SULFATE 1 gm IVPB 1 GM/100 ML BAG IV ONE ×2 (06:07→22:30)
[2020-11-19] MEDS ORDERED: Magnesium Sulfate 2gm IVPB 2 G/50 ML BAG IV ONE ×2 (06:16→13:43)
[2020-11-19] MEDS: INSULIN -REGULAR HUMAN 50 UNIT/0.5 ML ML SQ SCH ×4 (07:30→19:53)
[2020-11-19] MEDS ORDERED: POTASSIUM PHOS IN 0.9 % NACL 15 MMOL/250 ML BAG IV ONE (07:52)
[2020-11-19] MEDS: VITAMIN D 5,000 UNIT CAP PO SCH (08:09)
[2020-11-19] MEDS: predniSONE 20 MG TAB PO SCH (08:09)
[2020-11-19] MEDS: AMIODARONE HCL 200 MG TAB PO SCH ×2 (08:09→19:51)
[2020-11-19] MEDS: ENSURE HIGH PROTEIN 237 ML CAN PO SCH ×2 (08:09→19:52)
[2020-11-19] MEDS: ASCORBIC ACID 500 MG TABLET PO SCH (08:09)
[2020-11-19] MEDS: ZINC SULFATE 220 MG CAP PO SCH (08:09)
--- NOTE | 2020-11-19 12:23 | P.PN ---
Subjective Date of Service: 11/19/20 Chief Complaint: intractable abdominal pain, ventral hernia Patient now requiring high-flow oxygen. She states her pain is much better She is able to transfer with support. . Physical Examination - Vital Signs Temperature: 98.8 F Blood Pressure: 108/58 Pulse: 94 Respirations: 24 Pulse Ox (%): 92 - Physical Exam General: Alert, In no apparent distress, Oriented x3, Obese HEENT: Mucous membr. moist/pink Neck: JVD not distended Respiratory: Other (Nonlabored breathing) Cardiovascular: No edema, Regular rate/rhythm, Normal S1 S2 Gastrointestinal: Normal bowel sounds, Soft and benign, Non-distended Musculoskeletal: No erythema Integumentary: Other (Low abdominal wall bruising much better today) Neurological: Normal strength at 5/5 x4 extr Assessment And Plan Physician Review Additional Text: Problem List Abdominal pain due to incarcerated ventral hernia, s/p repair on 11/11 new onset /finding Afib with RVR EYAL DM2, insulin dependent HTN Anxiety Chronic pain COVID 19 infection Acute respiratory failure with hypoxia -EYAL, multifactorial, prerenal/cardiorenal possible contrast-induced nephropathy. Followed by nephrology. EYAL resolved. -s/p ventral hernia repair on 11/11, pain is much better today. -amio drip 11/13, transitioned to PO amiodarone. Currently rate controlled -continue Lopressor, as BP tolerates -home valium for anxiety -blood pressure stable off midodrine -insulin sliding scale / accucheks -seen by cardiology. Patient not anticoagulated - recent surgery, thrombocytopenia. -Adnexal mass noted on CT, unlikely to be causing issue, U/S attempted, however unable to complete due to patient's discomfort. -obtain ultrasound as an outpatient -cara ramos 11/13 -Patient now tolerating PT -patient now requiring high-flow oxygen. -continue vitamin-C, zinc, vitamin D. -IV steroid -status post Ivermectin -wean oxygen as tolerated. -no anticoagulation due to thrombocytopenia. Diet: ADA VTE: SCDs, thrombocytopenia Code: full Disposition: Home with home health once patient wean down to oxygen by nasal cannula.
[2020-11-19] MEDS: ACETAMINOPHEN 500 MG TAB PO PRN (14:59)
--- NOTE | 2020-11-19 15:42 | P.PN ---
Subjective Date of Service: 11/19/20 Chief Complaint: intractable abdominal pain, ventral hernia Subjective Pt with COVID 19 , had EYAL Today o overnight events low Mg , replaced cont to require High flow O2 Physical exam general: AAOX3, NAD , obese Neck; Supple, No elevated JVD chest decreased air entry hear: RRR, normal S1,2 no murmur or rub Chest: CTAB, no rales or wheezes Abdomen: Soft , Nt Extremities trace edema # EYAL, multifactorial, possible contrast-induced nephropathy/prerenal secondary to poor perfusion, ATN, superimposed with atrial fibrillation w/ RVR, & hypotension Resolved Monitor I/O, renal panel # Afib Mngt per Cardiology # Incarcerated abdominal/ventral hernia S/p repair w/ mesh on 11/11 Per Surgery service # Htn Controlled Cont metoprolol # DM Mngt per primary team # COVID PNA Per ICU team Total time spent 35 min Physical Examination - Vital Signs Temperature: 98.8 F Blood Pressure: 108/58 Pulse: 94 Respirations: 24 Pulse Ox (%): 92
[2020-11-19] MEDS: METHYLPREDNISOLONE 40 MG INJ IV SCH (19:53)
[2020-11-20] MEDS: ONDANSETRON 4 MG/2 ML VIAL IV PRN ×2 (04:10→09:50)
[2020-11-20 05:26] LABS: Absolute Lymphocytes (CBC) 0.4 K/uL (0.7-4.9); Basophils % 0.1 % (0-1.3); Hematocrit 28.1 % (36.0-45.0); Lymphocytes % 12.9 % (15.3-44.8); MPV 11.9 fL (7.6-11.3); RBC Red Blood Cell Count 3.06 M/uL (3.86-4.86)
[2020-11-20 05:48] LABS: Magnesium 2.2 mg/dL (1.8-2.4); Phosphorus 2.7 mg/dL (2.5-4.9); Potassium 4.3 mmol/L (3.5-5.1)
[2020-11-20] MEDS: METOPROLOL TAR 25 MG TAB PO SCH ×2 (05:58→18:03)
[2020-11-20] MEDS: ACETAMINOPHEN 500 MG TAB PO PRN ×3 (06:28→19:33)
[2020-11-20] MEDS: ZINC SULFATE 220 MG CAP PO SCH (08:28)
[2020-11-20] MEDS: METHYLPREDNISOLONE 40 MG INJ IV SCH ×2 (08:28→19:33)
[2020-11-20] MEDS: AMIODARONE HCL 200 MG TAB PO SCH ×2 (08:28→19:32)
[2020-11-20] MEDS: INSULIN -REGULAR HUMAN 50 UNIT/0.5 ML ML SQ SCH ×4 (08:29→20:56)
[2020-11-20] MEDS: VITAMIN D 5,000 UNIT CAP PO SCH (08:29)
[2020-11-20] MEDS: ENSURE HIGH PROTEIN 237 ML CAN PO SCH ×2 (08:29→20:54)
[2020-11-20] MEDS: ASCORBIC ACID 500 MG TABLET PO SCH (08:29)
[2020-11-20] MEDS: LOPERAMIDE HCL 2 MG CAPSULE PO PRN (09:45)
[2020-11-20] MEDS: HYDROCODONE/APAP 5/325 MG TAB PO PRN ×3 (09:45→22:55)
[2020-11-20 10:37] LABS: Blood Morphology Comment NOT SEEN (NOT SEEN); Platelet Estimate DECR; White Blood Cell Scan OK (OK)
[2020-11-20] MEDS: DIAZEPAM 5 MG TABLET PO PRN (12:25)
[2020-11-20] MEDS: GUAIFENESIN/CODEINE 5ML UCUP PO PRN ×2 (13:47→20:45)
[2020-11-21] MEDS: DIAZEPAM 5 MG TABLET PO PRN ×2 (00:32→13:44)
[2020-11-21] MEDS: GUAIFENESIN/CODEINE 5ML UCUP PO PRN ×2 (03:45→11:44)
[2020-11-21] MEDS: HYDROCODONE/APAP 5/325 MG TAB PO PRN ×4 (05:08→23:02)
[2020-11-21] MEDS: METOPROLOL TAR 25 MG TAB PO SCH ×2 (05:14→16:28)
[2020-11-21 06:09] LABS: Absolute Lymphocytes (CBC) 0.5 K/uL (0.7-4.9); Basophils % 0.2 % (0-1.3); Hematocrit 28.7 % (36.0-45.0); Lymphocytes % 7.2 % (15.3-44.8); MPV 11.6 fL (7.6-11.3); RBC Red Blood Cell Count 3.16 M/uL (3.86-4.86)
[2020-11-21 06:16] LABS: Potassium 4.6 mmol/L (3.5-5.1)
[2020-11-21] MEDS: LOPERAMIDE HCL 2 MG CAPSULE PO PRN ×2 (06:17→10:19)
[2020-11-21] MEDS: INSULIN -REGULAR HUMAN 50 UNIT/0.5 ML ML SQ SCH ×4 (08:35→20:11)
[2020-11-21] MEDS: VITAMIN D 5,000 UNIT CAP PO SCH (08:39)
[2020-11-21] MEDS: METHYLPREDNISOLONE 40 MG INJ IV SCH ×2 (08:39→20:02)
[2020-11-21] MEDS: ASCORBIC ACID 500 MG TABLET PO SCH (08:39)
[2020-11-21] MEDS: ZINC SULFATE 220 MG CAP PO SCH (08:39)
[2020-11-21] MEDS: AMIODARONE HCL 200 MG TAB PO SCH ×2 (08:40→20:02)
[2020-11-21] MEDS: ENSURE HIGH PROTEIN 237 ML CAN PO SCH ×2 (08:40→20:42)
[2020-11-21] MEDS: ACETAMINOPHEN 500 MG TAB PO PRN (09:02)
--- NOTE | 2020-11-21 13:51 | P.PN ---
Subjective Date of Service: 11/21/20 Chief Complaint: intractable abdominal pain, ventral hernia Patient having diarrhea. She is still requiring high-flow oxygen Patient has been reluctant to participate in PT or transfer. . Physical Examination - Vital Signs Temperature: 97.4 F Blood Pressure: 124/80 Pulse: 79 Respirations: 32 Pulse Ox (%): 94 - Physical Exam General: Alert, In no apparent distress Respiratory: Other (Nonlabored breathing) Cardiovascular: No edema, Regular rate/rhythm, Normal S1 S2 Gastrointestinal: Soft and benign, Non-distended Musculoskeletal: No swelling Neurological: Normal strength at 5/5 x4 extr Assessment And Plan Physician Review Additional Text: Problem List Abdominal pain due to incarcerated ventral hernia, s/p repair on 11/11 new onset /finding Afib with RVR EYAL DM2, insulin dependent HTN Anxiety Chronic pain COVID 19 infection Acute respiratory failure with hypoxia -EYAL, multifactorial, prerenal/cardiorenal possible contrast-induced nephropathy. Followed by nephrology. EYAL resolved. -s/p ventral hernia repair on 11/11, pain has improved. -amio drip 11/13, transitioned to PO amiodarone. Currently rate controlled -continue Lopressor, as BP tolerates -blood pressure stable off midodrine -insulin sliding scale / accucheks -seen by cardiology. Patient not anticoagulated - recent surgery, thrombocytopenia. -Adnexal mass noted on CT, unlikely to be causing issue, U/S attempted, however unable to complete due to patient's discomfort. -obtain ultrasound as an outpatient -cara ramos 11/13 -Patient now tolerating PT -patient now requiring high-flow oxygen. -continue vitamin-C, zinc, vitamin D. -IV steroid -status post Ivermectin -wean oxygen as tolerated. -consult pulmonary -no anticoagulation due to thrombocytopenia. Diet: ADA VTE: SCDs, thrombocytopenia Code: full Disposition: Home with home health once patient wean down to oxygen by nasal cannula.
[2020-11-21] MEDS: ONDANSETRON 4 MG/2 ML VIAL IV PRN (17:44)
--- NOTE | 2020-11-21 21:26 | PN ---
Date of Progress Note: 11/21/2020 Chief Complaint: COVID pneumonia. The patient with acute kidney injury. electrolytes ar e stabilized. The patient had low magnesium and this was replaced. The patient continues to require high-flow oxygen therapy. Review of Systems: No new changes. Physical Examination: Chest: Decreased air entry. Heart: S1, S2. Abdomen: Soft. Extremities: No edema. Impression And Plan: 1.Acute kidney injury, patient improved. The patient developed acute kidney injury due to contrast- induced nephropathy and prerenal azotemia secondary to renal hypoperfusion in the setting of sepsis. The patient has superimposed acute tubular necrosis, and there is history in atrial fibrillation wit h rapid ventricular response which created hypotension, subsequently in acute kidney injur y. Currently, the patient remains hemodynamically stable and urine output is adequate. Electrolytes are stable. 2.Atrial fibrillation, rate is controlled. 3.Incarcerated abdominal ventral hernia status post repair on November 12. The patient will follow up w [facility] Critical Team. 4.Hypertension, controlled. Continue metoprolol. 5.Diabetes mellitus. Continue insulin. Monitor blood glucose. 6.COVID pneumonia, per ICU team. EB/MODL Voice ID: [id number] Report ID: [id number]
[2020-11-22] MEDS: DIAZEPAM 5 MG TABLET PO PRN ×2 (01:35→13:20)
[2020-11-22] MEDS: ONDANSETRON 4 MG/2 ML VIAL IV PRN ×3 (03:28→13:20)
[2020-11-22 03:56] LABS: Absolute Lymphocytes (CBC) 0.4 K/uL (0.7-4.9); Lymphocytes % 5.3 % (15.3-44.8); MPV 10.7 fL (7.6-11.3); RBC Red Blood Cell Count 3.04 M/uL (3.86-4.86)
[2020-11-22 04:05] LABS: Potassium 4.9 mmol/L (3.5-5.1)
[2020-11-22] MEDS: METOPROLOL TAR 25 MG TAB PO SCH ×2 (05:54→17:08)
[2020-11-22] MEDS: HYDROCODONE/APAP 5/325 MG TAB PO PRN ×3 (05:54→19:15)
--- NOTE | 2020-11-22 05:58 | P.PN ---
Subjective Date of Service: 11/22/20 Chief Complaint: intractable abdominal pain, ventral hernia Subjective: Other (headache and abdominal pain overnight. worse with cough. slight nausea as well. +BM partially formed this morning. feels short of breath with movement, still requiring HFNC) Review of Systems 10-point ROS is otherwise unremarkable Physical Examination - Vital Signs Temperature: 98.2 F Blood Pressure: 123/69 Pulse: 81 Respirations: 24 Pulse Ox (%): 91 Assessment & Plan Physician Review Additional Text: Physical Exam Gen: NAD, AAOx3 HEENT: normal conjunctiva, sclera anicteric CV: irregularly irregular rhythm, trace edema bilateral lower extremities Pulm: nonlabored on HFNC, +Dry cough Abd: soft, mild tenderness along surgical incisions, no rebound Neuro: AAOx3, moves all extremities Problem List Abdominal pain, incarcerated ventral hernia, s/p repair on 11/11 new onset /finding Afib with RVR EYAL, resolved DM2, insulin dependent HTN Anxiety Chronic pain COVID 19 infection Acute respiratory failure with hypoxia secondary to COVID-19 infection -EYAL, resolved - multifactorial, prerenal/cardiorenal possible contrast-induced nephropathy. Followed by nephrology -s/p ventral hernia repair on 11/11, pain has improved. -amio drip 11/13, transitioned to PO amiodarone. Currently rate controlled, intermittently due to pain -continue Lopressor, as BP tolerates; stable off midodrine -insulin sliding scale / accucheks -seen by cardiology. Patient not anticoagulated - recent surgery, thrombocytopenia. -Adnexal mass noted on CT, unlikely to be causing issue, U/S attempted, however unable to complete due to patient's discomfort. obtain ultrasound as an outpatient -cara ramos 11/13 -refused PT yesterday, discussed importance if can tolerate -patient now requiring high-flow oxygen. -continue vitamin-C, zinc, vitamin D, IV steroid, s/p Ivermectin -wean O2 as tolerated -Pulm consulted -no anticoagulation due to Thrombocytopenia. Diet: ADA VTE: SCDs, thrombocytopenia Code: full Disposition: Home with home health once patient wean down to oxygen by nasal cannula. anticipate hospitalization for several more days Time Spent Managing Pts Care (In Minutes): 40
[2020-11-22] MEDS: INSULIN -REGULAR HUMAN 50 UNIT/0.5 ML ML SQ SCH ×5 (08:20→22:03)
[2020-11-22] MEDS: ENSURE HIGH PROTEIN 237 ML CAN PO SCH ×2 (09:00→19:13)
[2020-11-22] MEDS: HYDROMORPHONE HCL 0.5 MG/0.5 ML INJ IV PRN ×2 (09:15→17:50)
[2020-11-22] MEDS: ASCORBIC ACID 500 MG TABLET PO SCH (09:43)
[2020-11-22] MEDS: AMIODARONE HCL 200 MG TAB PO SCH (09:43)
[2020-11-22] MEDS: VITAMIN D 5,000 UNIT CAP PO SCH (09:43)
[2020-11-22] MEDS: METHYLPREDNISOLONE 40 MG INJ IV SCH ×2 (09:44→19:21)
[2020-11-22] MEDS: ZINC SULFATE 220 MG CAP PO SCH (09:44)
--- NOTE | 2020-11-22 10:31 | RAD REPORT ---
EXAM DESCRIPTION: RAD - Chest Single View - 11/22/2020 10:20 am CLINICAL HISTORY: Hypoxia, covered COMPARISON: 11/05/2020 TECHNIQUE: AP portable chest image was obtained . FINDINGS: Interval development of widespread bilateral airspace disease which is confluent in some a reas of the lung, including the right upper lobe. Cardiomegaly. No fractures are identified. IMPRESSION: Interval development of widespread airspace disease which could reflect multifocal pneum onia, including Covid-19 given the clinical history.
--- NOTE | 2020-11-22 11:18 | PN ---
Date of Progress Note: 11/22/2020 Subjective: The patient was admitted with acute kidney injury secondary to contrast-induced nephropa thy, poor perfusion, ATN. The patient had incarcerated hernia, status post repair, tolerated the pro cedure. The patient developed AFib with RVR. The patient also got infected with COVID pneumonia. C omplaining of shortness of breath today. No chest pain. Still slightly tachycardic. Objective: Vital Signs: When I saw the patient, blood pressure 124/69, pulse tachycardia. Heart: S1, S2. Tachycardic. No murmur. Pulse up to 110. Abdomen: Soft, nontender. Extremities: No edema. Neuro: Alert. No focality. The patient on high-flow O2, up to 70%, saturating around 90% to 94%. Laboratory Data: WBC 7.1, H and H 9.6/28, platelet of 81. Sodium 134, potassium 4.9, bicarb 28, BUN 19, creatinine 0.7, calcium of 8. Chest x-ray pending. Current Medications: The patient on include: 1.Amiodarone. 2.Metoprolol. 3.Zinc sulfate. 4.Zofran. 5.Insulin. 6.Solu-Medrol. 7.Vitamin C. 8.Cholecalciferol. Assessment And Plan: 1.Acute kidney injury secondary to contrast-induced nephropathy, poor perfusion, acute tubular necro sis, recovered, resolved, look to me slightly on the over volume side. We will get chest x-ray for b sin evaluation of the fluid status and we will decide about dosing with Lasix. 2.Hypertension. Currently, blood pressure on the lower side. Continue p.r.n. midodrine. 3.Atrial fibrillation with RVR. We will follow up with Cardiology. Rate still not controlled. 4.COVID pneumonia with the status of hypercoagulopathy because of COVID and the patient had atrial f ibrillation. The patient recently had surgery for incarcerated hernia. It is almost 10 days after s urgery. We will discuss with surgeon about anticoagulation even though the patient slightly thromboc ytopenic, but platelet trending up. 5.Hyponatremia, mostly dilutional. We will diurese. 6.Hypomagnesemia, resolved. MA/MODL Voice ID: [id number] Report ID: [id number]
--- NOTE | 2020-11-22 12:12 | P.CNS ---
Date of Consult: 11/22/20 Reason for Consult: Respiratory failure from farias virus Chief Complaint: Respiratory failure History of Present Illness: Patient is 79 years of age multiple medical problems admitted here for abdominal pain/patient had an operation for her hernia developed progressive respiratory distress tested positive for farias virus she had exposure from her son chest x- ray consistent with farias virus pneumonia requiring high concentrations of oxygen Allergies ciprofloxacin [From Cipro] Allergy (Verified 06/23/20 09:44) Hives gentamicin Allergy (Verified 06/23/20 09:45) Hives Iodinated Contrast Media Allergy (Verified 06/23/20 09:22) Hives nitrofurantoin Allergy (Verified 06/23/20 09:44) Hives Sulfa (Sulfonamide Antibiotics) Allergy (Verified 06/23/20 09:45) Hives Home Medications: Aspirin Chewable [Aspirin Chewable*] 81 mg PO DAILY 06/23/20 Diazepam [Valium] 5 mg PO DAILY 06/23/20 Dicyclomine HCl 20 mg PO DAILY 06/23/20 Levothyroxine [Synthroid*] 125 mcg PO [id number] 06/23/20 Meclizine HCl 25 mg PO DAILY 06/23/20 Omeprazole [Prilosec] 40 mg PO DAILY 06/23/20 Pravastatin Sodium 40 mg PO DAILY 06/23/20 Promethazine Tab [Phenergan*] 12.5 mg PO Q6HP PRN 06/23/20 Amiodarone HCl [Cordarone*] 400 mg PO BID #80 tab 11/18/20 Ascorbic Acid [Vitamin C*] 500 mg PO DAILY #30 tablet 11/18/20 Cholecalciferol (Vitamin D3) [Vitamin D 5,000 IU Cap*] 5,000 unit PO DAILY #30 cap 11/18/20 Ensure High Protein 237 ml PO BID #60 can 11/18/20 Hydrocodone 5/APAP 325 [[place] 5/325*] 1 tab PO Q6H PRN #20 tab 11/18/20 Insulin Aspart [Novolog Flexpen] 15 unit SQ TID #1 cart 11/18/20 Loperamide [Imodium*] 2 mg PO Q4H PRN #15 cap 11/18/20 Metoprolol Tartrate [Lopressor*] 25 mg PO BID 6AM 6PM #60 tab 07/02/21 Zinc Sulfate [Zinc Sulfate*] 220 mg PO DAILY #30 cap 11/18/20 predniSONE [Prednisone*] 20 mg PO DAILY #7 tab 11/18/20 - Past Medical/Surgical History -: DM2, insulin dependent -: Hypertension -: b/l lower extremity edema -: chronic pain -: hypothyroidism -: anxiety -: prior ventral hernia repair - Social History Alcohol use: No CD- Drugs: No Caffeine use: Yes Place of Residence: Home Review of Systems General: Weakness Respiratory: Shortness of Breath Physical Examination Temp Pulse Resp BP Pulse Ox 98.2 F 81 24 H 123/69 90 L 11/22/20 09:17 11/22/20 09:17 11/22/20 09:45 11/22/20 09:17 11/22/20 09:45 - Problems (1) Acute respiratory failure due to severe acute respiratory syndrome coronavirus 2 (SARS-CoV-2) infection Current Visit: Yes Status: Acute Plan: Patient is 79 years of age recent exposure to farias virus admitted with abdominal pain he also has AFib developed progressive respiratory failure chest x-ray shows bilateral infiltrates chemistries reviewed patient is mildly thrombocytopenic is in AFib on high doses of amiodarone currently on sat 70% FiO2 continue with high-flow, trial of Bacitinib the possibility of amiodarone toxicity
[2020-11-22 12:46] LABS: C-Reactive Protein 17.4 mg/L (<3.00); Ferritin 294.4 ng/mL (8-388)
[2020-11-22] MEDS: GUAIFENESIN/CODEINE 5ML UCUP PO PRN (13:20)
[2020-11-22 14:58] LABS: ALT/SGPT 22 U/L (12-78); AST/SGOT 34 U/L (15-37)
[2020-11-22] MEDS ORDERED: ASPIRIN 325 MG TAB PO ONE (16:00)
[2020-11-22] MEDS: LOPERAMIDE HCL 2 MG CAPSULE PO PRN (17:07)
[2020-11-22] MEDS: VERAPAMIL HCL 80 MG TABLET PO SCH (19:15)
[2020-11-22] MEDS ORDERED: INSULIN -REGULAR HUMAN 50 UNIT/0.5 ML ML IV ONE (19:20)
[2020-11-23] MEDS ORDERED: METOPROLOL TAR 25 MG TAB PO SCH ×2 (00:55→18:00)
[2020-11-23] MEDS: DIAZEPAM 5 MG TABLET PO PRN ×2 (01:08→13:41)
[2020-11-23] MEDS: HYDROCODONE/APAP 5/325 MG TAB PO PRN ×4 (02:58→23:10)
[2020-11-23] MEDS: ONDANSETRON 4 MG/2 ML VIAL IV PRN ×3 (03:01→20:26)
[2020-11-23 05:27] LABS: Albumin 2.6 g/dL (3.4-5.0); C-Reactive Protein 31.9 mg/L (<3.00); Ferritin 323.4 ng/mL (8-388); Magnesium 1.8 mg/dL (1.8-2.4); Potassium 4.9 mmol/L (3.5-5.1); Protein, Total 6.5 g/dL (6.4-8.2)
[2020-11-23] MEDS ORDERED: D50W 25 GM/50 ML SYRINGE IV PRN (07:09)
[2020-11-23] MEDS ORDERED: GLUCAGON 1 MG/VIAL IM PRN (07:09)
--- NOTE | 2020-11-23 07:21 | P.PN ---
Subjective Date of Service: 11/23/20 Chief Complaint: Respiratory failure Subjective: No new changes (feels slightly better, needing more hfnc, bradycardic last night briefly to 40. +BMx2 yesterday, up to chair for 2-3 hrs yesterday. transitioned from amio to verapamil last night) Review of Systems 10-point ROS is otherwise unremarkable Physical Examination - Vital Signs Temperature: 96.8 F Blood Pressure: 136/76 Pulse: 74 Respirations: 23 Pulse Ox (%): 88 Assessment & Plan Physician Review Additional Text: Physical Exam Gen: NAD, AAOx3 HEENT: normal conjunctiva, sclera anicteric CV: irregularly irregular rhythm, trace edema bilateral lower extremities Pulm: nonlabored on HFNC, +Dry cough Abd: soft, mild tenderness along surgical incisions, no rebound Neuro: moves all extremities, generalized weakness Problem List Abdominal pain, incarcerated ventral hernia, s/p repair on 11/11 new onset /finding Afib with RVR EYAL, resolved DM2, insulin dependent HTN Anxiety Chronic pain COVID 19 infection Acute respiratory failure with hypoxia secondary to COVID-19 infection -EYAL, resolved - multifactorial, prerenal/cardiorenal possible contrast-induced nephropathy. Followed by nephrology -s/p ventral hernia repair on 11/11, continue abdominal binder -amio drip 11/13, transitioned to PO amiodarone, then to verapamil evening of 11/22 due to worsening hypoxia and CXR findings, concern / can't rule out amio toxicity -cardiology following -discontinued metoprolol 11/23 -insulin sliding scale / accucheks, lantus - titrate for better glucose control -Adnexal mass noted on CT, unlikely to be causing issue, U/S attempted, however unable to complete due to patient's discomfort. obtain ultrasound as an outpatient -cara escudero'cesar 11/13 -oxygen requirement remains high, wean as tolerated -continue vitamin-C, zinc, vitamin D, IV steroid, s/p Ivermectin; pulm consulted - ordered Barcitinimab -wean O2 as tolerated -no anticoagulation due to Thrombocytopenia. started 325mg aspirin on 11/22 Diet: ADA VTE: SCDs, thrombocytopenia Code: full Disposition: Home with home health once patient wean down to oxygen by nasal cannula. anticipate hospitalization for several more days Time Spent Managing Pts Care (In Minutes): 45
--- NOTE | 2020-11-23 07:45 | P.PN ---
Subjective Date of Service: 11/23/20 Chief Complaint: Respiratory failure She reports having SOB. No urinary complaints. Physical Examination - Vital Signs Temperature: 96.8 F Blood Pressure: 136/76 Pulse: 74 Respirations: 23 Pulse Ox (%): 88 - Physical Exam General: Mild distress HEENT: Atraumatic, Normocephalic Neck: Supple Respiratory: Normal air movement Gastrointestinal: Non-distended Neurological: Normal speech, Normal tone Assessment And Plan - Plan # EYAL, multifactorial, possible contrast-induced nephropathy/prerenal secondary to poor perfusion, ATN, superimposed with atrial fibrillation w/ RVR, & hypotension Resolved Monitor I/O, renal panel # Afib Rate controlled Not on therapeutic anticoagulation due to recent surgery and thrombocytopenia Mngt per Cardiology # Incarcerated abdominal/ventral hernia S/p repair w/ mesh on 11/11 Mngt per Surgery service # Htn Controlled Cont metoprolol # DM Mngt per primary team # COVID PNA On high flow oxygen support Per ICU team
[2020-11-23] MEDS ORDERED: INSULIN GLARGINE 100 UNITS/ML SQ SCH (08:00)
[2020-11-23] MEDS: ENSURE HIGH PROTEIN 237 ML CAN PO SCH ×2 (09:00→21:35)
[2020-11-23] MEDS ORDERED: AMIODARONE HCL 200 MG TAB PO SCH (09:00)
[2020-11-23] MEDS: ASPIRIN 325 MG TAB PO SCH (09:00)
[2020-11-23] MEDS: METHYLPREDNISOLONE 40 MG INJ IV SCH ×2 (09:24→20:26)
[2020-11-23] MEDS: ASCORBIC ACID 500 MG TABLET PO SCH (09:24)
[2020-11-23] MEDS: VITAMIN D 5,000 UNIT CAP PO SCH (09:24)
[2020-11-23] MEDS: ZINC SULFATE 220 MG CAP PO SCH (09:24)
[2020-11-23] MEDS: VERAPAMIL HCL 80 MG TABLET PO SCH ×3 (09:25→20:27)
[2020-11-23] MEDS: INSULIN -REGULAR HUMAN 50 UNIT/0.5 ML ML SQ SCH ×4 (09:28→20:27)
[2020-11-23 09:30] LABS: Absolute Lymphocytes (CBC) 0.4 K/uL (0.7-4.9); Basophils % 0.1 % (0-1.3); Hematocrit 30.4 % (36.0-45.0); Lymphocytes % 3.7 % (15.3-44.8); MPV 11.3 fL (7.6-11.3); RBC Red Blood Cell Count 3.29 M/uL (3.86-4.86)
[2020-11-23 09:39] LABS: Blood Morphology Comment NOT SEEN (NOT SEEN); Platelet Estimate DECR; White Blood Cell Scan OK (OK)
[2020-11-23] MEDS: HYDROMORPHONE HCL 0.5 MG/0.5 ML INJ IV PRN ×3 (09:53→20:26)
--- NOTE | 2020-11-23 11:59 | P.PN ---
Subjective Date of Service: 11/23/20 Chief Complaint: Respiratory failure Condition stable not doing well still requiring high concentration of oxygen Review of Systems General: Weakness Respiratory: Shortness of Breath Physical Examination - Vital Signs Temperature: 96.8 F Blood Pressure: 136/76 Pulse: 74 Respirations: 26 Pulse Ox (%): 88 Assessment & Plan - Problems (Diagnosis) (1) Acute respiratory failure due to severe acute respiratory syndrome coronavirus 2 (SARS-CoV-2) infection Current Visit: Yes Status: Acute Plan: Respiratory failure condition stable still requiring high concentrations of oxygen renal function improving blood sugar is elevated normal white count thrombocytopenia is improving patient has had ivermectin patient has worsening disease bilateral infiltrates borderline saturation prognosis poor
--- NOTE | 2020-11-23 13:00 | EKG ---
Test Date: 2020-11-22 Test Time: 22:41:36 Arabic Professor: RT-O MEASUREMENT RESULTS: Intervals: Rate: 50 ME: QRSD: 86 QT: 498 QTc: 454 Donnelly: P: ME: QRS: 45 T: 127 INTERPRETIVE STATEMENTS: Atrial fibrillation with slow ventricular response ST & T wave abnormality, consider anterolateral ischemia or digitalis effect Abnormal ECG Compared to ECG 11/09/2020 16:24:52 ST (T wave) deviation now present Possible ischemia now present Ventricular premature complex(es) no longer present Myocardial infarct finding no longer present Electronically Signed On 11-23-20 12:59:02 CDT by Robert Garcia
[2020-11-23] MEDS ORDERED: D50W 25 GM/50 ML VIAL IV PRN (15:00)
[2020-11-23] MEDS: GUAIFENESIN/CODEINE 5ML UCUP PO PRN ×2 (16:28→23:10)
[2020-11-24] MEDS: DIAZEPAM 5 MG TABLET PO PRN ×2 (00:37→22:51)
[2020-11-24] MEDS: HYDROMORPHONE HCL 0.5 MG/0.5 ML INJ IV PRN ×4 (02:14→23:57)
[2020-11-24] MEDS: GUAIFENESIN/CODEINE 5ML UCUP PO PRN ×2 (05:02→11:47)
[2020-11-24] MEDS: HYDROCODONE/APAP 5/325 MG TAB PO PRN ×3 (05:02→20:30)
[2020-11-24 05:21] LABS: Absolute Lymphocytes (CBC) 0.3 K/uL (0.7-4.9); Basophils % 0.3 % (0-1.3); Hematocrit 27.6 % (36.0-45.0); Lymphocytes % 3.1 % (15.3-44.8); MPV 10.6 fL (7.6-11.3)
[2020-11-24 05:35] LABS: Albumin 2.7 g/dL (3.4-5.0); C-Reactive Protein 40.7 mg/L (<3.00); Ferritin 373.7 ng/mL (8-388); Phosphorus 3.1 mg/dL (2.5-4.9); Potassium 5.2 mmol/L (3.5-5.1)
--- NOTE | 2020-11-24 05:41 | PN ---
Date of Progress Note: 11/22/2020 I have been following Ms. Ash intermittently. She had come in with ventral hernia requiring urge nt repair. Came in with atrial fibrillation of unknown duration. We had put her on amiodarone. She actually had a very well controlled rate, but continued to be in atrial fibrillation at a rate of 80 , but apparently has had some respiratory difficulties. It is Dr. Ross's opinion that the patien t may be having amiodarone toxicity. I believe since amiodarone has not cardioverted her to sinus rh ythm, I think, we should stick with rate control. I think beta-blockers maybe an option v erapamil 80 mg 1 p.o. t.i.d. instead of the amiodarone. The case was discussed with Dr. Navas. Her last blood pressure was 136/76, last pulse was 74, still in atrial fibrillation. She is still on hig h-flow oxygen delivery with an O2 of 95%. Her creatinine remained normal. Her hemoglobin 9.9. She still has issues with diabetes. She remains on multiple medication including insulin, aspirin, stero id, metoprolol. As stated earlier, I would stop the metoprolol, stop the amiodarone, stop verapamil, and continue to follow her as needed. ISRAEL/ALLIE Voice ID: [id number] Report ID: [id number]
--- NOTE | 2020-11-24 06:34 | P.PN ---
Subjective Date of Service: 11/24/20 Chief Complaint: Respiratory failure Subjective: No new changes (up to 100% FIO2 on HFNC, down to 80% this morning. voiding (incontinent), BM 2 days ago, eating better.) Review of Systems 10-point ROS is otherwise unremarkable Physical Examination - Vital Signs Temperature: 96.7 F Blood Pressure: 131/71 Pulse: 91 Respirations: 21 Pulse Ox (%): 93 Assessment & Plan Physician Review Additional Text: Physical Exam Gen: NAD, AAOx3 HEENT: normal conjunctiva, sclera anicteric CV: irregularly irregular rhythm, trace edema bilateral lower extremities Pulm: nonlabored on HFNC, +Dry cough Abd: soft, mild tenderness along surgical incisions, no rebound Neuro: moves all extremities, generalized weakness Problem List Abdominal pain, incarcerated ventral hernia, s/p repair on 11/11 new onset /finding Afib with RVR EYAL, resolved DM2, insulin dependent HTN Anxiety Chronic pain COVID 19 infection Acute respiratory failure with hypoxia secondary to COVID-19 infection -EYAL, resolved - multifactorial, prerenal/cardiorenal possible contrast-induced nephropathy. Followed by nephrology -may benefit from some diuresis -s/p ventral hernia repair on 11/11, continue abdominal binder -amio drip 11/13, transitioned to PO amiodarone, then to verapamil evening of 11/22 due to worsening hypoxia and CXR findings, concern / can't rule out amio toxicity -cardiology following, -discontinued metoprolol 11/23 -insulin sliding scale / accucheks, lantus - titrate for better glucose control - further increase today -Adnexal mass noted on CT, unlikely to be causing issue, U/S attempted, however unable to complete due to patient's discomfort. obtain ultrasound as an outpatient -cara escudero'cesar 11/13 -oxygen requirement remains high, wean as tolerated -continue vitamin-C, zinc, vitamin D, IV steroid, s/p Ivermectin; pulm consulted - ordered Barcitinimab -wean O2 as tolerated -no anticoagulation due to Thrombocytopenia. started 325mg aspirin on 11/22 Diet: ADA VTE: SCDs, thrombocytopenia Code: full Disposition: Home with home health once patient wean down to oxygen by nasal cannula. anticipate hospitalization for several more days Time Spent Managing Pts Care (In Minutes): 40
[2020-11-24 06:50] LABS: Arterial Blood Carboxyhemoglob 1.5 % (0-1.5); Blood Gas Oxyhemoglobin 83.3 % (94-97); Blood O2 Saturation 85.7 % (92-98.5)
--- NOTE | 2020-11-24 07:53 | RAD REPORT ---
EXAM DESCRIPTION: RAD - Chest Single View - 11/24/2020 6:10 am CLINICAL HISTORY: hypoxia, COVID COMPARISON: Portable November 22 TECHNIQUE: AP portable chest image was obtained 11/24/2020 6:10 am . FINDINGS: Bilateral extensive interstitial and alveolar opacities are present sparing the left apex. There is partial resolution of pneumonia in the right upper lung field. Cardiomegaly is present. No measurable pleural effusion and no pneumothorax. No acute bony abnormality seen. No acute aortic find ings suspected. IMPRESSION: Extensive bilateral pneumonia showing partial clearing of the right upper lobe.
[2020-11-24] MEDS ORDERED: INSULIN GLARGINE 100 UNITS/ML SQ SCH (08:00)
[2020-11-24] MEDS: ASCORBIC ACID 500 MG TABLET PO SCH (09:01)
[2020-11-24] MEDS: VITAMIN D 5,000 UNIT CAP PO SCH (09:01)
[2020-11-24] MEDS: METHYLPREDNISOLONE 40 MG INJ IV SCH ×2 (09:01→20:20)
[2020-11-24] MEDS: ENSURE HIGH PROTEIN 237 ML CAN PO SCH ×2 (09:01→20:21)
[2020-11-24] MEDS: ASPIRIN 325 MG TAB PO SCH (09:01)
[2020-11-24] MEDS: ZINC SULFATE 220 MG CAP PO SCH (09:01)
[2020-11-24] MEDS: INSULIN -REGULAR HUMAN 50 UNIT/0.5 ML ML SQ SCH ×4 (09:02→20:41)
[2020-11-24] MEDS: VERAPAMIL HCL 80 MG TABLET PO SCH ×3 (09:03→20:20)
[2020-11-24] MEDS ORDERED: D50W 25 GM/50 ML SYRINGE IV PRN (16:26)
[2020-11-24] MEDS: INSULIN GLARGINE 100 UNITS/ML SQ SCH (20:40)
[2020-11-24] MEDS: ONDANSETRON 4 MG/2 ML VIAL IV PRN (20:40)
--- NOTE | 2020-11-24 21:38 | PN ---
Date of Progress Note: 11/24/2020 Chief Complaint: Acute kidney injury, prerenal azotemia, uncontrolled diabetes, hyperkalemia. Subjective: The patient has COVID pneumonia. She remains on high oxygen flow. She remains in ICU. She is hemodynamically stable. The patient denies nausea or vomiting. Denies hematuria or dysuria. Physical Examination: General: The patient is not in acute distress, normal respiratory effort. Neck: Supple. Extremities: Legs with no edema. Laboratory Data: Sodium 132, potassium 5.2, chloride 99, CO2 29, BUN 39, creatinine 1.37, glucose 33 0, calcium 7.9, phosphorus 3.1, magnesium 2.0, albumin 2.7. Impression And Plan: 1.Acute kidney injury with prerenal azotemia, nonoliguric. The patient primarily was found to have acute kidney injury of multifactorial etiology in setting of sepsis. The patient has underlying cont rast-induced nephropathy and ATN superimposed with renal hypoperfusion related prerenal azotemia in t he setting of atrial fibrillation with rapid ventricular response and hypotension. Acute kidney inju ry stabilized today. BUN and creatinine level are elevated due to hyperglycemia, uncontrolled diabet es. The patient was found to have borderline hyperkalemia. Plan is to start low potassium diet and re-evaluate potassium level. There is no metabolic acidosis present. 2.Incarcerated abdominal ventral hernia, status post repair with mesh in November 12. Management per Winter rgical team. 3.Hypertension, controlled. 4.Acute kidney injury. Avoid nephrotoxic medication. Continue to monitor fluid balance and advance insulin treatment for diabetes mellitus to prevent hyperglycemia. EB/MODL Voice ID: [id number] Report ID: [id number]
[2020-11-25] MEDS: HYDROCODONE/APAP 5/325 MG TAB PO PRN ×3 (02:38→22:13)
[2020-11-25 05:50] LABS: Absolute Lymphocytes (CBC) 0.3 K/uL (0.7-4.9); Basophils % 0.2 % (0-1.3); Lymphocytes % 2.8 % (15.3-44.8); MPV 11.2 fL (7.6-11.3); RBC Red Blood Cell Count 2.99 M/uL (3.86-4.86)
--- NOTE | 2020-11-25 06:02 | P.PN ---
Subjective Date of Service: 11/25/20 Chief Complaint: Respiratory failure She reports SOB not worse today. Physical Examination - Vital Signs Temperature: 97.3 F Blood Pressure: 129/78 Pulse: 82 Respirations: 19 Pulse Ox (%): 93 - Physical Exam General: Mild distress HEENT: Atraumatic, Normocephalic Neck: Supple, JVD not distended Respiratory: Diminished Cardiovascular: No rubs, No murmurs Gastrointestinal: Soft and benign Musculoskeletal: No warmth Integumentary: No warmth Neurological: Normal tone Urinary: Other (No bladder distention) Assessment And Plan - Plan # EYAL, multifactorial, possible contrast-induced nephropathy/prerenal secondary to poor perfusion, ATN, superimposed with atrial fibrillation w/ RVR, & hypotension Resolved Monitor I/O, renal panel # Afib Rate controlled Not on therapeutic anticoagulation due to recent surgery and thrombocytopenia Mngt per Cardiology # Incarcerated abdominal/ventral hernia S/p repair w/ mesh on 11/11 Mngt per Surgery service # Htn Controlled Cont metoprolol # Pseudohyponatremia 2/2 hyperglycemia Monitor # Hyperkalemia Ordered NS IV bolus + IV lasix today # DM Mngt per primary team # COVID PNA On high flow oxygen support; wean off as able Per ICU team
[2020-11-25 06:14] LABS: Albumin 2.7 g/dL (3.4-5.0); C-Reactive Protein 25.2 mg/L (<3.00); Ferritin 378.1 ng/mL (8-388); Phosphorus 3.2 mg/dL (2.5-4.9); Potassium 5.2 mmol/L (3.5-5.1)
--- NOTE | 2020-11-25 08:03 | P.PN ---
Subjective Date of Service: 11/25/20 Chief Complaint: Respiratory failure Subjective: Improving (feels better, edematous, without any new complaints, abd pain with coughing, heart rate better controlled) Review of Systems 10-point ROS is otherwise unremarkable Physical Examination - Vital Signs Temperature: 97.3 F Blood Pressure: 129/78 Pulse: 82 Respirations: 19 Pulse Ox (%): 93 Assessment & Plan Physician Review Additional Text: Physical Exam Gen: NAD, AAOx3 HEENT: normal conjunctiva, sclera anicteric CV: irregularly irregular rhythm, 1+ edema bilateral lower extremities to thighs Pulm: non labored on HFNC, +Dry cough Abd: soft, mild tenderness along surgical incisions, no rebound Neuro: moves all extremities, generalized weakness Problem List Abdominal pain, incarcerated ventral hernia, s/p repair on 11/11 new onset /finding Afib with RVR EYAL, resolved DM2, insulin dependent HTN Anxiety Chronic pain COVID 19 infection Acute hypoxemic respiratory failure secondary to COVID 19 pneumonia Abdominal pain, incarcerated ventral hernia, s/p repair on 11/11 -s/p ventral hernia repair on 11/11, continue abdominal binder -abdominal exam benign, doing well, tolerating diet, +BM EYAL, edema -EYAL, resolved - multifactorial, prerenal/cardiorenal possible contrast-induced nephropathy. Followed by nephrology -pt with edema in b/l legs, may benefit from some gentle diuresis, will discuss with nephrology Acute hypoxemic respiratory failure secondary to COVID 19 pneumonia -improving, weaning O2 -still requiring significant levels of oxygen supplementation -continue high-dose steroids, vitamin supplementation, s/p ivermectin- -no anticoagulation due to thrombocytopenia, started aspirin 325mg on 11/22 new onset, finding Afib w/ RVR -amio drip 11/13, transitioned to PO amiodarone, then dc'd amio and started verapamil evening of 11/22 due to worsening hypoxia and CXR findings, concern / c an't rule out amio toxicity -cardiology following -better rate control, pt without palpitations/chest pain DM2, insulin dependent -insulin sliding scale / accucheks, lantus - titrate for better glucose control - further increase today -Adnexal mass noted on CT, unlikely to be causing issue, U/S attempted, however unable to complete due to patient's discomfort. obtain ultrasound as an outpatient Diet: ADA VTE: SCDs, thrombocytopenia Code: full Disposition: Home with home health once patient wean down to oxygen by nasal cannula. anticipate hospitalization for several more days Time Spent Managing Pts Care (In Minutes): 45
[2020-11-25] MEDS: HYDROMORPHONE HCL 0.5 MG/0.5 ML INJ IV PRN ×2 (08:26→15:55)
[2020-11-25] MEDS: ASPIRIN 325 MG TAB PO SCH (08:26)
[2020-11-25] MEDS: VITAMIN D 5,000 UNIT CAP PO SCH (08:26)
[2020-11-25] MEDS: METHYLPREDNISOLONE 40 MG INJ IV SCH ×2 (08:26→22:17)
[2020-11-25] MEDS: GUAIFENESIN/CODEINE 5ML UCUP PO PRN (08:26)
[2020-11-25] MEDS: ZINC SULFATE 220 MG CAP PO SCH (08:26)
[2020-11-25] MEDS: ASCORBIC ACID 500 MG TABLET PO SCH (08:26)
[2020-11-25] MEDS: INSULIN GLARGINE 100 UNITS/ML SQ SCH ×2 (08:27→22:16)
[2020-11-25] MEDS: INSULIN -REGULAR HUMAN 50 UNIT/0.5 ML ML SQ SCH ×4 (08:27→22:16)
[2020-11-25] MEDS: ENSURE HIGH PROTEIN 237 ML CAN PO SCH ×3 (08:28→22:16)
[2020-11-25] MEDS: VERAPAMIL HCL 80 MG TABLET PO SCH ×3 (08:28→22:14)
[2020-11-25] MEDS: LOPERAMIDE HCL 2 MG CAPSULE PO PRN (13:33)
[2020-11-25] MEDS ORDERED: NA CHLORIDE 0.9% 250 ML IV PRN (14:48)
[2020-11-25] MEDS ORDERED: FUROSEMIDE 40 MG/4 ML VIAL IV ONE (14:49)
[2020-11-25] MEDS: ACETAMINOPHEN 500 MG TAB PO PRN (15:55)
[2020-11-25] MEDS: ONDANSETRON 4 MG/2 ML VIAL IV PRN (23:03)
[2020-11-25] MEDS: DIAZEPAM 5 MG TABLET PO PRN (23:03)
[2020-11-26] MEDS: HYDROMORPHONE HCL 0.5 MG/0.5 ML INJ IV PRN ×2 (03:16→21:04)
[2020-11-26] MEDS ORDERED: HYDROMORPHONE HCL 1 MG/ML INJ IV ONE (04:04)
[2020-11-26] MEDS ORDERED: HYDROMORPHONE HCL 1 MG/ML INJ ONE (04:35)
[2020-11-26] MEDS: ONDANSETRON 4 MG/2 ML VIAL IV PRN (05:04)
[2020-11-26] MEDS: GUAIFENESIN/CODEINE 5ML UCUP PO PRN ×2 (05:04→22:28)
[2020-11-26 05:16] LABS: Absolute Lymphocytes (CBC) 0.2 K/uL (0.7-4.9); Basophils % 0.3 % (0-1.3); Hematocrit 29.7 % (36.0-45.0); Lymphocytes % 1.8 % (15.3-44.8); MPV 10.8 fL (7.6-11.3); RBC Red Blood Cell Count 3.17 M/uL (3.86-4.86)
[2020-11-26 05:33] LABS: Albumin 2.8 g/dL (3.4-5.0); Bilirubin Direct 0.4 mg/dL (0-0.2); Bilirubin Total 1.2 mg/dL (0.2-1.0); C-Reactive Protein 17.3 mg/L (<3.00); Ferritin 381.3 ng/mL (8-388); Magnesium 1.8 mg/dL (1.8-2.4); Phosphorus 2.8 mg/dL (2.5-4.9); Potassium 4.7 mmol/L (3.5-5.1); Protein, Total 6.5 g/dL (6.4-8.2)
--- NOTE | 2020-11-26 05:58 | P.PN ---
Subjective Date of Service: 11/26/20 Chief Complaint: Respiratory failure Subjective: No new changes (Feeling well, still requiring high levels of oxygen, up to the chair at bedside this morning, trials either from pain medication. Reports upper abdominal pain from coughing. Eating well, no nausea/vomiting) Review of Systems 10-point ROS is otherwise unremarkable Physical Examination - Vital Signs Temperature: 97.6 F Blood Pressure: 122/52 Pulse: 94 Respirations: 17 Pulse Ox (%): 88 Assessment & Plan Physician Review Additional Text: Physical Exam Gen: NAD, AAOx3 HEENT: normal conjunctiva, sclera anicteric CV: irregularly irregular rhythm, 1+ edema bilateral lower extremities to thighs Pulm: non labored on HFNC, +Dry cough Abd: soft, mild tenderness along surgical incisions, no rebound Neuro: moves all extremities, generalized weakness Problem List Abdominal pain, incarcerated ventral hernia, s/p repair on 11/11 new onset /finding Afib with RVR EYAL, resolved DM2, insulin dependent HTN Anxiety Chronic pain COVID 19 infection Acute hypoxemic respiratory failure secondary to COVID 19 pneumonia Abdominal pain, incarcerated ventral hernia, s/p repair on 11/11 -s/p ventral hernia repair on 11/11, continue abdominal binder -doing well, tolerating diet -+flatus, last BM documented ~2-3 days ago -colace BID EYAL, edema -EYAL, improved - multifactorial, prerenal/cardiorenal possible contrast-induced nephropathy. Followed by nephrology -pt with edema in b/l legs, may benefit from some gentle diuresis, will discuss with nephrology -did receive IVF and Lasix yesterday for hyperkalemia Acute hypoxemic respiratory failure secondary to COVID 19 pneumonia -patient appears more comfortable, oxygen requirement back and forth from 70% to 100% FIO2 -still requiring significant levels of oxygen supplementation -seroids reduced on 11/25, continue vitamin supplementation, s/p ivermectin- -no anticoagulation due to thrombocytopenia, started aspirin 325mg on 11/22 new onset, finding Afib w/ RVR -amio drip 11/13, then to PO amiodarone, then dc'd amio and started verapamil evening of 11/22 due to worsening hypoxia and CXR findings, concern / can't rule out amio toxicity -cardiology following -better rate control, pt without palpitations/chest pain DM2, insulin dependent -insulin sliding scale / accucheks, lantus - titrate for better glucose control -should improve with decreasing steroids as well -Adnexal mass noted on CT, unlikely to be causing issue, U/S attempted, however unable to complete due to patient's discomfort. obtain ultrasound as an outpatient Diet: ADA VTE: SCDs, thrombocytopenia Code: full Disposition: Home with home health once patient wean down to oxygen by nasal cannula. anticipate hospitalization for several more days discussed with patient regarding slow improvement, may be appropriate for SNF vs LTAC given her oxygen need and weakness, she said we'll see how things go in the next few days Time Spent Managing Pts Care (In Minutes): 35
[2020-11-26] MEDS: METHYLPREDNISOLONE 40 MG INJ IV SCH ×2 (08:18→22:19)
[2020-11-26] MEDS: VERAPAMIL HCL 80 MG TABLET PO SCH ×3 (08:18→22:18)
[2020-11-26] MEDS: ASCORBIC ACID 500 MG TABLET PO SCH (08:18)
[2020-11-26] MEDS: ZINC SULFATE 220 MG CAP PO SCH (08:18)
[2020-11-26] MEDS: VITAMIN D 5,000 UNIT CAP PO SCH (08:18)
[2020-11-26] MEDS: ASPIRIN 325 MG TAB PO SCH (08:18)
--- NOTE | 2020-11-26 08:18 | RAD REPORT ---
EXAM DESCRIPTION: RAD - Chest Single View - 11/26/2020 7:49 am CLINICAL HISTORY: SOB, COVID positive COMPARISON: November 24November 22 TECHNIQUE: AP portable chest image was obtained 11/26/2020 7:49 am . FINDINGS: Extensive bilateral pneumonia pattern showing slight improvement in the left lung field. I nterval change is minimal. Slightly greater density in the mid right lung field is probably more tech nical in nature than a true progression. Cardiac silhouette remains prominent. Trachea is midline. No measurable pleural effusion and no pneu mothorax. No acute bony abnormality seen. No acute aortic findings suspected. IMPRESSION: Extensive bilateral pneumonia changes are not substantially different from November 24 imagin g. There may be some very minimal improvement in the left lung field.
[2020-11-26] MEDS: INSULIN -REGULAR HUMAN 50 UNIT/0.5 ML ML SQ SCH ×4 (08:19→22:20)
[2020-11-26] MEDS: INSULIN GLARGINE 100 UNITS/ML SQ SCH ×2 (08:19→22:20)
[2020-11-26] MEDS: ENSURE HIGH PROTEIN 237 ML CAN PO SCH ×3 (08:20→22:21)
[2020-11-26] MEDS ORDERED: MAGNESIUM SULFATE 1 gm IVPB 1 GM/100 ML BAG IV ONE (09:00)
[2020-11-26] MEDS ORDERED: FUROSEMIDE 40 MG/4 ML VIAL IV ONE (12:00)
[2020-11-26] MEDS: DOCUSATE NA 100 MG CAP PO SCH ×2 (12:47→22:19)
[2020-11-26] MEDS: HYDROCODONE/APAP 5/325 MG TAB PO PRN ×2 (14:03→22:29)
[2020-11-26] MEDS: DIAZEPAM 5 MG TABLET PO PRN (14:03)
--- NOTE | 2020-11-26 16:06 | RAD REPORT ---
EXAM DESCRIPTION: RAD - Chest Single View - 11/26/2020 3:37 pm CLINICAL HISTORY: PICC line placement COMPARISON: None. FINDINGS: Portable chest was obtained following placement of a right upper extremity PICC line. The catheter tip is in the SVC atrial junction.
[2020-11-26] MEDS ORDERED: FUROSEMIDE 100 MG/10 ML VIAL IV SCH (17:00)
--- NOTE | 2020-11-26 19:09 | PN ---
Date of Progress Note: 11/26/2020 Subjective: The patient has respiratory failure. She developed worsening of the dyspnea and has an extremity edema. She has nonoliguric acute kidney injury of multifactorial etiology. She remains no noliguric. She received Lasix yesterday, although shortness of breath is not resolving. The patient is on high flow oxygen therapy and she has COVID pneumonia. Review of Systems: The patient complains of leg swelling, generalized weakness, and shortness of breath. Physical Examination: Vital Signs: Blood pressure 120/70, heart rate 82, respiratory rat 19, temperature 97.3, SpO2 93%. Lungs: Diminished breath sounds. Extremities: Edema present. Neck: Supple. Cardiovascular: No rubs. No murmurs. Impression And Plan: 1.Acute kidney injury, multifactorial, possible contrast-induced nephropathy, prerenal azotemia seco ndary to renal hypoperfusion, acute tubular necrosis superimposed with atrial fibrillation and rapid ventricular response causing hypotension. Monitor urine output. Continue Lasix for volume control. The patient developed fluid overload and has dyspnea. The patient is treated for COVID pneumonia. 2.Hypertension. Monitor blood pressure and advance blood pressure medication according to blood pre ssure lock. 3.Incarcerated abdominal hernia, status post repair on November 11. Continue to follow up with surgical team. 4.Pseudohyponatremia secondary to hyperglycemia. Monitor glucose level. Continue insulin. 5.Hyperkalemia. The patient received normal saline bolus and Lasix yesterday. Continue to monitor electrolytes. 6.Diabetes mellitus. Continue treatment with insulin. TRUDY/MODL Voice ID: [id number] Report ID: [id number]
--- NOTE | 2020-11-26 22:09 | RAD REPORT ---
EXAM DESCRIPTION: RAD - Abdomen 1 View (KUB) - 11/26/2020 10:00 pm CLINICAL HISTORY: abdominal distension COMPARISON: Abdomen 1 View (KUB) dated 11/17/2020; Chest Single View dated 11/26/2020 FINDINGS: Exam is limited by large body habitus affects. Partially imaged lung bases show extensive airspace disease. These finding are addressed on separate chest report. Stomach is mostly decompresse d. No obstruction, free air or pneumatosis. Ascites can't be excluded. No suspicious calcifications. No significant bony findings IMPRESSION: No dilated or obstructed bowel identified. No free air or pneumatosis seen. Exam is limited by large body habitus. Ascites cannot be excluded
[2020-11-26] MEDS: FUROSEMIDE 40 MG/4 ML VIAL IV SCH (22:19)
[2020-11-26] MEDS: APIXABAN 2.5 MG TABLET PO SCH (22:19)
[2020-11-27] MEDS: HYDROMORPHONE HCL 0.5 MG/0.5 ML INJ IV PRN ×3 (03:10→18:13)
[2020-11-27] MEDS: ONDANSETRON 4 MG/2 ML VIAL IV PRN ×2 (03:10→15:03)
[2020-11-27 04:59] LABS: Absolute Lymphocytes (CBC) 0.2 K/uL (0.7-4.9); Hematocrit 28.8 % (36.0-45.0); Lymphocytes % 2.2 % (15.3-44.8); MPV 10.8 fL (7.6-11.3); RBC Red Blood Cell Count 3.06 M/uL (3.86-4.86)
[2020-11-27 05:02] LABS: C-Reactive Protein 71.7 mg/L (<3.00); Ferritin 716.8 ng/mL (8-388); Magnesium 1.9 mg/dL (1.8-2.4); Potassium 4.5 mmol/L (3.5-5.1)
--- NOTE | 2020-11-27 06:37 | P.PN ---
Subjective Date of Service: 11/27/20 Chief Complaint: Respiratory failure Subjective: No new changes (o/n felt some abdominal distention, KUB done/ok, feeling better this morning. reports she is breathing better. BM yesterday. no nausea/vomiting. CXR ~same, and inflammatory markers increased) Review of Systems 10-point ROS is otherwise unremarkable Physical Examination - Vital Signs Temperature: 97.3 F Blood Pressure: 138/84 Pulse: 91 Respirations: 26 Pulse Ox (%): 92 Assessment & Plan Physician Review Additional Text: Physical Exam Gen: AAOx3, appears fatigued HEENT: normal conjunctiva, sclera anicteric CV: irregularly irregular rhythm, trace to 1+ edema bilateral lower extremities to thighs Pulm: non labored on HFNC, +Dry cough Abd: soft, mild tenderness along surgical incisions Neuro: moves all extremities, generalized weakness Problem List Abdominal pain, incarcerated ventral hernia, s/p repair on 11/11 new onset /finding Afib with RVR EYAL, resolved DM2, insulin dependent HTN Anxiety Chronic pain COVID 19 infection Acute hypoxemic respiratory failure secondary to COVID 19 pneumonia Abdominal pain, incarcerated ventral hernia, s/p repair on 11/11 -s/p ventral hernia repair on 11/11, continue abdominal binder as tolerated -tolerating diet -+flatus, last BM yesterday -colace BID EYAL, edema -EYAL, improved - multifactorial, prerenal/cardiorenal possible contrast-induced nephropathy. Followed by nephrology -edema improving, started 80mg IV lasix BID 11/26 per nephrology Acute hypoxemic respiratory failure secondary to COVID 19 pneumonia -appears more tired today, oxygen requirement back and forth from 80% to 100% FIO2 -still requiring significant levels of oxygen supplementation -steroids reduced on 11/25, inflammatory markers increasing, oxygen requirement slightly increased, increase sterods back to 80mg BIG -continue vitamin supplementation, s/p ivermectin -patient was not on any anticoagulation due to thrombocytopenia and history of cirrhosis. -her thrombocytopenia improved and 11/26, over 100, discuss with pulmonology and started Eliquis 2.5 mg b.i.d. on 11/26 -pt has moderate ecchymosis on b/l flanks and groin, possibly from marroquin / surgery / U/S attempt, has been stable -monitor for bleed new onset, finding Afib w/ RVR -amio drip 11/13, transitioned to PO amio, then discontinued due to worsening hypoxia / CXR findings, per pulmonology, can't r/o amio toxicity. transitioned to verapamil on 11/22 -cardiology following -better rate control, pt without palpitations/chest pain DM2, insulin dependent -insulin sliding scale / accucheks, lantus - titrate for better glucose control -Adnexal mass noted on CT, unlikely to be causing issue, U/S attempted, however unable to complete due to patient's discomfort. obtain ultrasound as an outpatient Diet: ADA VTE: SCDs, thrombocytopenia Code: full Disposition: discussed with patient regarding slow improvement, may be appropriate for SNF vs LTAC given her oxygen need and weakness, she said we'll see how things go in the next few days anticipate hospitalization for several more days Time Spent Managing Pts Care (In Minutes): 35
[2020-11-27] MEDS: INSULIN -REGULAR HUMAN 50 UNIT/0.5 ML ML SQ SCH ×4 (08:55→21:00)
[2020-11-27] MEDS: DIAZEPAM 5 MG TABLET PO PRN ×3 (08:56→23:24)
[2020-11-27] MEDS: HYDROCODONE/APAP 5/325 MG TAB PO PRN ×3 (08:56→21:29)
[2020-11-27] MEDS: INSULIN GLARGINE 100 UNITS/ML SQ SCH ×2 (08:56→21:00)
[2020-11-27] MEDS: ZINC SULFATE 220 MG CAP PO SCH (08:56)
[2020-11-27] MEDS: DOCUSATE NA 100 MG CAP PO SCH ×2 (08:56→21:00)
[2020-11-27] MEDS: FUROSEMIDE 40 MG/4 ML VIAL IV SCH ×2 (08:57→21:00)
[2020-11-27] MEDS: VERAPAMIL HCL 80 MG TABLET PO SCH ×3 (08:57→21:28)
[2020-11-27] MEDS: ENSURE HIGH PROTEIN 237 ML CAN PO SCH ×3 (08:57→21:00)
[2020-11-27] MEDS: ASCORBIC ACID 500 MG TABLET PO SCH (08:57)
[2020-11-27] MEDS: VITAMIN D 5,000 UNIT CAP PO SCH (08:57)
[2020-11-27] MEDS: APIXABAN 2.5 MG TABLET PO SCH (08:57)
[2020-11-27] MEDS: METHYLPREDNISOLONE 40 MG INJ IV SCH ×2 (08:57→21:29)
--- NOTE | 2020-11-27 09:00 | RAD REPORT ---
EXAM DESCRIPTION: [place] Single View11/27/2020 6:12 am CLINICAL HISTORY: Chest pain COMPARISON: November 26 FINDINGS: No significant change in extensive bilateral pulmonary opacities. Heart remains enlarged. A significant pleural effusion is not seen. PICC line in place IMPRESSION: No significant change in extensive bilateral pulmonary opacities which could be pneumoni a or pulmonary edema
[2020-11-27] MEDS ORDERED: SODIUM CHLORIDE 0.9% 10ML INJ IV PRN (11:55)
[2020-11-27] MEDS: PANTOPRAZOLE 40 MG INJ IVP SCH ×2 (13:35→21:29)
[2020-11-27 21:15] LABS: Urine Appearance TURBID (Clear); Urine Blood 3+ (Negative); Urine Color ORANGE (Yellow); Urine Glucose NEGATIVE (Negative); Urine Protein TRACE (Negative); Urine Specific Gravity 1.015 (1.005-1.030); Urine pH 5.5 (5.0-7.0)
[2020-11-27 21:24] LABS: Urine Bilirubin NEGATIVE (Negative); Urine Microscopic Reflex ORDER UMIC
[2020-11-27 21:44] LABS: Urine Bacteria 20-50 /HPF (<20); Urine Mucus 2+ /HPF (NONE SEEN); Urine RBC 20-50 /HPF (NONE SEEN); Urine Yeast PRESENT (NONE SEEN)
--- NOTE | 2020-11-27 22:53 | PN ---
Date of Progress Note: 11/27/2020 Chief Complaint: Respiratory failure, COVID pneumonia. History Of Present Illness: The patient remains on high oxygen flow. The patient complains of dyspn ea, generalized weakness. She had episode of confusion. She was complaining of abdominal pain and F oley catheter was placed to monitor urine output. The patient was started on Lasix for shortness of breath and worsening of the congestive changes on the chest x-ray. Review of Systems: The patient is lethargic, cannot provide review of systems. Physical Examination: Lungs: Diminished breath sounds bilaterally. Heart: S1, S2. Extremities: Edema present. Impression And Plan: 1.Acute kidney injury, nonoliguric, multifactorial, possible contrast induced nephropathy, prerenal azotemia secondary to renal hypoperfusion, complicated by acute tubular necrosis with superimposed ca rdiorenal syndrome related to atrial fibrillation with rapid ventricular response, which will lean to hypotension and renal hypoperfusion. Continue to monitor urine output. Continue Lasix for volume c ontrol and to control congestive heart failure. 2.The patient has COVID pneumonia, hypoxemic respiratory failure. Continue treatment for COVID pneu monia. 3.Hypertension. Monitor blood pressure and adjust medication. 4.Incarcerated abdominal hernia, status post repair on November 11. Further recommendation from primary team. 5.Hyperkalemia, resolved. The patient will continue Lasix. At this time, the patient is not on potassium sparing diuretic. 6.Diabetes mellitus. Continue insulin. EB/MODL Voice ID: [id number] Report ID: [id number]
[2020-11-28] MEDS: HYDROMORPHONE HCL 0.5 MG/0.5 ML INJ IV PRN (00:13)
[2020-11-28] MEDS ORDERED: ZIPRASIDONE MESYLA 20 MG/VIAL IM PRN (04:31)
[2020-11-28] MEDS ORDERED: WATER FOR INJ,STERILE 10 ML IM PRN (04:31)
[2020-11-28] MEDS ORDERED: ZIPRASIDONE MESYLA 20 MG/VIAL IM ONE (04:54)
[2020-11-28] MEDS ORDERED: WATER FOR INJ,STERILE 10 ML ONE (04:54)
[2020-11-28 05:17] LABS: Hematocrit 29.2 % (36.0-45.0); MPV 11.9 fL (7.6-11.3); RBC Red Blood Cell Count 3.09 M/uL (3.86-4.86)
[2020-11-28 05:58] LABS: Potassium 4.8 mmol/L (3.5-5.1)
[2020-11-28] MEDS ORDERED: FLUCONAZOLE 400 MG IVPB 400 MG/200 ML BAG IV SCH (06:45)
[2020-11-28] MEDS ORDERED: Meropenem 1 GM/100 ML BAG IV SCH (06:45)
[2020-11-28] MEDS ORDERED: FLUCONAZOLE 200mg IVPB 200 MG/100 ML BAG IV SCH ×2 (07:00→08:00)
[2020-11-28] MEDS ORDERED: VANCOMYCIN 2.5 GM in NA CHLORIDE 0.9% 500 ML IVPB ONE (07:00)
[2020-11-28] MEDS ORDERED: Pharmacy Consult 1 EA XX PRN (07:05)
--- NOTE | 2020-11-28 07:05 | P.PN ---
Subjective Date of Service: 11/28/20 Chief Complaint: Respiratory failure Subjective: Worsening (confused overnight, pulling bIPAP/hfnc off at times, 100ml UOP, lasix held last night due to hypotension, given geodon this morning, groaning this morning, mumbling to questions. on BIPAP) Review of Systems is unable to be obtained Physical Examination - Vital Signs Temperature: 97.7 F Blood Pressure: 93/54 Pulse: 107 Respirations: 21 Pulse Ox (%): 90 Assessment & Plan Physician Review Additional Text: Physical Exam Gen: lethargic, opens eyes, follows basic commands, moaning HEENT: normal conjunctiva, sclera anicteric CV: irregularly irregular rhythm, 1+ edema bilateral lower extremities to thighs Pulm: diffuse crackles, labored on BIPAP Abd: distended, diffuse tenderness, worse along surgical incision Neuro: moves all extremities Problem List Abdominal pain, incarcerated ventral hernia, s/p repair on 11/11 new onset /finding Afib with RVR EYAL, resolved DM2, insulin dependent HTN Anxiety Chronic pain COVID 19 infection Acute hypoxemic respiratory failure secondary to COVID 19 pneumonia Abdominal pain, incarcerated ventral hernia, s/p repair on 11/11 -s/p ventral hernia repair on 11/11, continue abdominal binder as tolerated -+flatus, 2-3 small dark BMs yesterday -colace BID -general surgery to see today EYAL, edema -EYAL, - multifactorial, prerenal/cardiorenal possible contrast-induced nephropathy. Followed by nephrology -edema improved slightly, started 80mg IV lasix BID 11/26 per nephrology -held evening 11/27 for hypotension Acute hypoxemic respiratory failure secondary to COVID 19 pneumonia -worsening -ferritin/crp significantly increased -poor prognosis -marroquin inserted yesterday for strict i/os, urine with +LE, +WBC, +yeast, possible UTI vs contamination -did have e .coli UTI early in hospitalization and received zosyn x 7 days - last dose 11/19 -given worsening clinical status, will empirically cover -obtain blood, sputum cultures -merrem, vanc, diflucan ordered 11/28 -continue vitamin supplementation, s/p ivermectin -patient was not on any anticoagulation due to thrombocytopenia and history of cirrhosis. -her thrombocytopenia improved and 11/26, over 100, discuss with pulmonology and started Eliquis 2.5 mg b.i.d. on 11/26 -pt has moderate ecchymosis on b/l flanks and groin, possibly from marroquin / surgery / U/S attempt, has been stable -dark stool on 11/27, eliquis discontinued -monitor for bleed new onset, finding Afib w/ RVR -amio drip 11/13, transitioned to PO amio, then discontinued due to worsening hypoxia / CXR findings, per pulmonology, can't r/o amio toxicity. transitioned to verapamil on 11/22 -cardiology following -better rate control, pt without palpitations/chest pain DM2, insulin dependent -insulin sliding scale / accucheks, lantus - titrate for better glucose control -Adnexal mass noted on CT, unlikely to be causing issue, U/S attempted, however unable to complete due to patient's discomfort. obtain ultrasound as an outpatient Diet: ADA VTE: SCDs, thrombocytopenia Code: full Disposition: poor prognosis, worsening clinical status, continue ICU level of care Son updated yesterday, will update again today Time Spent Managing Pts Care (In Minutes): 50
[2020-11-28] MEDS: INSULIN -REGULAR HUMAN 50 UNIT/0.5 ML ML SQ SCH ×4 (07:30→19:40)
[2020-11-28] MEDS: INSULIN GLARGINE 100 UNITS/ML SQ SCH ×2 (07:33→19:40)
[2020-11-28] MEDS: ENSURE HIGH PROTEIN 237 ML CAN PO SCH ×3 (07:45→19:40)
[2020-11-28] MEDS: VITAMIN D 5,000 UNIT CAP PO SCH (07:45)
[2020-11-28] MEDS: ZINC SULFATE 220 MG CAP PO SCH (07:45)
[2020-11-28] MEDS: VERAPAMIL HCL 80 MG TABLET PO SCH ×3 (07:45→19:39)
[2020-11-28] MEDS: DOCUSATE NA 100 MG CAP PO SCH ×2 (07:45→19:40)
[2020-11-28] MEDS: ASCORBIC ACID 500 MG TABLET PO SCH (07:45)
[2020-11-28] MEDS: PANTOPRAZOLE 40 MG INJ IVP SCH ×2 (08:01→20:22)
[2020-11-28] MEDS: METHYLPREDNISOLONE 40 MG INJ IV SCH (08:04)
[2020-11-28] MEDS ORDERED: VANCOMYCIN 2 GM in NA CHLORIDE 0.9% 500 ML IVPB SCH (09:00)
[2020-11-28] MEDS ORDERED: FLUCONAZOLE 100 MG TAB PO SCH (09:00)
[2020-11-28] MEDS: FUROSEMIDE 40 MG/4 ML VIAL IV SCH ×2 (09:00→19:40)
[2020-11-28] MEDS ORDERED: VANCOMYCIN 1.75 GM in NA CHLORIDE 0.9% 500 ML IVPB SCH (09:00)
--- NOTE | 2020-11-28 09:28 | RAD REPORT ---
EXAM DESCRIPTION: RAD - Chest Single View - 11/28/2020 6:22 am CLINICAL HISTORY: f/u opacities/ edema Chest pain. COMPARISON: Chest Single View dated 11/27/2020; Abdomen 1 View (KUB) dated 11/26/2020; Chest Single Vi ew dated 11/26/2020; Chest Single View dated 11/26/2020 FINDINGS: Portable technique limits examination quality. Mild asymmetric bilateral pulmonary opacities are again noted, appearing mildly to moderately improve d since yesterday's study. The heart is mildly enlarged in size. Right-sided PICC line is stable in p osition. IMPRESSION: Mild to moderate improvement in lung aeration seen since yesterday's examination.
[2020-11-28 10:04] LABS: Bilirubin Direct 1.1 mg/dL (0-0.2); Bilirubin Total 2.2 mg/dL (0.2-1.0)
[2020-11-28] MEDS: Meropenem 1 GM/100 ML BAG IV SCH ×2 (10:36→20:22)
--- NOTE | 2020-11-28 12:50 | RAD REPORT ---
EXAM DESCRIPTION: US - Renal Ultrasound-Complete - 11/28/2020 12:32 pm CLINICAL HISTORY: imelda COMPARISON: Renal Ultrasound-Complete dated 11/10/2020None. FINDINGS: Renal size has not change from the November 10 examination. Renal cortical thickness and echog enicity are still normal range. No hydronephrosis or suspicious renal mass. Bladder is contracted or mostly contracted around a Rachel catheter. IMPRESSION: No hydronephrosis or suspicious renal mass. No identifiable changes from the November 10 study.
[2020-11-28] MEDS ORDERED: ALBUMIN HUMAN 25% 100 ML IV ONE (13:00)
[2020-11-28] MEDS ORDERED: NA CHLORIDE 0.9% 1,000 ML IV ONE (13:25)
[2020-11-28] MEDS ORDERED: NOREPINEPHRINE 4 MG in D5W 250 ML IV PRN (13:26)
[2020-11-28] MEDS ORDERED: VASOPRESSIN 80 UNIT in NA CHLORIDE 0.9% 250 ML IV PRN (16:13)
[2020-11-28] MEDS: NOREPINEPHRINE 8 MG in Dextrose 5%-Water 500 ML IV PRN ×2 (16:36→21:31)
[2020-11-28 16:40] VITALS: TEMP 97.4
[2020-11-28] MEDS ORDERED: METHYLPREDNISOLONE 125 MG INJ IV SCH (17:00)
[2020-11-28 18:10] VITALS: O2SAT 90
[2020-11-28 23:16] VITALS: BP 66/42
--- NOTE | 2020-11-28 23:59 | PN ---
Date of Progress Note: 11/28/2020 Subjective: The patient is critically ill. She is started on pressors for severe hypotension. She is on broad-spectrum antibiotics and vancomycin was started for higher risk of presumptive MRSA bacte remia. The patient is on Merrem. Cultures were done and pending. Previous cultures showed E coli, which was sensitive to Zosyn. The patient had renal ultrasound completed today and did not show obstructive uropathy. The patient is DNR. White count is 11.7, hemoglobin 9.4, platelet count 104. Creatinine level increased to 2.05 , sodium 136, potassium 4.8, chloride 99, CO2 25. The patient was found to have elevated liver funct ion test, AST 789, ALT is 792, likely she had shock liver. Review of Systems: Unobtainable. The patient is lethargic and confused. Objective: Extremities: Edema present. Heart: S1, S2. Impression And Plan: Acute kidney injury, severe sepsis, history of COVID pneumonia. The patient in on broad-spectrum antibiotics. She is on dexamethasone and 2 pressors today for blood pressure supp ort. Overall prognosis is poor. Family members decided about DNR status. EB/MODL Voice ID: [id number] Report ID: [id number]
[2020-11-29] MEDS ORDERED: FLUCONAZOLE 100 MG TAB PO SCH (09:00)
--- NOTE | 2020-11-30 20:46 | P.DS ---
Admission Date: 11/10/20 Discharge Date: 11/28/20 Disposition: Discharge Condition: Reason for Admission: Respiratory failure Consultations: General Surgery - Dr. Wade Nephrology - Dr. Lazo/Sly/Scout/Nando Pulmonology - Dr. Ross Procedures: PROBLEM LIST Acute hypoxemic respiratory failure secondary to COVID 19 pneumonia Abdominal pain, incarcerated ventral hernia, s/p repair on 11/11 new onset /finding Afib with RVR EYAL, resolved DM2, insulin dependent HTN Anxiety Chronic pain Brief History of Present Illness: 79yo F, PMH: ventral hernia, insulin dependent DM2, HTN, GERD, Anxiety Sent to ED by Dr. Wade from his office due to severe, progressively worsening abdominal pain over the past few days. Patient reports severe pain at hernia site, worsened with any movement that increases abdominal pressure. She had a normal BM this morning. Denies SOB, chest pain, vomiting. Son is at bedside, states patient was hardly able to move, pain would "bring her to her knees". She reports high blood pressure this morning at the office and took her medication. She has a known ventral hernia and was to undergo repair a few months ago but patient refused on day of surgery due to anxiety. In the ED, bloodwork revealed: hypokalemia, no leukocytosis. CT abd/pelvis: 8cm ventral hernia with 2cm neck, with fluid and fat stranding Patient is admitted for pain management and to undergo ventral hernia repair with Dr. Wade tomorrow. Hospital Course: Patient was found to be in new onset/finding of Afib pre-operative. Cardiology was consulted. Patient's heart rate was difficult to control due to pain and anxiety, delaying her surgery. She eventually underwent ventral hernia repair and post-operatively was doing well. Unfortunately her family members that had been visiting developed respiratory symptoms and tested positive for COVID-19. Patient subsequently developed respiratory symptoms and tested positive for COV ID-19. She continued to decline, requiring 100% FiO2 on HFNC and BIPAP. Her son spoke with the rest of the family and confirmed that she would want to be DNR. She continued to worsen, requiring pressors. She could not maintain MAP>60 despite IVF boluses, albumin, and maxed out on multiple pressors. She ultimately succumbed to her illness and passed on 11/28 at 2301 Vital Signs/Physical Exam: Temp Pulse Resp BP Pulse Ox 97.4 F 75 24 H 66/42 L 52 L 11/28/20 16:00 11/28/20 22:45 11/28/20 22:45 11/28/20 22:45 11/28/20 22:45 Laboratory Data at Discharge: WBC Cancelled 11/29/20 05:00 Hgb Cancelled 11/29/20 05:00 Hct Cancelled 11/29/20 05:00 Plt Count Cancelled 11/29/20 05:00 PT Cancelled 11/29/20 05:00 INR Cancelled 11/29/20 05:00 APTT Cancelled 11/29/20 05:00 Sodium Cancelled 11/29/20 05:00 Potassium Cancelled 11/29/20 05:00 BUN Cancelled 11/29/20 05:00 Creatinine Cancelled 11/29/20 05:00 Glucose Cancelled 11/29/20 05:00 Phosphorus 2.8 mg/dL (2.5-4.9) 11/26/20 04:20 Magnesium Cancelled 11/29/20 05:00 Total Bilirubin Cancelled 11/29/20 05:00 AST Cancelled 11/29/20 05:00 ALT Cancelled 11/29/20 05:00 Alkaline Phosphatase Cancelled 11/29/20 05:00 Home Medications: Aspirin Chewable [Aspirin Chewable*] 81 mg PO DAILY 06/23/20 Diazepam [Valium] 5 mg PO DAILY 06/23/20 Dicyclomine HCl 20 mg PO DAILY 06/23/20 Levothyroxine [Synthroid*] 125 mcg PO [id number] 06/23/20 Meclizine HCl 25 mg PO DAILY 06/23/20 Omeprazole [Prilosec] 40 mg PO DAILY 06/23/20 Pravastatin Sodium 40 mg PO DAILY 06/23/20 Promethazine Tab [Phenergan*] 12.5 mg PO Q6HP PRN 06/23/20 Amiodarone HCl [Cordarone*] 400 mg PO BID #80 tab 11/18/20 Ascorbic Acid [Vitamin C*] 500 mg PO DAILY #30 tablet 11/18/20 Cholecalciferol (Vitamin D3) [Vitamin D 5,000 IU Cap*] 5,000 unit PO DAILY #30 cap 11/18/20 Ensure High Protein 237 ml PO BID #60 can 11/18/20 Hydrocodone 5/APAP 325 [Industry 5/325*] 1 tab PO Q6H PRN #20 tab 11/18/20 Insulin Aspart [Novolog Flexpen] 15 unit SQ TID #1 cart 11/18/20 Loperamide [Imodium*] 2 mg PO Q4H PRN #15 cap 11/18/20 Metoprolol Tartrate [Lopressor*] 25 mg PO BID 6AM 6PM #60 tab 11/18/20 Zinc Sulfate [Zinc Sulfate*] 220 mg PO DAILY #30 cap 11/18/20 predniSONE [Prednisone*] 20 mg PO DAILY #7 tab 11/18/20 New Medications: Amiodarone HCl [Cordarone*] 400 mg PO BID #80 tab Ensure High Protein 237 ml PO BID #60 can Loperamide [Imodium*] 2 mg PO Q4H PRN #15 cap PRN Reason: Diarrhea Metoprolol Tartrate [Lopressor*] 25 mg PO BID 6AM 6PM #60 tab Hydrocodone 5/APAP 325 [Industry 5/325*] 1 tab PO Q6H PRN #20 tab PRN Reason: Pain Scale 5-7 (Moderate) Insulin Aspart [Novolog Flexpen] 15 unit SQ TID #1 cart predniSONE [Prednisone*] 20 mg PO DAILY #7 tab Ascorbic Acid [Vitamin C*] 500 mg PO DAILY #30 tablet Cholecalciferol (Vitamin D3) [Vitamin D 5,000 IU Cap*] 5,000 unit PO DAILY #30 cap Zinc Sulfate [Zinc Sulfate*] 220 mg PO DAILY #30 cap Diet: ADA Activity: Fall precautions Followup: Jones Ross MD [ACTIVE - CAN ADMIT] - 1 Week Omari Wade MD [ACTIVE - CAN ADMIT] - 1 Week [email or web address] [Primary Care Provider] - 1-2 Weeks Time spent managing pt's care (in minutes): 60
== END 2020-11-29 01:40 | disposition expired | DRG 335 ==
LOC: ER 14:14 → ERHOLD 16:17 → 2ND 19:34 → OBSVTOIN 11-10 12:46 → ERHOLD 11-10 14:14 → 3RD-ICU 11-14 14:55
PROVIDERS: ADMIT Hospitalist; ATTEND Hospitalist
PROC: 0DNE4ZZ Release Large Intestine, Percutaneous Endoscopic Approach (ICD-10-PCS; 2020-11-11)
PROC: 0WUF4JZ Supplement Abdominal Wall with Synthetic Substitute, Percutaneous Endoscopic Approach (ICD-10-PCS; 2020-11-11)
PROC: 0DN84ZZ Release Small Intestine, Percutaneous Endoscopic Approach (ICD-10-PCS; 2020-11-11)
PROC: 0WQF4ZZ Repair Abdominal Wall, Percutaneous Endoscopic Approach (ICD-10-PCS; principal; 2020-11-11 08:45)
PROC: 02HV33Z Insertion of Infusion Device into Superior Vena Cava, Percutaneous Approach (ICD-10-PCS; 2020-11-26)
DX: K43.6 Other and unspecified ventral hernia with obstruction, without gangrene (principal); U07.1 COVID-19; J12.82 Pneumonia due to coronavirus disease 2019; J96.01 Acute respiratory failure with hypoxia; E43 Unspecified severe protein-calorie malnutrition; N17.0 Acute kidney failure with tubular necrosis; A41.9 Sepsis, unspecified organism; R65.20 Severe sepsis without septic shock; E87.1 Hypo-osmolality and hyponatremia; Z68.41 Body mass index [BMI] 40.0-44.9, adult; I48.91 Unspecified atrial fibrillation; I95.9 Hypotension, unspecified; N14.1 Nephropathy induced by other drugs, medicaments and biological substances; T50.8X5A Adverse effect of diagnostic agents, initial encounter; E83.42 Hypomagnesemia; E87.6 Hypokalemia; E78.5 Hyperlipidemia, unspecified; K75.81 Nonalcoholic steatohepatitis (NASH); G89.29 Other chronic pain; F41.9 Anxiety disorder, unspecified; E03.9 Hypothyroidism, unspecified; K21.9 Gastro-esophageal reflux disease without esophagitis; E11.22 Type 2 diabetes mellitus with diabetic chronic kidney disease; I12.9 Hypertensive chronic kidney disease with stage 1 through stage 4 chronic kidney disease, or unspecified chronic kidney disease; N18.9 Chronic kidney disease, unspecified; Z66 Do not resuscitate
CPT/HCPCS: 36415; 71045; 74018; 74176; 76770; 76830; 80048; 80053; 80069; 80076; 81001; 81003; 81015; 82550; 82570; 82728; 82805; 82947; 83605; 83735; 84100; 84132; 84145; 84156; 84450; 84460; 85025; 85027; 85610; 85730; 86140; 86160; 87040; 87045; 87046; 87077; 87086; 87088; 87186; 87205; 87324; 87449; 88108; 93005; 93306; 94002; 94003; 94660; 94760; 94762; 96361; 96374; 96375; 97110; 97112; 97116; 97161; 97530; 99285; C9113; G0378; J0282; J1160; J1170; J1450; J1644; J1815; J1940; J2175; J2185; J2250; J2270; J2370; J2405; J2543; J2704; J2710; J2920; J2930; J3010; J3370; J3475; J3486; J7030; J7040; J7050; J7060; J7512; P9047; U0003